=== PATIENT | female | born 1945 | race Caucasian/White ===

== ENCOUNTER 2017-01-16 20:19 | Inpatient (IN) | payer OTHER, BC ==
[~2017-01-16] VITALS: Ht 160 cm; Wt 59.8 kg
[~2017-01-16 20:19] MED LIST: ARM1 PO; ATOR10TA82 PO; HYDR25TA4 PO; LISI-461 PO; SYN88 PO; TRAM-10 PO
[2017-01-16] MEDS ORDERED: SODIUM CHLORIDE 0.9% 1000ML 1,000 ML IV STA ×2 (21:08→22:49)
[2017-01-16 21:25] LABS: HEMATOCRIT 33.1 % (37-47); MEAN CELL VOLUME 86.6 fL (80-100); MEAN CORPUSCULAR HEMOGLOBIN 29.3 pg (25-34); MEAN CORPUSCULAR HGB CONC 33.8 g/dl (32-36); MEAN PLATELET VOLUME 8.3 fL (7.4-10.4); PLATELET COUNT 588 K/uL (130-400); RED BLOOD COUNT 3.82 M/uL (4.2-5.4); WHITE BLOOD COUNT 14.45 K/uL (4.8-10.8)
[2017-01-16 21:39] LABS: INR 1.2 (0.9-1.1); PARTIAL THROMBOPLASTIN RATIO 1.3; PROTHROMBIN TIME (PATIENT) 12.4 SECONDS (9.0-12.0)
[2017-01-16 21:51] LABS: BASO ABS # 0.13 K/uL (0-0.2); BASOPHIL % 0.9 %; COMPLETE YES; EOSINOPHIL % 1.7 %; LYMPH ABS # 1.63 K/uL (1.2-3.4); LYMPHOCYTE % 11.3 %; MYELOCYTE % 1.7 %; NEUTROPHILS % 80.1 %
[2017-01-16 22:20] LABS: BUN/CREATININE RATIO 9.6 (10-20); CALCIUM 9.1 mg/dl (8.5-10.1); CREATININE 9.2 mg/dl (0.60-1.20); MAGNESIUM 1.4 mg/dl (1.8-2.4); POTASSIUM 3.8 mmol/L (3.5-5.1); THYROID STIMULATING HORMONE 1.83 uIu/ml (0.300-4.500)
--- NOTE | 2017-01-16 22:39 | DIAGNOSTIC IMAGING REPORT ---
CT OF THE ABDOMEN AND PELVIS WITHOUT CONTRAST CLINICAL HISTORY: Acute renal failure. COMPARISON STUDY: CT of the abdomen and pelvis March 15, 2015. TECHNIQUE: Axial images of the abdomen and pelvis were obtained without IV contrast. Images were reviewed in the axial, sagittal, and coronal planes. FINDINGS: Visualized portions of the lower chest demonstrate a moderate sized hiatal hernia. There is a possible mildly enlarged lymph node adjacent to the hiatal hernia that measures 2.1 x 1.5 cm. No pneumatosis, free air or portal venous gas is present. There is mild dilatation of both collecting systems. There is no em hydronephrosis. There are no ureteral calculus. Unenhanced images of the liver, spleen, adrenal glands and pancreas are unremarkable. There is no biliary ductal dilatation status post cholecystectomy. There is slight mucosal fat deposition within the colon. The appendix is normal. There are calcified uterine fibroids. No suspicious skeletal lesions are identified. IMPRESSION: 1. Slight dilatation of both collecting systems without em hydronephrosis. No urinary calculi. 2. Partially visualized nodule adjacent to a hiatal hernia within the lower chest. This could reflect an enlarged lymph node. A nonemergent chest CT is recommended. 3. No bowel obstruction. Electronically signed by: Gustabo Queen M.D. 01/16/2017 10:38 PM Dictated Date/Time: 01/16/2017 10:31 PM
[2017-01-17] VITALS (9 sets, daily range): BP systolic 96–134; BP diastolic 60–84; PULSE 71–85; TEMP 36.4–36.7; O2SAT 93–100; Ht 160 cm; Wt 59.8 kg
--- NOTE | 2017-01-17 00:09 | EMERGENCY ROOM VISIT NOTE ---
History Report prepared by Neeraj: Laura Morales Under the Supervision of: Dr. Lars Ya M.D. First contact with patient: 21:08 Chief Complaint: ABNORMAL LABS Stated Complaint: ABNORMAL LABS- PHYSICIAN REFERRED History of Present Illness The patient is a 71 year old female who presents to the Emergency Room with complaints of sudden abnormal labs that were noticed earlier today. The patient was reported to have a creatinine of 8.8. The patient was told to come into the ED for further evaluation of her hypotension and elevated kidney function tests. The patient states that she developed a loss of appetite about 10 days ago and has been experiencing generalized "malaise" for the past week. She is also experiencing diarrhea, which started 4 days ago. The patient state that she has lost 8 lbs over the past week. Pt denies LOC, headache, fevers, chills, diaphoresis, visual changes, neck pain, chest pain, breathing difficulties, nausea, vomiting, abdominal pain, back pain, melena, hematochezia, urinary symptoms, numbness, weakness, lymphadenopathy, rash, or other complaints. The patient also denies any recent antibiotic use or sick contacts. She states that she went to [place] 3 weeks ago, but has not been on any long trips since then. The patient adds that she has a history of pancreatitis secondary to a gall stone. Source of History: patient Onset: earlier today Position: other (global) Quality: other (abnormal labs) Timing: other (sudden) Associated Symptoms: + diarrhea Note: loss of appetite, generalized "malaise" Review of Systems See HPI for pertinent positives and negatives. A total of ten systems were reviewed and were otherwise negative. Past Medical & Surgical Medical Problems: (1) Breast cancer (2) HTN (hypertension) (3) Hyperlipidemia Family History Cancer Social History Smoking Status: Former Smoker Alcohol Use: other Drug Use: none Housing Status: lives alone Occupation Status: employed Current/Historical Medications Scheduled Anastrozole (Anastrozole), 1 MG PO DAILY Atorvastatin (Lipitor), 5 MG PO DAILY Hydrochlorothiazide (Hctz), 25 MG PO DAILY Levothyroxine Sodium (Synthroid), 88 MCG PO DAILY Lisinopril (Lisinopril), 10 MG PO DAILY Scheduled PRN Tramadol (Ultram), 1 TAB PO prn PRN for Pain Allergies Coded Allergies: Exemestane (Verified Allergy, Intermediate, HIVES, 01/16/17) Physical Exam Vital Signs Date Time Temp Pulse Resp B/P Pulse Ox O2 Delivery O2 Flow Rate FiO2 01/16/17 23:00 79 16 111/77 100 Room Air 01/16/17 21:31 79 01/16/17 21:30 76 20 99/65 100 Room Air 01/16/17 21:19 88 16 103/68 100 Room Air 01/16/17 21:19 98 Room Air 01/16/17 20:59 36.5 90 20 90/64 96 Room Air Physical Exam GENERAL: Awake, alert, well-appearing, in no distress HENT: Normocephalic, atraumatic. Oropharynx unremarkable. EYES: Normal conjunctiva. Sclera non-icteric. NECK: Supple. No nuchal rigidity. FROM. No JVD. RESPIRATORY: Clear to auscultation. CARDIAC: Regular rate, normal rhythm. Extremities warm and well perfused. Pulses equal. ABDOMEN: Soft, non-distended. No tenderness to palpation. No rebound or guarding. No masses. RECTAL: Deferred. MUSCULOSKELETAL: Chest examination reveals no tenderness. The back is symmetrical on inspection without obvious abnormality. There is no CVA tenderness to palpation. No joint edema. LOWER EXTREMITIES: Calves are equal size bilaterally and non-tender. No edema. No discoloration. NEURO: Normal sensorium. No sensory or motor deficits noted. SKIN: No rash or jaundice noted. Medical Decision & Procedures ER Provider Diagnostic Interpretation: CT results as stated below per my review and radiologist interpretation CT OF THE ABDOMEN AND PELVIS WITHOUT CONTRAST IMPRESSION: 1. Slight dilatation of both collecting systems without em hydronephrosis. No urinary calculi. 2. Partially visualized nodule adjacent to a hiatal hernia within the lower chest. This could reflect an enlarged lymph node. A nonemergent chest CT is recommended. 3. No bowel obstruction. Electronically signed by: Gustabo Queen M.D. 01/16/2017 10:38 PM Dictated Date/Time: 01/16/2017 10:31 PM Laboratory Results 01/16/17 21:13 Red Blood Count 3.82, Mean Corpuscular Volume 86.6, Mean Corpuscular Hemoglobin 29.3, Mean Corpuscular Hemoglobin Concent 33.8, Mean Platelet Volume 8.3 01/16/17 21:13 Test 01/16/17 21:13 01/16/17 23:00 White Blood Count 14.45 K/uL (4.8-10.8) Red Blood Count 3.82 M/uL (4.2-5.4) Hemoglobin 11.2 g/dL (12.0-16.0) Hematocrit 33.1 % (37-47) Mean Corpuscular Volume 86.6 fL (80-100) Mean Corpuscular Hemoglobin 29.3 pg (25-34) Mean Corpuscular Hemoglobin Concent 33.8 g/dl (32-36) Platelet Count 588 K/uL (130-400) Mean Platelet Volume 8.3 fL (7.4-10.4) RDW Standard Deviation 40.3 fL (36.4-46.3) RDW Coefficient of Variation 12.6 % (11.5-14.5) Neutrophils % (Manual) 80.1 % Lymphocytes % (Manual) 11.3 % Monocytes % (Manual) 4.3 % Eosinophils % (Manual) 1.7 % Basophils % (Manual) 0.9 % Myelocytes % 1.7 % Neutrophils # (Manual) 11.57 K/uL (1.4-6.5) Total Absolute Neutrophils 11.57 K/uL (1.4-6.5) Lymphocytes # (Manual) 1.63 K/uL (1.2-3.4) Total Absolute Lymphocytes 1.63 K/uL (1.2-3.4) Monocytes # (Manual) 0.62 K/uL (0.11-0.59) Eosinophils # (Manual) 0.25 K/uL (0-0.5) Basophils # (Manual) 0.13 K/uL (0-0.2) Myelocytes # 0.25 K/uL (0-0) Red Blood Cell Morphology Unremarkable Prothrombin Time 12.4 SECONDS (9.0-12.0) Prothromb Time International Ratio 1.2 (0.9-1.1) Activated Partial Thromboplast Time 33.2 SECONDS (21.0-31.0) Partial Thromboplastin Ratio 1.3 Anion Gap 16.0 mmol/L (3-11) Est Creatinine Clear Calc Drug Dose 4.6 ml/min Estimated GFR () 4.5 Estimated GFR (Non- 3.8 BUN/Creatinine Ratio 9.6 (10-20) Calcium Level 9.1 mg/dl (8.5-10.1) Magnesium Level 1.4 mg/dl (1.8-2.4) Total Bilirubin 0.3 mg/dl (0.2-1) Direct Bilirubin 0.1 mg/dl (0-0.2) Aspartate Amino Transf (AST/SGOT) 6 U/L (15-37) Alanine Aminotransferase (ALT/SGPT) 13 U/L (12-78) Alkaline Phosphatase 78 U/L (45-117) Total Protein 9.2 gm/dl (6.4-8.2) Albumin 3.4 gm/dl (3.4-5.0) Lipase 338 U/L (73-393) Thyroid Stimulating Hormone (TSH) 1.830 uIu/ml (0.300-4.500) Laboratory results reviewed by me Medications Administered Medications (Trade) Dose Ordered Sig/Vega Route Start Time Stop Time Status Last Admin Dose Admin Sodium Chloride 1,000 ml @ 999 mls/hr Q1H1M STAT IV 01/16/17 21:08 01/16/17 22:08 DC 01/16/17 21:21 999 MLS/HR Sodium Chloride (Nss 1000ml) 1,000 ml @ 200 mls/hr Q5H STAT IV 01/16/17 22:49 01/17/17 03:48 01/16/17 23:17 200 MLS/HR ECG Indication: weakness Rate (beats per minute): 81 Rhythm: normal sinus Findings: Q waves (Inferior), no acute ischemic change ED Course 2107: Ordered Sodium Chloride 1000 ml @ 999 mls/hr IV 2117: The patient was evaluated in room B11. A complete history and physical exam was performed. 2246: Upon reexamination, the patient was resting comfortably. I discussed the test results and treatment plan with her. The patient will be evaluated for further management. 2248: Ordered Sodium Chloride 1000 ml @ 200 mls/hr IV 0: Discussed the patient's case with Dr. Cuco BAGLEY. The patient will be evaluated for further treatment and disposition. Medical Decision Triage Nursing notes reviewed. The patient's presentation and history were concerning for possible renal failure. Etiologies such as metabolic, infection, hypo/hyperglycemia, electrolyte abnormalities, cardiac sources, intracerebral event, toxicologic, neurologic, as well as others were entertained. The patient was evaluated. She has a significant elevation of her creatinine. She notes feeling some general malaise but has no specific pain. She has had some loose stool. Stool studies as an outpatient or pending per the patient. She was hydrated. The patient underwent CT imaging which did not reveal any specific obstruction or major issues with the kidneys. The patient had a mild leukocytosis of 14,000. Her chemistry panel was unremarkable. LFTs, lipase, and TSH were unremarkable. Magnesium is mildly low. The patient has a urinalysis collected but it is still pending. Consultation was made with internal medicine. The patient was evaluated in the emergency department for further treatment. The chart was completed utilizing [employer] Speech voice recognition software. Grammatical errors, random word insertions, pronoun errors, and incomplete sentences are an occasional consequence of this system due to software limitations, ambient noise, and hardware issues. Any formal questions or concerns about the content, text, or information contained within the body of this dictation should be directly addressed to the physician for clarification. Consults Time Called: -- Consulting Physician: Dr. Cuco BAGLEY Returned Call: [phone] Discussed the patient's case with Dr. Cuco BAGLEY. The patient will be evaluated for further treatment and disposition. Impression Primary Impression: Acute renal failure Scribe Attestation The scribe's documentation has been prepared under my direction and personally reviewed by me in its entirety. I confirm that the note above accurately reflects all work, treatment, procedures, and medical decision making performed by me. Departure Information Dispostion Being Evaluated By Hospitalist Referrals Travis Valencia M.D. (PCP) Patient Instructions My [facility] Problem Qualifiers Primary Impression: Acute renal failure Acute renal failure type: unspecified Qualified Codes: N17.9 - Acute kidney failure, unspecified
[2017-01-17 00:10] LABS: URINE APPEARANCE CLEAR (CLEAR); URINE BILIRUBIN NEG (NEG); URINE COLOR YELLOW; URINE NITRITE NEG (NEG); URINE SPECIFIC GRAVITY 1.008 (1.000-1.030); UROBILINOGEN NEG (NEG)
[2017-01-17 00:28] LABS: MANUAL MICROSCOPIC REQUIRED? NO; REVIEW REQ? YES
[2017-01-17] MEDS ORDERED: ZOLPIDEM TARTRATE 5 MG TAB PO PRN (01:30)
[2017-01-17] MEDS ORDERED: TRAMADOL HCL 50 MG TAB PO PRN (01:30)
[2017-01-17] MEDS ORDERED: NITROGLYCERIN 0.4 MG SL PER TAB CHARGE SL PRN (01:30)
[2017-01-17] MEDS ORDERED: ACETAMINOPHEN 325 MG TAB PO PRN (01:30)
[2017-01-17] MEDS ORDERED: ONDANSETRON INJ 2 MG/ML 2 ML VIAL IV PRN (01:45)
[2017-01-17] MEDS ORDERED: SODIUM CHLORIDE 0.9% 1000ML 1,000 ML IV SCH (03:00)
[2017-01-17] MEDS ORDERED: MAGNESIUM SULFATE 1GM / D5W 1 GM in PREMIXED IN D5W 100 ML IV STA (03:07)
[2017-01-17] MEDS: CEFTRIAXONE SOD INJ 1 GM in DEXTROSE 5% ADD-VANTAGE 50ML 50 ML IV SCH (03:37)
--- NOTE | 2017-01-17 05:44 | History and Physical ---
History & Physical Date & Time of Service: Jan 17, 2017 at 05:29. Date of Physical examination 01/16/2017 Chief Complaint: Acute Renal Failure, Hypomagnesemia Primary Care Physician: Travis Valencia M.D. History of Present Illness Source: patient The patient is a 71-year-old female who presents to the emergency department after being referred from her doctor's office for hypotension and abnormal kidney function tests. Patient reports that she lost her appetite about 10 days previously and has been feeling fatigued and more lethargic over the past week. She did start to experience diarrhea about 4 days ago and has persisted. She reports an 8 pound weight loss over the past week. She denies any recent travel or sick contacts. She has not been on any recent antibiotics. Past Medical/Surgical History Medical Problems: (1) Breast cancer Status: Chronic (2) HTN (hypertension) Status: Chronic (3) Hyperlipidemia Status: Chronic Family History Cancer Social History Smoking Status: Former Smoker Smokeless Tobacco Use: No Alcohol Use: none Drug Use: none Occupational Status: employed Multi-Drug Resistant Organisms History of MDRO: No Allergies Coded Allergies: Exemestane (Verified Allergy, Intermediate, HIVES, 01/16/17) Home Medications Scheduled Anastrozole (Anastrozole), 1 MG PO DAILY Atorvastatin (Lipitor), 5 MG PO DAILY Hydrochlorothiazide (Hctz), 25 MG PO DAILY Levothyroxine Sodium (Synthroid), 88 MCG PO DAILY Lisinopril (Lisinopril), 10 MG PO DAILY Scheduled PRN Tramadol (Ultram), 1 TAB PO prn PRN for Pain Review of Systems The patient denies chest pain, palpitations, shortness of breath, cough, lower extremity swelling, vision change, hearing change, sore throat, fevers, chills, sweats, vomiting, abdominal pain, pelvic pain, blood in urine or stool, dysuria , urinary frequency or urgency, memory loss, rash, abnormal bruising or bleeding , imbalance, focal weakness, numbness or tingling in arms or legs, arthralgias or myalgias, back or neck pain, night sweats, or allergy symptoms. The review of systems is otherwise negative other than for that already noted above, and at least 10 systems have been reviewed. Physical Exam Vital Signs Date Time Temp Pulse Resp B/P Pulse Ox O2 Delivery O2 Flow Rate FiO2 01/17/17 03:50 36.4 85 18 134/84 100 Room Air 01/17/17 02:00 76 16 107/61 99 Room Air 01/17/17 01:04 75 01/17/17 01:00 76 16 113/77 99 Room Air 01/16/17 23:00 79 16 111/77 100 Room Air 01/16/17 21:31 79 01/16/17 21:30 76 20 99/65 100 Room Air 01/16/17 21:19 88 16 103/68 100 Room Air 01/16/17 21:19 98 Room Air 01/16/17 20:59 36.5 90 20 90/64 96 Room Air The patient is awake, well-developed and adequately nourished, alert and oriented 3, normocephalic and atraumatic, lying in bed and in no acute distress. HEENT--PERRL, EOMI, mucous membranes and oropharynx very dry. Neck--supple, no JVD or bruits, thyroid normal, trachea midline, no adenopathy. Heart--normal S1 and S2, no extra beats, no murmurs, rubs or gallops. Lungs--clear bilaterally with good air movement, no respiratory distress, no accessory muscle use. Abdomen--normal bowel sounds and soft, nontender and nondistended, no hernias or masses, no organomegaly. Extremities--no cyanosis, clubbing or edema. There are good distal pulses b/l. Dermatologic--normal skin turgor, normal color, warm and dry, no abnormal lymph nodes, no rash. Neurologic--cranial nerves II through XII grossly intact, motor and sensory examination normal. Rheumatologic--normal range of motion, nontender, muscles and joints. Psychiatric--normal affect. Diagnostics Laboratory Results Results Past 24 Hours Test 01/16/17 21:13 01/16/17 23:00 Range/Units White Blood Count 14.45 4.8-10.8 K/uL Red Blood Count 3.82 4.2-5.4 M/uL Hemoglobin 11.2 12.0-16.0 g/dL Hematocrit 33.1 37-47 % Mean Corpuscular Volume 86.6 80-100 fL Mean Corpuscular Hemoglobin 29.3 25-34 pg Mean Corpuscular Hemoglobin Concent 33.8 32-36 g/dl Platelet Count 588 130-400 K/uL Mean Platelet Volume 8.3 7.4-10.4 fL RDW Standard Deviation 40.3 36.4-46.3 fL RDW Coefficient of Variation 12.6 11.5-14.5 % Neutrophils % (Manual) 80.1 % Lymphocytes % (Manual) 11.3 % Monocytes % (Manual) 4.3 % Eosinophils % (Manual) 1.7 % Basophils % (Manual) 0.9 % Myelocytes % 1.7 % Neutrophils # (Manual) 11.57 1.4-6.5 K/uL Total Absolute Neutrophils 11.57 1.4-6.5 K/uL Lymphocytes # (Manual) 1.63 1.2-3.4 K/uL Total Absolute Lymphocytes 1.63 1.2-3.4 K/uL Monocytes # (Manual) 0.62 0.11-0.59 K/uL Eosinophils # (Manual) 0.25 0-0.5 K/uL Basophils # (Manual) 0.13 0-0.2 K/uL Myelocytes # 0.25 0-0 K/uL Red Blood Cell Morphology Unremarkable Prothrombin Time 12.4 9.0-12.0 SECONDS Prothromb Time International Ratio 1.2 0.9-1.1 Activated Partial Thromboplast Time 33.2 21.0-31.0 SECONDS Partial Thromboplastin Ratio 1.3 Sodium Level 135 136-145 mmol/L Potassium Level 3.8 3.5-5.1 mmol/L Chloride Level 101 98-107 mmol/L Carbon Dioxide Level 18 21-32 mmol/L Anion Gap 16.0 3-11 mmol/L Blood Urea Nitrogen 88 7-18 mg/dl Creatinine 9.20 0.60-1.20 mg/dl Est Creatinine Clear Calc Drug Dose 4.6 ml/min Estimated GFR () 4.5 Estimated GFR (Non- 3.8 BUN/Creatinine Ratio 9.6 10-20 Random Glucose 107 70-99 mg/dl Calcium Level 9.1 8.5-10.1 mg/dl Magnesium Level 1.4 1.8-2.4 mg/dl Total Bilirubin 0.3 0.2-1 mg/dl Direct Bilirubin 0.1 0-0.2 mg/dl Aspartate Amino Transf (AST/SGOT) 6 15-37 U/L Alanine Aminotransferase (ALT/SGPT) 13 12-78 U/L Alkaline Phosphatase 78 45-117 U/L Total Protein 9.2 6.4-8.2 gm/dl Albumin 3.4 3.4-5.0 gm/dl Lipase 338 73-393 U/L Thyroid Stimulating Hormone (TSH) 1.830 0.300-4.500 uIu/ml Urine Color YELLOW Urine Appearance CLEAR CLEAR Urine pH 6.0 4.5-7.5 Urine Specific [place] 1.008 1.000-1.030 Urine Protein 1+ NEG Urine Glucose (UA) NEG NEG Urine Ketones NEG NEG Urine Occult Blood TRACE NEG Urine Nitrite NEG NEG Urine Bilirubin NEG NEG Urine Urobilinogen NEG NEG Urine Leukocyte Esterase LARGE NEG Urine WBC (Auto) >30 0-5 /hpf Urine RBC (Auto) 0-4 0-4 /hpf Urine Hyaline Casts (Auto) 1-5 0-5 /lpf Urine Epithelial Cells (Auto) 10-20 0-5 /lpf Urine Bacteria (Auto) NEG NEG Microbiology Results 01/16/17 Urine Culture, Received Pending Diagnostic Radiology Patient Name: MASOUD COREAS Unit Number: [id number] Dictated: 01/16/172230 Transcribed: 01/16/172230 JEANNIE Printed Date/Time: [~ rep prt dt]/[~ rep prt tm] [~ rep ct labl] - [~ rep ct ivnm] [facility] [place] [address] Dictated: 01/16/172230 Transcribed: 01/16/172230 JEANNIE Printed Date/Time: [~ rep prt dt]/[~ rep prt tm] [~ rep ct labl] - [~ rep ct ivnm] CT OF THE ABDOMEN AND PELVIS WITHOUT CONTRAST CLINICAL HISTORY: Acute renal failure. COMPARISON STUDY: CT of the abdomen and pelvis March 15, 2015. TECHNIQUE: Axial images of the abdomen and pelvis were obtained without IV contrast. Images were reviewed in the axial, sagittal, and coronal planes. FINDINGS: Visualized portions of the lower chest demonstrate a moderate sized hiatal hernia. There is a possible mildly enlarged lymph node adjacent to the hiatal hernia that measures 2.1 x 1.5 cm. No pneumatosis, free air or portal venous gas is present. There is mild dilatation of both collecting systems. There is no em hydronephrosis. There are no ureteral calculus. Unenhanced images of the liver, spleen, adrenal glands and pancreas are unremarkable. There is no biliary ductal dilatation status post cholecystectomy. There is slight mucosal fat deposition within the colon. The appendix is normal. There are calcified uterine fibroids. No suspicious skeletal lesions are identified. IMPRESSION: 1. Slight dilatation of both collecting systems without em hydronephrosis. No urinary calculi. 2. Partially visualized nodule adjacent to a hiatal hernia within the lower chest. This could reflect an enlarged lymph node. A nonemergent chest CT is recommended. 3. No bowel obstruction. Electronically signed by: Gustabo Queen M.D. 01/16/2017 10:38 PM Dictated Date/Time: 01/16/2017 10:31 PM The status of this report is Signed. Draft = Not yet reviewed or approved by Radiologist. Signed = Reviewed and approved by Radiologist. <AttendingPhy></AttendingPhy> <FamilyPhy>Travis Valencia M.D.</FamilyPhy> < PrimaryPhy>Travis Valencia M.D.</PrimaryPhy> <UnitNumber>[id number]</UnitNumber > <VisitNumber>[id number]</VisitNumber> <PatientName>LYUDMILA,MASOUD Rosario</ PatientName> <DateOfBirth>1945</DateOfBirth> <Location>[facility]</Location> < ServiceDate>01/16/17</ServiceDate> <MNE>ESINDI</MNE> <OrderingPhy>Lars Ya MD</OrderingPhy> <OrderingPhyMNE>f rep ord dr light</OrderingPhyMNE> < DictatingPhyMNE>f rep dict dr light</DictatingPhyMNE> <CCListMNE>f rep ct kuldeep</ CCListMNE> <AdmittingPhyMNE>f pt admit dr light</AdmittingPhyMNE> <AttendingPhyMNE >f pt attend dr light</AttendingPhyMNE> <ConsultingPhyMNE>f pt consult dr light</ConsultingPhyMNE> <FamilyPhyMNE>f pt fam dr light</FamilyPhyMNE> <OtherPhyMNE>f pt other dr light</OtherPhyMNE> < PrimaryPhyMNE>f pt prim care dr light</PrimaryPhyMNE> <ReferringPhyMNE>f pt referring dr light</ReferringPhyMNE> EKG EKG shows normal sinus rhythm at 81 bpm, no acute ST-T changes, and no change compared to 03/18/2015. Impression Assessment and Plan Acute renal failure/dehydration--patient's creatinine in the outpatient setting was 8.8, and in the emergency department is 9.2. She'll be admitted to the telemetry unit and will continue hydration with normal saline at 200 ML's per hour. We'll follow serial CBC with differential, BMP and magnesium levels. We will hold lisinopril 10 mg by mouth daily, and HCTZ 25 mg by mouth daily. Her diarrhea has undoubtedly contributed to her deficient renal dysfunction. Her urine looks like it might be infected, and will start ceftriaxone [address] of the abdomen and pelvis did not show any acute pathology. We'll consult nephrology. Diarrhea--stool studies are pending at this time. She'll be placed on a full liquid diet for now. Place on probiotics. Hypomagnesemia--magnesium level on intravenous 1.4. We'll give 1 g magnesium IV and repeat labs in the a.m. Breast cancer--continue anastrozole 1 mg by mouth daily. Hypercholesterolemia--continue atorvastatin 5 mg by mouth daily. Hypothyroidism-continue levothyroxine sodium 88 g by mouth daily. Level of Care Telemetry Advanced Directives Existing Advance Directive: No Existing Living Will: No Existing Power of Justice Court Judge: No Resuscitation Status FULL RESUSCITATION VTE Prophylaxis VTE Risk Assessment Done? Y/N: Yes Risk Level: Moderate Given or contraindicated: SCD's Social Service Consult None Apply
[2017-01-17] MEDS: LEVOTHYROXINE 88 MCG TAB PO SCH (06:19)
[2017-01-17] MEDS ORDERED: ATORVASTATIN 10 MG TAB PO SCH (09:00)
[2017-01-17] MEDS: FAMOTIDINE 20 MG TAB PO SCH ×2 (09:03→20:49)
[2017-01-17] MEDS: SODIUM BICARBONATE 8.4% INJ 150 MEQ in DEXTROSE 5% 1000ML 1,000 ML IV SCH ×2 (09:10→20:48)
[2017-01-17] MEDS: LACTOBACILLUS ACIDOPHILUS (FLORANEX) TAB PO SCH ×3 (09:10→17:09)
[2017-01-17] MEDS: ANASTROZOLE 1 MG TAB PO SCH (09:10)
[2017-01-17 09:49] LABS: PHOSPHORUS 6.9 mg/dl (2.5-4.9)
--- NOTE | 2017-01-17 11:25 | Nephrology Consultation ---
Nephrology Consultation Date & Providers Date of Consultation: Jan 17, 2017. Primary Care Provider: Travis Valencia M.D. Referring Provider: Reason for Consultation Evaluation management for acute kidney injury and metabolic acidosis. History of Present Illness Carissa Is a 71-year-old female with past medical history significant for well- controlled hypertension, prior history of breast cancer, pancreatitis, cholecystectomy admitted to the hospital with acute kidney injury. nephrologic consult was requested for further evaluation management for acute kidney injury ppm. Electronic medical records including labs and imaging are reviewed in detail during patient's visit. Carissa has no history of chronic kidney disease, baseline creatinine has been around 0.9-1.0. She has been otherwise healthy until 2-3 weeks ago when she started overall not feeling well, nausea,anorexia and started losing weight, lost almost 8 pounds over 2 weeks. 5 days prior to admission she started having diarrhea with watery stool without any blood in the stool. Denied vomiting or abdominal pain. she has been trying to drink liquids to compensate. she continued taking lisinopril and hydrochlorothiazide. Took Tylenol occasionally but did not take any NSAIDs. did not have any arthralgia, skin rashes, headache, hemoptysis, hematemesis, sinus congestion, back or flank pain , lower extremity edema, hematuria or foamy urine. She has been voiding normally. She has been feeling lightheaded and went to see her primary care physician yesterday. Later in the evening she was called home and told to come to the emergency room as she was found to have acute kidney injury with creatinine above 8. On admission creatinine was 9.2 and BUN was 88. urinalysis on admission showed 1+ proteinuria, pyuria And microscopic hematuria. CT scan of abdomen and pelvis is at IV contrast was concerning for bilateral mild pelvi caliectasis, no nephrolithiasis. 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 She has been following with Oncology with yearly imaging study, no recurrence. Has history of hypertension, seems to be well controlled, was on lisinopril and hydrochlorothiazide, currently on hold. Nonsmoker drinks a glass of wine daily, no family history of chronic kidney disease or end-stage renal disease. 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 Currently she denies any shortness of breath or chest pain, nausea slightly better and was able to have breakfast this morning. Allergies Coded Allergies: Exemestane (Verified Allergy, Intermediate, HIVES, 01/16/17) Inpatient Medications Current Inpatient Medications Medications (Trade) Dose Ordered Sig/Vega Route Start Time Stop Time Status Last Admin Dose Admin Anastrozole (Arimidex Tab) 1 mg DAILY PO 01/17/17 09:00 02/16/17 08:59 Atorvastatin Calcium (Lipitor Tab) 5 mg DAILY PO 01/17/17 09:00 02/16/17 08:59 Levothyroxine Sodium (Synthroid Tab) 88 mcg DAILYBB PO 01/17/17 06:30 02/16/17 06:59 01/17/17 06:19 88 MCG Tramadol HCl 50 mg 50 mg Q4H PRN PO 01/17/17 01:30 02/16/17 01:29 Sodium Chloride (Nss 1000ml) 1,000 ml @ 200 mls/hr Q5H IV 01/17/17 03:00 02/16/17 02:59 01/17/17 03:26 200 MLS/HR Acetaminophen (Tylenol Tab) 650 mg Q4H PRN PO 01/17/17 01:30 02/16/17 01:29 Zolpidem Tartrate (Ambien Tab) 5 mg HSZ PRN PO 01/17/17 01:30 02/16/17 01:29 Nitroglycerin 0.4 mg 0.4 mg UD PRN SL 01/17/17 01:30 02/16/17 01:29 Ceftriaxone Sodium/Dextrose (Rocephin Inj/ Dextrose Add-Perkins 50ML) 50 ml @ 100 mls/hr Q24H IV 01/17/17 04:00 01/27/17 03:59 01/17/17 03:37 100 MLS/HR Famotidine (Pepcid Tab) 20 mg BID PO 01/17/17 09:00 02/16/17 08:59 Ondansetron HCl (Zofran Inj) 4 mg Q6H PRN IV 01/17/17 01:45 02/16/17 01:44 Lactobacillus Acidophilus (Floranex Tab) 4 tab TIDM PO 01/17/17 08:00 02/16/17 07:59 Family History Cancer Social History Smoking Status: Former Smoker Smokeless Tobacco Use: No Alcohol Use: none Drug Use: none Occupation: employed Review of Systems A complete review of systems was performed. Pertinent positives are noted above. All other systems are negative. Physical Exam Date Time Temp Pulse Resp B/P Pulse Ox O2 Delivery O2 Flow Rate FiO2 01/17/17 07:25 36.7 71 18 101/60 98 Room Air 01/17/17 03:50 36.4 85 18 134/84 100 Room Air 01/17/17 02:00 76 16 107/61 99 Room Air 01/17/17 01:04 75 01/17/17 01:00 76 16 113/77 99 Room Air 01/16/17 23:00 79 16 111/77 100 Room Air 01/16/17 21:31 79 01/16/17 21:30 76 20 99/65 100 Room Air 01/16/17 21:19 88 16 103/68 100 Room Air 01/16/17 21:19 98 Room Air 01/16/17 20:59 36.5 90 20 90/64 96 Room Air GENERAL: Elderly female, AAA x 3, anxious and tearful, not in any distress. HEENT: Atraumatic, normocephalic. NECK: Supple, no JVD, no carotid bruit appreciated. ENT: No sinus tenderness MOUTH and THROAT: Moist oral mucosa, no oral ulcer or pharyngeal erythema RESPIRATORY: Normal breathing efforts, no accessory muscle use, clear to auscultation bilaterally, no wheezes or rales. CARDIOVASCULAR: S1, S2 normal, rate rhythm regular. ABDOMEN: Soft, nontender, positive bowel sound. MUSCULOSKELETAL: No CVA tenderness. No joint swelling, erythema or tenderness. Normal range of motion. SKIN: No skin rash EXTREMITY: No lower extremity edema NEURO: No gross focal neurological deficit, speech fluent. PSYCHIATRY: Normal mood and judgment Laboratory Results Last 24 Hours Test 01/16/17 21:13 01/16/17 23:00 White Blood Count 14.45 K/uL Red Blood Count 3.82 M/uL Hemoglobin 11.2 g/dL Hematocrit 33.1 % Mean Corpuscular Volume 86.6 fL Mean Corpuscular Hemoglobin 29.3 pg Mean Corpuscular Hemoglobin Concent 33.8 g/dl Platelet Count 588 K/uL Mean Platelet Volume 8.3 fL RDW Standard Deviation 40.3 fL RDW Coefficient of Variation 12.6 % Neutrophils % (Manual) 80.1 % Lymphocytes % (Manual) 11.3 % Monocytes % (Manual) 4.3 % Eosinophils % (Manual) 1.7 % Basophils % (Manual) 0.9 % Myelocytes % 1.7 % Neutrophils # (Manual) 11.57 K/uL Total Absolute Neutrophils 11.57 K/uL Lymphocytes # (Manual) 1.63 K/uL Total Absolute Lymphocytes 1.63 K/uL Monocytes # (Manual) 0.62 K/uL Eosinophils # (Manual) 0.25 K/uL Basophils # (Manual) 0.13 K/uL Myelocytes # 0.25 K/uL Red Blood Cell Morphology Unremarkable Prothrombin Time 12.4 SECONDS Prothromb Time International Ratio 1.2 Activated Partial Thromboplast Time 33.2 SECONDS Partial Thromboplastin Ratio 1.3 Sodium Level 135 mmol/L Potassium Level 3.8 mmol/L Chloride Level 101 mmol/L Carbon Dioxide Level 18 mmol/L Anion Gap 16.0 mmol/L Blood Urea Nitrogen 88 mg/dl Creatinine 9.20 mg/dl Est Creatinine Clear Calc Drug Dose 4.6 ml/min Estimated GFR () 4.5 Estimated GFR (Non- 3.8 BUN/Creatinine Ratio 9.6 Random Glucose 107 mg/dl Calcium Level 9.1 mg/dl Magnesium Level 1.4 mg/dl Total Bilirubin 0.3 mg/dl Direct Bilirubin 0.1 mg/dl Aspartate Amino Transf (AST/SGOT) 6 U/L Alanine Aminotransferase (ALT/SGPT) 13 U/L Alkaline Phosphatase 78 U/L Total Protein 9.2 gm/dl Albumin 3.4 gm/dl Lipase 338 U/L Thyroid Stimulating Hormone (TSH) 1.830 uIu/ml Urine Color YELLOW Urine Appearance CLEAR Urine pH 6.0 Urine Specific [place] 1.008 Urine Protein 1+ Urine Glucose (UA) NEG Urine Ketones NEG Urine Occult Blood TRACE Urine Nitrite NEG Urine Bilirubin NEG Urine Urobilinogen NEG Urine Leukocyte Esterase LARGE Urine WBC (Auto) >30 /hpf Urine RBC (Auto) 0-4 /hpf Urine Hyaline Casts (Auto) 1-5 /lpf Urine Epithelial Cells (Auto) 10-20 /lpf Urine Bacteria (Auto) NEG Impression (1) Acute kidney injury (2) Metabolic acidosis, increased anion gap (3) Anemia (4) HTN (hypertension) (5) Hypomagnesemia Carissa is a 71-year-old female with no prior history of chronic kidney disease admitted with them 2 weeks history of anorexia, nausea, weight loss, feeling poorly and 5 days history of loose watery diarrhea. He she has been hypotensive and lightheaded prior to coming to the hospital and has been taking lisinopril and hydrochlorothiazide with ongoing diarrhea and poor p.o. intake. no NSAID use, no symptom suggestive of systemic vasculitis. Urinalysis was positive for low grade proteinuria, microscopic hematuria and pyuria. CT abdomen pelvis concerning for bilateral mild hydronephrosis without any nephrolithiasis or evidence of retroperitoneal fibrosis however, CT was done without contrast considering acute kidney injury. she received almost 4 liters of IV fluid since admission and blood pressure now slightly better and overall she is feeling a be eat better. Unclear etiology for acute kidney injury at this point however, differentials include prerenal versus ATN, cannot exclude possibility for intrinsic renal disease or some form of vasculitis. Unclear whether bilateral mild hydronephrosis is having any impact on her acute kidney injury. No retroperitoneal lymphadenopathy identified however with her history of breast cancer that would be always a concern. Recommendations --change IV fluid to D5 water with bicarb at 100 mL/hour -- check urine electrolytes and urine protein creatinine ratio --considering her age and abnormal urinary finding, will workup for paraproteinemia, vasculitis -- agree with holding lisinopril, hydrochlorothiazide and avoiding all nephrotoxins medications -- check CPK and hold statin as well as any nonessential medication -- dose medications for GFR less than 10 --if renal function does not improve, will consider repeating imaging study to follow up on bilateral hydro --currently no acute indication for emergency dialysis however in next 24 hours if renal function does not improve, patient starts to have volume overload or any significant electrolyte abnormality, may need to consider dialysis -- discussed in detail with the patient and patient verbalized understanding -- if in fact it is ATN, it may take weeks to recover Thank you for allowing me to participate in your patient's care. It was a pleasure to see Carissa This chart was completed utilizing [employer] Speech and voice recognition software. Grammatical errors, random word insertions, pronoun errors and incomplete sentences are occasional consequences of this system. Any questions or concerns about the content, text or information contained within the body of this dictation should be addressed directly to the physician for clarification.
[2017-01-17 12:15] LABS: URINE PROTIEN/CREAT RATIO 1.6 (0-0.2)
[2017-01-17 14:00] LABS: C-REACTIVE PROTEIN 4.54 mg/dl (0-0.29)
--- NOTE | 2017-01-17 18:08 | Family Medicine Progress Note ---
Progress Note Date of Service Jan 17, 2017. Subjective Pt evaluation today including: conversation w/ patient, physical exam, lab review, review of studies, conversation w/ rewards consultant Pain: Denies Voiding: no voiding problems Patient was seen at the bedside. Patient states that she is feeling better than yesterday. Her appetite has improved. Tolerated food well. She had one BM this morning and it was very loose, no blood was noted. Complains of nausea but denies vomiting. Denies any abdominal pain, hematochezia, melena, dysuria, dizziness, or any other additional symptoms. Constitutional: + fatigue, + weakness, + weight loss, No fever Respiratory: No cough, No shortness of breath, No sputum Cardiovascular: No chest pain, No edema Abdomen: + diarrhea, + nausea, No GI bleeding, No constipation, No pain, No vomiting Musculoskeletal: No muscle pain Female : No dysuria Skin: No rash Medications Current Inpatient Medications Medications (Trade) Dose Ordered Sig/Vega Route Start Time Stop Time Status Last Admin Dose Admin Anastrozole (Arimidex Tab) 1 mg DAILY PO 01/17/17 09:00 02/16/17 08:59 01/17/17 09:10 1 MG Atorvastatin Calcium (Lipitor Tab) 5 mg DAILY PO 01/17/17 09:00 02/16/17 08:59 Future Hold 01/17/17 09:04 5 MG Levothyroxine Sodium (Synthroid Tab) 88 mcg DAILYBB PO 01/17/17 06:30 02/16/17 06:59 01/17/17 06:19 88 MCG Tramadol HCl (Ultram Tab) 50 mg Q4H PRN PO 01/17/17 01:30 02/16/17 01:29 Acetaminophen (Tylenol Tab) 650 mg Q4H PRN PO 01/17/17 01:30 02/16/17 01:29 Zolpidem Tartrate (Ambien Tab) 5 mg HSZ PRN PO 01/17/17 01:30 02/16/17 01:29 Nitroglycerin 0.4 mg 0.4 mg UD PRN SL 01/17/17 01:30 02/16/17 01:29 Ceftriaxone Sodium/Dextrose (Rocephin Inj/ Dextrose Add-Serena 50ML) 50 ml @ 100 mls/hr Q24H IV 01/17/17 04:00 01/27/17 03:59 01/17/17 03:37 100 MLS/HR Famotidine (Pepcid Tab) 20 mg BID PO 01/17/17 09:00 02/16/17 08:59 01/17/17 09:03 20 MG Ondansetron HCl (Zofran Inj) 4 mg Q6H PRN IV 01/17/17 01:45 02/16/17 01:44 Lactobacillus Acidophilus 4 tab 4 tab TIDM PO 01/17/17 08:00 02/16/17 07:59 01/17/17 17:09 4 TAB Sodium Bicarbonate/ Dextrose (Sodium Bicarbonate 8.4% Inj/D5W 1000ml) 1,150 ml @ 100 mls/hr [id number] IV 01/17/17 09:00 02/16/17 08:59 01/17/17 09:10 100 MLS/HR Objective Vital Signs Date Time Temp Pulse Resp B/P Pulse Ox O2 Delivery O2 Flow Rate FiO2 01/17/17 14:50 36.6 74 16 102/67 98 Room Air 01/17/17 12:00 Room Air 01/17/17 11:00 36.6 77 18 111/75 98 Room Air 01/17/17 08:00 98 Room Air 01/17/17 07:25 36.7 71 18 101/60 98 Room Air 01/17/17 03:50 36.4 85 18 134/84 100 Room Air 01/17/17 02:00 76 16 107/61 99 Room Air 01/17/17 01:04 75 01/17/17 01:00 76 16 113/77 99 Room Air 01/16/17 23:00 79 16 111/77 100 Room Air 01/16/17 21:31 79 01/16/17 21:30 76 20 99/65 100 Room Air 01/16/17 21:19 88 16 103/68 100 Room Air 01/16/17 21:19 98 Room Air 01/16/17 20:59 36.5 90 20 90/64 96 Room Air Physical Exam General Appearance: WD/WN, no apparent distress Neck: supple, trachea midline Respiratory/Chest: chest non-tender, lungs clear, normal breath sounds, no respiratory distress, no accessory muscle use Cardiovascular: regular rate, rhythm, no edema Abdomen: normal bowel sounds, non tender, soft Extremities: non-tender, no pedal edema Neurologic/Psychiatric: alert, normal mood/affect, oriented x 3 Skin: normal color, warm/dry, no rash Laboratory Results Results Past 24 Hours Test 01/16/17 21:13 01/16/17 23:00 01/17/17 00:00 01/17/17 09:05 Range/Units White Blood Count 14.45 4.8-10.8 K/uL Red Blood Count 3.82 4.2-5.4 M/uL Hemoglobin 11.2 12.0-16.0 g/dL Hematocrit 33.1 37-47 % Mean Corpuscular Volume 86.6 80-100 fL Mean Corpuscular Hemoglobin 29.3 25-34 pg Mean Corpuscular Hemoglobin Concent 33.8 32-36 g/dl Platelet Count 588 130-400 K/uL Mean Platelet Volume 8.3 7.4-10.4 fL RDW Standard Deviation 40.3 36.4-46.3 fL RDW Coefficient of Variation 12.6 11.5-14.5 % Neutrophils % (Manual) 80.1 % Lymphocytes % (Manual) 11.3 % Monocytes % (Manual) 4.3 % Eosinophils % (Manual) 1.7 % Basophils % (Manual) 0.9 % Myelocytes % 1.7 % Neutrophils # (Manual) 11.57 1.4-6.5 K/uL Total Absolute Neutrophils 11.57 1.4-6.5 K/uL Lymphocytes # (Manual) 1.63 1.2-3.4 K/uL Total Absolute Lymphocytes 1.63 1.2-3.4 K/uL Monocytes # (Manual) 0.62 0.11-0.59 K/uL Eosinophils # (Manual) 0.25 0-0.5 K/uL Basophils # (Manual) 0.13 0-0.2 K/uL Myelocytes # 0.25 0-0 K/uL Red Blood Cell Morphology Unremarkable Prothrombin Time 12.4 9.0-12.0 SECONDS Prothromb Time International Ratio 1.2 0.9-1.1 Activated Partial Thromboplast Time 33.2 21.0-31.0 SECONDS Partial Thromboplastin Ratio 1.3 Sodium Level 135 136-145 mmol/L Potassium Level 3.8 3.5-5.1 mmol/L Chloride Level 101 98-107 mmol/L Carbon Dioxide Level 18 21-32 mmol/L Anion Gap 16.0 3-11 mmol/L Blood Urea Nitrogen 88 7-18 mg/dl Creatinine 9.20 0.60-1.20 mg/dl Est Creatinine Clear Calc Drug Dose 4.6 ml/min Estimated GFR () 4.5 Estimated GFR (Non- 3.8 BUN/Creatinine Ratio 9.6 10-20 Random Glucose 107 70-99 mg/dl Calcium Level 9.1 8.5-10.1 mg/dl Magnesium Level 1.4 1.8-2.4 mg/dl Total Bilirubin 0.3 0.2-1 mg/dl Direct Bilirubin 0.1 0-0.2 mg/dl Aspartate Amino Transf (AST/SGOT) 6 15-37 U/L Alanine Aminotransferase (ALT/SGPT) 13 12-78 U/L Alkaline Phosphatase 78 45-117 U/L Total Protein 9.2 6.4-8.2 gm/dl Albumin 3.4 3.4-5.0 gm/dl Lipase 338 73-393 U/L Thyroid Stimulating Hormone (TSH) 1.830 0.300-4.500 uIu/ml Urine Color YELLOW Urine Appearance CLEAR CLEAR Urine pH 6.0 4.5-7.5 Urine Specific [place] 1.008 1.000-1.030 Urine Protein 1+ NEG Urine Glucose (UA) NEG NEG Urine Ketones NEG NEG Urine Occult Blood TRACE NEG Urine Nitrite NEG NEG Urine Bilirubin NEG NEG Urine Urobilinogen NEG NEG Urine Leukocyte Esterase LARGE NEG Urine WBC (Auto) >30 0-5 /hpf Urine RBC (Auto) 0-4 0-4 /hpf Urine Hyaline Casts (Auto) 1-5 0-5 /lpf Urine Epithelial Cells (Auto) 10-20 0-5 /lpf Urine Bacteria (Auto) NEG NEG Urine Random Creatinine 19.0 mg/dl Urine Random Total Protein 31.0 0-11.9 mg/dl Urine Random Sodium 86 mEq/L Urine Protein/Creatinine Ratio 1.6 0-0.2 Phosphorus Level 6.9 2.5-4.9 mg/dl Total Creatine Kinase 36 26-192 U/L Test 01/17/17 13:08 Range/Units Erythrocyte Sedimentation Rate 74 0-21 mm/hr Iron Level 49 35-150 mcg/dl Total Iron Binding Capacity 193 250-450 mcg/dl Transferrin 163 200-360 mg/dl Transferrin % Saturation 21 15-50 % Ferritin 600.0 8.0-388.0 ng/ml C-Reactive Protein 4.54 0-0.29 mg/dl Parathyroid Hormone (Intact) 159.3 11.1-79.5 pg/mL Microbiology Results 01/16/17 Urine Culture, Received Pending Assessment and Plan This is a 71 y/o female with PMHx of HTN, hypothyroidism, breast cancer, pancreatitis (about 2 years), and HLD admitted to the hospital because of acute kidney injury. Patient has loss of appetite, nausea and feeling weak [id number]. Also complains of non-bloody diarrhea X5days. In ED her Cr 9.2 and BUN 88. UA showed 1+ proteinuria, pyuria, and microscopic hematuria. * Acute Kidney Injury - The etiology is unclear. Could be 2/2 prerenal azotemia vs ATN. Given the history - dehydration would be a contributing factor for the EB. - Patient denies any hx of kidney disease - CT w/out contrast showed slight dilatation of both collecting systems without em hydronephrosis. No urinary calculi. - Will continue with IV D5+bicarb @ 100mls/hr - Hold HCTZ, lisinopril and statin for now - Nephrology was consulted and Dr. Fragoso saw the patient. Will continue to appreciate her recommendations. - Urine protein/creatinine ratio is elevated (1.6), Urine protein is elevated (31), urine Na+ and Cr are normal. Other urine studies are pending. - Vasculitis workups given age and abnormal urinary findings - pending. - Nephrology recommendations: 1. If symptoms don't improve, repeat imaging to follow up on b/l hydronephrosis 2. No plan for dialysis at this moment. However if next 24hrs symptoms don't improve, have volume overload, or significant electrolytes abnormalities might consider dialysis 3. Dose medications for GFR <10 * Diarrhea - She had one episode this morning and it's small amount, no blood - Continue with hydration (D5+bicarb 100mls/hr) - C/w probiotic - F/u on BMP tomorrow am - C diff negative. * Possible UTI - UA finding indicated possible of UTI - C/w IV Ceftriaxone - UCx - pending * Hypomagnesium - Received IV 1g Mg - F/u tomorrow lab * Chronic Conditions HTN: Will hold HCTZ and lisinopril for now HLD: Will hold statin for now Hypothyroidism: c/w Synthroid 88 g daily Breast CA: C/w anastrozole 1mg daily *DVT prophylaxis - SCDs *Code Status - Full code Resident Tracking Resident Involvement: Resident Care Provided Care Provided: Adult [facility] Medicine Reviewed: Pt Seen/Exam by Me History no concerns today. Constitutional: denies: fever Respiratory: negative: short of breath Cardiovascular: denies chest pain Gastrointestinal/Abdominal: negative: abdominal pain General Appearance: no apparent distress Respiratory: lungs clear, no respiratory distress Cardiovascular: regular rate, rhythm Gastrointestinal: normal bowel sounds, non tender, soft, other (no CVA tenderness) Neurologic/Psychiatric: alert, oriented x 3 Skin Characteristics: warm/dry Assessment/Plan I have reviewed the medical record and performed a history and physical examination of this patient today. I have discussed the case with Chuck. The above note reflects my findings, conclusions, and recommendations.
[2017-01-18] VITALS (9 sets, daily range): BP systolic 99–124; BP diastolic 65–85; PULSE 69–75; TEMP 36–36.8; O2SAT 96–99
[2017-01-18] MEDS: CEFTRIAXONE SOD INJ 1 GM in DEXTROSE 5% ADD-VANTAGE 50ML 50 ML IV SCH (03:59)
[2017-01-18] MEDS: LEVOTHYROXINE 88 MCG TAB PO SCH (06:25)
[2017-01-18 07:11] LABS: BASO % 0.7 %; BASO ABS # 0.06 K/uL (0-0.2); COMPLETE YES; EOS % 2.6 %; HEMATOCRIT 29.5 % (37-47); IG% 0.7 %; LYMPH % 12.5 %; LYMPH ABS # 1.07 K/uL (1.2-3.4); MEAN CELL VOLUME 85.5 fL (80-100); MEAN CORPUSCULAR HGB CONC 33.9 g/dl (32-36); MEAN PLATELET VOLUME 8.4 fL (7.4-10.4); MONO % 9.8 %; NEUT % 73.7 %; PLATELET COUNT 467 K/uL (130-400); RED BLOOD COUNT 3.45 M/uL (4.2-5.4); WHITE BLOOD COUNT 8.54 K/uL (4.8-10.8)
[2017-01-18 07:20] LABS: INR 1.2 (0.9-1.1); PARTIAL THROMBOPLASTIN RATIO 1.2; PROTHROMBIN TIME (PATIENT) 12.6 SECONDS (9.0-12.0)
[2017-01-18] MEDS: SODIUM BICARBONATE 8.4% INJ 150 MEQ in DEXTROSE 5% 1000ML 1,000 ML IV SCH (07:48)
[2017-01-18] MEDS: FAMOTIDINE 20 MG TAB PO SCH ×2 (07:48→21:08)
[2017-01-18] MEDS: ANASTROZOLE 1 MG TAB PO SCH (07:49)
[2017-01-18] MEDS: LACTOBACILLUS ACIDOPHILUS (FLORANEX) TAB PO SCH ×3 (07:49→16:51)
[2017-01-18 07:54] LABS: BUN/CREATININE RATIO 9.4 (10-20); CALCIUM 7.9 mg/dl (8.5-10.1); CREATININE 6.7 mg/dl (0.60-1.20); MAGNESIUM 1.5 mg/dl (1.8-2.4); PHOSPHORUS 5.9 mg/dl (2.5-4.9); POTASSIUM 2.7 mmol/L (3.5-5.1)
[2017-01-18] MEDS ORDERED: POTASSIUM CHLORIDE 10 MEQ TABCR PO STA (08:18)
[2017-01-18] MEDS ORDERED: POTASSIUM CHLORIDE 10 MEQ TABCR PO ONE (09:00)
[2017-01-18] MEDS ORDERED: MAGNESIUM SULFATE 1GM / D5W 1 GM in PREMIXED IN D5W 100 ML IV STA (10:34)
--- NOTE | 2017-01-18 10:37 | Family Medicine Progress Note ---
Progress Note Date of Service Jan 18, 2017. Subjective Pt evaluation today including: conversation w/ patient, physical exam, lab review, review of studies, conversation w/ hr consultant Voiding: no voiding problems Patient was seen at the bedside. She states that her appetite is better and diarrhea has resolved. She was very anxious last night and couldn't sleep because she was worrying about her lab works. She complains of intermittent muscle pain on the left upper back, which is most likely musculoskeletal. Denies any other complaints. Per nurse her appetite has improved. Constitutional: + weight loss, No fever Respiratory: No cough, No shortness of breath Cardiovascular: No chest pain, No edema Abdomen: + nausea, No constipation, No diarrhea, No pain, No vomiting Musculoskeletal: No joint pain Female : No dysuria Skin: No rash Medications Current Inpatient Medications Medications (Trade) Dose Ordered Sig/Vega Route Start Time Stop Time Status Last Admin Dose Admin Anastrozole (Arimidex Tab) 1 mg DAILY PO 01/17/17 09:00 02/16/17 08:59 01/18/17 07:49 1 MG Atorvastatin Calcium (Lipitor Tab) 5 mg DAILY PO 01/17/17 09:00 02/16/17 08:59 Future Hold 01/17/17 09:04 5 MG Levothyroxine Sodium (Synthroid Tab) 88 mcg DAILYBB PO 01/17/17 06:30 02/16/17 06:59 01/18/17 06:25 88 MCG Tramadol HCl (Ultram Tab) 50 mg Q4H PRN PO 01/17/17 01:30 02/16/17 01:29 Acetaminophen (Tylenol Tab) 650 mg Q4H PRN PO 01/17/17 01:30 02/16/17 01:29 Zolpidem Tartrate (Ambien Tab) 5 mg HSZ PRN PO 01/17/17 01:30 02/16/17 01:29 01/18/17 01:49 5 MG Nitroglycerin 0.4 mg 0.4 mg UD PRN SL 01/17/17 01:30 02/16/17 01:29 Ceftriaxone Sodium/Dextrose (Rocephin Inj/ Dextrose Add-[employer] 50ML) 50 ml @ 100 mls/hr Q24H IV 01/17/17 04:00 01/27/17 03:59 01/18/17 03:59 100 MLS/HR Famotidine (Pepcid Tab) 20 mg BID PO 01/17/17 09:00 02/16/17 08:59 01/18/17 07:48 20 MG Ondansetron HCl (Zofran Inj) 4 mg Q6H PRN IV 01/17/17 01:45 02/16/17 01:44 Lactobacillus Acidophilus (Floranex Tab) 4 tab TIDM PO 01/17/17 08:00 02/16/17 07:59 01/18/17 07:49 4 TAB Potassium Chloride (Klor-Con M10) 40 meq TODAY@1200 PO 01/18/17 12:00 01/18/17 12:01 Objective Vital Signs Date Time Temp Pulse Resp B/P Pulse Ox O2 Delivery O2 Flow Rate FiO2 01/18/17 08:00 98 Room Air 01/18/17 07:14 36.3 69 18 112/72 98 Room Air 01/18/17 04:25 36.8 75 18 124/85 98 Room Air 01/18/17 04:00 Room Air 01/18/17 04:00 Room Air 01/18/17 00:01 Room Air 01/17/17 23:09 36.7 79 16 112/67 94 Room Air 01/17/17 20:00 98 Room Air 01/17/17 19:13 36.6 83 16 96/67 93 Room Air 01/17/17 16:00 98 Room Air 01/17/17 14:50 36.6 74 16 102/67 98 Room Air 01/17/17 12:00 Room Air 01/17/17 11:00 36.6 77 18 111/75 98 Room Air Physical Exam General Appearance: WD/WN, no apparent distress Neck: supple, trachea midline Respiratory/Chest: chest non-tender, normal breath sounds, no respiratory distress, no accessory muscle use Cardiovascular: regular rate, rhythm, no edema Abdomen: normal bowel sounds, non tender, soft Extremities: non-tender, no pedal edema Neurologic/Psychiatric: alert, normal mood/affect, oriented x 3 Skin: normal color, warm/dry, no rash Laboratory Results Results Past 24 Hours Test 01/17/17 13:08 01/18/17 06:45 01/18/17 06:48 Range/Units Erythrocyte Sedimentation Rate 74 0-21 mm/hr Iron Level 49 35-150 mcg/dl Total Iron Binding Capacity 193 250-450 mcg/dl Transferrin 163 200-360 mg/dl Transferrin % Saturation 21 15-50 % Ferritin 600.0 8.0-388.0 ng/ml C-Reactive Protein 4.54 0-0.29 mg/dl Parathyroid Hormone (Intact) 159.3 11.1-79.5 pg/mL White Blood Count 8.54 4.8-10.8 K/uL Red Blood Count 3.45 4.2-5.4 M/uL Hemoglobin 10.0 12.0-16.0 g/dL Hematocrit 29.5 37-47 % Mean Corpuscular Volume 85.5 80-100 fL Mean Corpuscular Hemoglobin 29.0 25-34 pg Mean Corpuscular Hemoglobin Concent 33.9 32-36 g/dl Platelet Count 467 130-400 K/uL Mean Platelet Volume 8.4 7.4-10.4 fL Neutrophils (%) (Auto) 73.7 % Lymphocytes (%) (Auto) 12.5 % Monocytes (%) (Auto) 9.8 % Eosinophils (%) (Auto) 2.6 % Basophils (%) (Auto) 0.7 % Neutrophils # (Auto) 6.29 1.4-6.5 K/uL Lymphocytes # (Auto) 1.07 1.2-3.4 K/uL Monocytes # (Auto) 0.84 0.11-0.59 K/uL Eosinophils # (Auto) 0.22 0-0.5 K/uL Basophils # (Auto) 0.06 0-0.2 K/uL RDW Standard Deviation 39.0 36.4-46.3 fL RDW Coefficient of Variation 12.6 11.5-14.5 % Immature Granulocyte % (Auto) 0.7 % Immature Granulocyte # (Auto) 0.06 0.00-0.02 K/uL Sodium Level 141 136-145 mmol/L Potassium Level 2.7 3.5-5.1 mmol/L Chloride Level 101 98-107 mmol/L Carbon Dioxide Level 27 21-32 mmol/L Anion Gap 13.0 3-11 mmol/L Blood Urea Nitrogen 63 7-18 mg/dl Creatinine 6.70 0.60-1.20 mg/dl Est Creatinine Clear Calc Drug Dose 6.3 ml/min Estimated GFR () 6.5 Estimated GFR (Non- 5.6 BUN/Creatinine Ratio 9.4 10-20 Random Glucose 108 70-99 mg/dl Calcium Level 7.9 8.5-10.1 mg/dl Phosphorus Level 5.9 2.5-4.9 mg/dl Magnesium Level 1.5 1.8-2.4 mg/dl Prothrombin Time 12.6 9.0-12.0 SECONDS Prothromb Time International Ratio 1.2 0.9-1.1 Activated Partial Thromboplast Time 31.1 21.0-31.0 SECONDS Partial Thromboplastin Ratio 1.2 Assessment and Plan This is a 71 y/o female with PMHx of HTN, hypothyroidism, breast cancer, pancreatitis (about 2 years), and HLD admitted to the hospital because of acute kidney injury. Patient has loss of appetite, nausea and feeling weak [id number]. Also complains of non-bloody diarrhea X5days prior to admission. In ED her Cr 9.2 and BUN 88. UA showed 1+ proteinuria, pyuria, and microscopic hematuria. * Acute Kidney Injury - The etiology is unclear. Could be 2/2 prerenal azotemia vs ATN. Given the history diarrhea and loss of appetite, dehydration would be a contributing factor for the EB. - Creatine improved (6.7), D/genet IVF per Nephrology - Patient denies any hx of kidney disease - CT w/out contrast showed slight dilatation of both collecting systems without em hydronephrosis. No urinary calculi. - Continue to hold HCTZ, lisinopril and statin for now - Nephrology was consulted and Dr. Fragoso saw the patient. Will continue to appreciate her recommendations. - Urine protein/creatinine ratio is elevated (1.6), Urine protein is elevated (31), urine Na+ and Cr are normal. Other urine studies are pending. - PTH is elevated (159), order Vit D - Vasculitis workups given age and abnormal urinary findings - pending. - Nephrology recommendations: 1. If symptoms don't improve, repeat imaging to follow up on b/l hydronephrosis 2. No plan for dialysis at this moment. However if next 24hrs symptoms don't improve, have volume overload, or significant electrolytes abnormalities might consider dialysis 3. Dose medications for GFR <10 * Diarrhea - d/genet IVF given patient PO intake improved - no recurrent loose stools since admission - C/w probiotic * Possible UTI - UA finding indicated possible of UTI - C/w IV Ceftriaxone (Day#2) - UCx - more than 3 types of organisms were present, most likely contaminated. * Electrolytes abnormalities - Hypomagnesium: Given IV 2g Mg, follow up on Mg level tomorrow - Low potassium: Given 2 doses of 40mg KCL, follow up with BMP * Chronic Conditions HTN: Will hold HCTZ and lisinopril for now HLD: Will hold statin for now Hypothyroidism: c/w Synthroid 88 g daily Breast CA: C/w anastrozole 1mg daily *DVT prophylaxis - SCDs *Code Status - Full code Resident Tracking Resident Involvement: Resident Care Provided Care Provided: Adult Hospital Medicine Reviewed: Pt Seen/Exam by Me History feeling better Constitutional: denies: fever Respiratory: negative: short of breath Cardiovascular: denies chest pain Gastrointestinal/Abdominal: negative: abdominal pain General Appearance: no apparent distress Respiratory: lungs clear, no respiratory distress Cardiovascular: regular rate, rhythm Gastrointestinal: normal bowel sounds, non tender, soft Neurologic/Psychiatric: alert, oriented x 3 Skin Characteristics: warm/dry Assessment/Plan I have reviewed the medical record and performed a history and physical examination of this patient today. I have discussed the case with Chuck. The above note reflects my findings, conclusions, and recommendations.
--- NOTE | 2017-01-18 11:06 | Nephrology Progress Note ---
Nephrology Progress Note Date of Service Jan 18, 2017. Chief Complaint F/U for acute kidney injury and metabolic acidosis. Aydin Randolph was seen and examined in her room this morning. She is overall feeling better, nausea improved and appetite seems to be coming back. Denies any shortness of breath or chest pain. [place] a brief period of stomach upset this morning which currently resolved. Blood pressure has been stable. She has been non-oliguric. renal function improved to creatinine 6.7 this morning, has them hypokalemia with potassium of 2.7. Review of Systems A complete review of systems was performed. Pertinent positives are noted above. All other systems are negative. Vital Signs Last 8 Hrs Date Time Temp Pulse Resp B/P Pulse Ox O2 Delivery O2 Flow Rate FiO2 01/18/17 08:00 98 Room Air 01/18/17 07:14 36.3 69 18 112/72 98 Room Air 01/18/17 04:25 36.8 75 18 124/85 98 Room Air 01/18/17 04:00 Room Air 01/18/17 04:00 Room Air I & O 24-Hour Column 01/18/17 07:59 Intake Total 3701 ml Output Total 5400 ml Balance -1699 ml Last Recorded Weight Weight (Kilograms): 61.000 Physical Exam GENERAL: Elderly female, AAA x 3, pleasant, healthy-appearing, not in any distress. NECK: Supple, no JVD. RESPIRATORY: Normal breathing efforts, no accessory muscle use, clear to auscultation bilaterally, no wheezes or rales. CARDIOVASCULAR: S1, S2 normal, rate rhythm regular. EXTREMITY: No lower extremity edema NEURO: speech fluent. PSYCHIATRY: Normal mood and judgment Family History Cancer Social History Smokeless Tobacco Use: No Alcohol Use: none Drug Use: none Occupation: employed Laboratory Results Past 24 Hours 01/18/17 06:45 Red Blood Count 3.45, Mean Corpuscular Volume 85.5, Mean Corpuscular Hemoglobin 29.0, Mean Corpuscular Hemoglobin Concent 33.9, Mean Platelet Volume 8.4, Neutrophils (%) (Auto) 73.7, Lymphocytes (%) (Auto) 12.5, Monocytes (%) (Auto) 9.8, Eosinophils (%) (Auto) 2.6, Basophils (%) (Auto) 0.7, Neutrophils # (Auto) 6.29, Lymphocytes # (Auto) 1.07, Monocytes # (Auto) 0.84, Eosinophils # (Auto) 0.22, Basophils # (Auto) 0.06 01/18/17 06:45 Test 01/17/17 09:05 01/17/17 13:08 01/18/17 06:45 01/18/17 06:48 Phosphorus Level 6.9 mg/dl (2.5-4.9) 5.9 mg/dl (2.5-4.9) Total Creatine Kinase 36 U/L (26-192) Erythrocyte Sedimentation Rate 74 mm/hr (0-21) Iron Level 49 mcg/dl (35-150) Total Iron Binding Capacity 193 mcg/dl (250-450) Transferrin 163 mg/dl (200-360) Transferrin % Saturation 21 % (15-50) Ferritin 600.0 ng/ml (8.0-388.0) C-Reactive Protein 4.54 mg/dl (0-0.29) Parathyroid Hormone (Intact) 159.3 pg/mL (11.1-79.5) White Blood Count 8.54 K/uL (4.8-10.8) Red Blood Count 3.45 M/uL (4.2-5.4) Hemoglobin 10.0 g/dL (12.0-16.0) Hematocrit 29.5 % (37-47) Mean Corpuscular Volume 85.5 fL (80-100) Mean Corpuscular Hemoglobin 29.0 pg (25-34) Mean Corpuscular Hemoglobin Concent 33.9 g/dl (32-36) Platelet Count 467 K/uL (130-400) Mean Platelet Volume 8.4 fL (7.4-10.4) Neutrophils (%) (Auto) 73.7 % Lymphocytes (%) (Auto) 12.5 % Monocytes (%) (Auto) 9.8 % Eosinophils (%) (Auto) 2.6 % Basophils (%) (Auto) 0.7 % Neutrophils # (Auto) 6.29 K/uL (1.4-6.5) Lymphocytes # (Auto) 1.07 K/uL (1.2-3.4) Monocytes # (Auto) 0.84 K/uL (0.11-0.59) Eosinophils # (Auto) 0.22 K/uL (0-0.5) Basophils # (Auto) 0.06 K/uL (0-0.2) RDW Standard Deviation 39.0 fL (36.4-46.3) RDW Coefficient of Variation 12.6 % (11.5-14.5) Immature Granulocyte % (Auto) 0.7 % Immature Granulocyte # (Auto) 0.06 K/uL (0.00-0.02) Anion Gap 13.0 mmol/L (3-11) Est Creatinine Clear Calc Drug Dose 6.3 ml/min Estimated GFR () 6.5 Estimated GFR (Non- 5.6 BUN/Creatinine Ratio 9.4 (10-20) Calcium Level 7.9 mg/dl (8.5-10.1) Magnesium Level 1.5 mg/dl (1.8-2.4) Prothrombin Time 12.6 SECONDS (9.0-12.0) Prothromb Time International Ratio 1.2 (0.9-1.1) Activated Partial Thromboplast Time 31.1 SECONDS (21.0-31.0) Partial Thromboplastin Ratio 1.2 Allergies Coded Allergies: Exemestane (Verified Allergy, Intermediate, HIVES, 01/16/17) Medications Current Inpatient Medications Medications (Trade) Dose Ordered Sig/Vega Route Start Time Stop Time Status Last Admin Dose Admin Anastrozole (Arimidex Tab) 1 mg DAILY PO 01/17/17 09:00 02/16/17 08:59 01/18/17 07:49 1 MG Atorvastatin Calcium (Lipitor Tab) 5 mg DAILY PO 01/17/17 09:00 02/16/17 08:59 Future Hold 01/17/17 09:04 5 MG Levothyroxine Sodium (Synthroid Tab) 88 mcg DAILYBB PO 01/17/17 06:30 02/16/17 06:59 01/18/17 06:25 88 MCG Tramadol HCl (Ultram Tab) 50 mg Q4H PRN PO 01/17/17 01:30 02/16/17 01:29 Acetaminophen (Tylenol Tab) 650 mg Q4H PRN PO 01/17/17 01:30 02/16/17 01:29 Zolpidem Tartrate (Ambien Tab) 5 mg HSZ PRN PO 01/17/17 01:30 02/16/17 01:29 01/18/17 01:49 5 MG Nitroglycerin 0.4 mg 0.4 mg UD PRN SL 01/17/17 01:30 02/16/17 01:29 Ceftriaxone Sodium/Dextrose (Rocephin Inj/ Dextrose Add-[place] 50ML) 50 ml @ 100 mls/hr Q24H IV 01/17/17 04:00 01/27/17 03:59 01/18/17 03:59 100 MLS/HR Famotidine (Pepcid Tab) 20 mg BID PO 01/17/17 09:00 02/16/17 08:59 01/18/17 07:48 20 MG Ondansetron HCl (Zofran Inj) 4 mg Q6H PRN IV 01/17/17 01:45 02/16/17 01:44 Lactobacillus Acidophilus (Floranex Tab) 4 tab TIDM PO 01/17/17 08:00 02/16/17 07:59 01/18/17 07:49 4 TAB Potassium Chloride (Klor-Con M10) 40 meq NOW ONCE PO 01/18/17 09:00 01/18/17 09:01 Potassium Chloride (Klor-Con M10) 40 meq TODAY@1200 PO 01/18/17 12:00 01/18/17 12:01 Impression (1) Acute kidney injury (2) Metabolic acidosis, increased anion gap (3) Anemia (4) HTN (hypertension) (5) Hypomagnesemia Carissa is a 71-year-old female with no prior history of chronic kidney disease admitted with them 2 weeks history of anorexia, nausea, weight loss, feeling poorly and 5 days history of loose watery diarrhea. He she has been hypotensive and lightheaded prior to coming to the hospital and has been taking lisinopril and hydrochlorothiazide with ongoing diarrhea and poor p.o. intake. no NSAID use, no symptom suggestive of systemic vasculitis. Urinalysis was positive for low grade proteinuria, microscopic hematuria and pyuria. CT abdomen pelvis concerning for bilateral mild hydronephrosis without any nephrolithiasis or evidence of retroperitoneal fibrosis however, CT was done without contrast considering acute kidney injury. she received almost 4 liters of IV fluid since admission and blood pressure now slightly better and overall she is feeling a be eat better. Unclear etiology for acute kidney injury at this point however, differentials include prerenal versus ATN, cannot exclude possibility for intrinsic renal disease or some form of vasculitis. Unclear whether bilateral mild hydronephrosis is having any impact on her acute kidney injury. No retroperitoneal lymphadenopathy identified however with her history of breast cancer that would be always a concern. Recommendations --discontinue IV fluid, continue to monitor intake and output closely, as patient may be getting into post ATN diuresis phase, advised her to drink plenty of liquids. If she is significantly net negative over night, may need to restart her on some IV fluid -- Continue to hold lisinopril, hydrochlorothiazide and avoiding all nephrotoxins medications -- dose medications for GFR less than 10 -- expect renal function to continue to improve, however, ATN may take weeks to recover Will follow. This chart was completed utilizing [employer] Speech and voice recognition software. Grammatical errors, random word insertions, pronoun errors and incomplete sentences are occasional consequences of this system. Any questions or concerns about the content, text or information contained within the body of this dictation should be addressed directly to the physician for clarification.
[2017-01-18] MEDS ORDERED: POTASSIUM CHLORIDE 10 MEQ TABCR PO SCH (12:00)
[2017-01-18 14:08] LABS: BUN/CREATININE RATIO 10.3 (10-20); CALCIUM 8.4 mg/dl (8.5-10.1); CREATININE 6.3 mg/dl (0.60-1.20); PHOSPHORUS 4.5 mg/dl (2.5-4.9); POTASSIUM 3.3 mmol/L (3.5-5.1)
[2017-01-19] MEDS: CEFTRIAXONE SOD INJ 1 GM in DEXTROSE 5% ADD-VANTAGE 50ML 50 ML IV SCH (03:58)
[2017-01-19 04:09] VITALS: BP 99/63; PULSE 74; TEMP 36.6; O2SAT 96
[2017-01-19] MEDS: LEVOTHYROXINE 88 MCG TAB PO SCH (05:37)
[2017-01-19 06:21] LABS: INR 1.1 (0.9-1.1); PARTIAL THROMBOPLASTIN RATIO 1.3; PROTHROMBIN TIME (PATIENT) 12.1 SECONDS (9.0-12.0)
[2017-01-19 07:01] LABS: BUN/CREATININE RATIO 10.4 (10-20); CALCIUM 8.8 mg/dl (8.5-10.1); CREATININE 5.4 mg/dl (0.60-1.20); MAGNESIUM 1.8 mg/dl (1.8-2.4); POTASSIUM 3.2 mmol/L (3.5-5.1)
[2017-01-19 07:29] LABS: BASO % 0.5 %; BASO ABS # 0.04 K/uL (0-0.2); COMPLETE YES; EOS % 3.3 %; HEMATOCRIT 32.1 % (37-47); IG% 0.5 %; LYMPH % 13.3 %; LYMPH ABS # 1.16 K/uL (1.2-3.4); MEAN CELL VOLUME 86.3 fL (80-100); MEAN CORPUSCULAR HEMOGLOBIN 29.3 pg (25-34); MEAN PLATELET VOLUME 8.7 fL (7.4-10.4); MONO % 10.2 %; NEUT % 72.2 %; PLATELET COUNT 500 K/uL (130-400); RED BLOOD COUNT 3.72 M/uL (4.2-5.4); WHITE BLOOD COUNT 8.71 K/uL (4.8-10.8)
[2017-01-19 07:32] VITALS: BP 98/66; PULSE 75; TEMP 36.4; O2SAT 97
[2017-01-19] MEDS ORDERED: POTASSIUM CHLORIDE 10 MEQ TABCR PO ONE (07:45)
[2017-01-19] MEDS ORDERED: POTASSIUM CHLORIDE 20 MEQ TABCR PO ONE (08:15)
[2017-01-19] MEDS: LACTOBACILLUS ACIDOPHILUS (FLORANEX) TAB PO SCH ×3 (09:22→17:00)
[2017-01-19] MEDS: FAMOTIDINE 20 MG TAB PO SCH ×2 (09:23→20:42)
[2017-01-19] MEDS: ANASTROZOLE 1 MG TAB PO SCH (09:27)
[2017-01-19 11:32] VITALS: BP 99/70; PULSE 68; TEMP 36.4; O2SAT 98
--- NOTE | 2017-01-19 11:43 | Nephrology Progress Note ---
Nephrology Progress Note Date of Service Jan 19, 2017. Chief Complaint F/U for acute kidney injury and metabolic acidosis. Aydin Randolph was seen examined in her room this morning. She was having some nausea, abdominal discomforted change in bowel movement this morning. denies any shortness of breath. No episode of fever or chills, vomiting. Continues to have decent urine output with high urine volume and she is trying to increase fluid intake to keep up with the urine output. blood pressure has been soft but stable. Renal function continues to improve, creatinine 5.4 this morning, other electrolyte improved, potassium still low at 3.2. Review of Systems A complete review of systems was performed. Pertinent positives are noted above. All other systems are negative. Vital Signs Last 8 Hrs Date Time Temp Pulse Resp B/P Pulse Ox O2 Delivery O2 Flow Rate FiO2 01/19/17 11:32 36.4 68 18 99/70 98 Room Air 01/19/17 08:00 Room Air 01/19/17 07:32 36.4 75 18 98/66 97 Room Air 01/19/17 04:09 36.6 74 16 99/63 96 Room Air 01/19/17 04:00 Room Air I & O 24-Hour Column 01/19/17 08:00 Intake Total 3245 ml Output Total 3325 ml Balance -80 ml Last Recorded Weight Weight (Kilograms): 59.600 Physical Exam GENERAL: Elderly female, AAA x 3, pleasant, healthy-appearing, not in any distress. NECK: Supple, no JVD. RESPIRATORY: Normal breathing efforts, no accessory muscle use, clear to auscultation bilaterally, no wheezes or rales. CARDIOVASCULAR: S1, S2 normal, rate rhythm regular. EXTREMITY: No lower extremity edema NEURO: speech fluent. PSYCHIATRY: Normal mood and judgment Family History Cancer Social History Smokeless Tobacco Use: No Alcohol Use: none Drug Use: none Occupation: employed Laboratory Results Past 24 Hours 01/19/17 05:55 Red Blood Count 3.72, Mean Corpuscular Volume 86.3, Mean Corpuscular Hemoglobin 29.3, Mean Corpuscular Hemoglobin Concent 34.0, Mean Platelet Volume 8.7, Neutrophils (%) (Auto) 72.2, Lymphocytes (%) (Auto) 13.3, Monocytes (%) (Auto) 10.2, Eosinophils (%) (Auto) 3.3, Basophils (%) (Auto) 0.5, Neutrophils # (Auto ) 6.29, Lymphocytes # (Auto) 1.16, Monocytes # (Auto) 0.89, Eosinophils # (Auto ) 0.29, Basophils # (Auto) 0.04 01/18/17 13:23 01/18/17 15:25 01/19/17 05:55 Test 01/18/17 13:23 01/19/17 05:55 Anion Gap 15.0 mmol/L (3-11) 13.0 mmol/L (3-11) Est Creatinine Clear Calc Drug Dose 6.7 ml/min 7.8 ml/min Estimated GFR () 7.0 8.5 Estimated GFR (Non- 6.1 7.3 BUN/Creatinine Ratio 10.3 (10-20) 10.4 (10-20) Calcium Level 8.4 mg/dl (8.5-10.1) 8.8 mg/dl (8.5-10.1) Phosphorus Level 4.5 mg/dl (2.5-4.9) Albumin 3.2 gm/dl (3.4-5.0) White Blood Count 8.71 K/uL (4.8-10.8) Red Blood Count 3.72 M/uL (4.2-5.4) Hemoglobin 10.9 g/dL (12.0-16.0) Hematocrit 32.1 % (37-47) Mean Corpuscular Volume 86.3 fL (80-100) Mean Corpuscular Hemoglobin 29.3 pg (25-34) Mean Corpuscular Hemoglobin Concent 34.0 g/dl (32-36) Platelet Count 500 K/uL (130-400) Mean Platelet Volume 8.7 fL (7.4-10.4) Neutrophils (%) (Auto) 72.2 % Lymphocytes (%) (Auto) 13.3 % Monocytes (%) (Auto) 10.2 % Eosinophils (%) (Auto) 3.3 % Basophils (%) (Auto) 0.5 % Neutrophils # (Auto) 6.29 K/uL (1.4-6.5) Lymphocytes # (Auto) 1.16 K/uL (1.2-3.4) Monocytes # (Auto) 0.89 K/uL (0.11-0.59) Eosinophils # (Auto) 0.29 K/uL (0-0.5) Basophils # (Auto) 0.04 K/uL (0-0.2) RDW Standard Deviation 39.8 fL (36.4-46.3) RDW Coefficient of Variation 12.6 % (11.5-14.5) Immature Granulocyte % (Auto) 0.5 % Immature Granulocyte # (Auto) 0.04 K/uL (0.00-0.02) Prothrombin Time 12.1 SECONDS (9.0-12.0) Prothromb Time International Ratio 1.1 (0.9-1.1) Activated Partial Thromboplast Time 33.4 SECONDS (21.0-31.0) Partial Thromboplastin Ratio 1.3 Magnesium Level 1.8 mg/dl (1.8-2.4) 25-Hydroxy Vitamin D Total 42.6 ng/ml (30-100) Date/Time Source Procedure Growth Status 01/18/17 16:53 Stool C.difficile Toxin B Gene (PCR) - Final No C. difficile toxin B gene detected Complete Allergies Coded Allergies: Exemestane (Verified Allergy, Intermediate, HIVES, 01/16/17) Medications Current Inpatient Medications Medications (Trade) Dose Ordered Sig/Vega Route Start Time Stop Time Status Last Admin Dose Admin Anastrozole (Arimidex Tab) 1 mg DAILY PO 01/17/17 09:00 02/16/17 08:59 01/19/17 09:27 1 MG Atorvastatin Calcium (Lipitor Tab) 5 mg DAILY PO 01/17/17 09:00 02/16/17 08:59 Future Hold 01/17/17 09:04 5 MG Levothyroxine Sodium (Synthroid Tab) 88 mcg DAILYBB PO 01/17/17 06:30 02/16/17 06:59 01/19/17 05:37 88 MCG Tramadol HCl (Ultram Tab) 50 mg Q4H PRN PO 01/17/17 01:30 02/16/17 01:29 Acetaminophen (Tylenol Tab) 650 mg Q4H PRN PO 01/17/17 01:30 02/16/17 01:29 Zolpidem Tartrate (Ambien Tab) 5 mg HSZ PRN PO 01/17/17 01:30 02/16/17 01:29 01/18/17 01:49 5 MG Nitroglycerin 0.4 mg 0.4 mg UD PRN SL 01/17/17 01:30 02/16/17 01:29 Ceftriaxone Sodium/Dextrose (Rocephin Inj/ Dextrose Add-[place] 50ML) 50 ml @ 100 mls/hr Q24H IV 01/17/17 04:00 01/19/17 23:59 01/19/17 03:58 100 MLS/HR Famotidine (Pepcid Tab) 20 mg BID PO 01/17/17 09:00 02/16/17 08:59 01/19/17 09:23 20 MG Ondansetron HCl (Zofran Inj) 4 mg Q6H PRN IV 01/17/17 01:45 02/16/17 01:44 Lactobacillus Acidophilus (Floranex Tab) 4 tab TIDM PO 01/17/17 08:00 02/16/17 07:59 01/19/17 09:22 4 TAB Impression (1) Acute kidney injury (2) Metabolic acidosis, increased anion gap (3) Anemia (4) HTN (hypertension) (5) Hypomagnesemia Carissa is a 71-year-old female with no prior history of chronic kidney disease admitted with them 2 weeks history of anorexia, nausea, weight loss, feeling poorly and 5 days history of loose watery diarrhea. He she has been hypotensive and lightheaded prior to coming to the hospital and has been taking lisinopril and hydrochlorothiazide with ongoing diarrhea and poor p.o. intake. no NSAID use, no symptom suggestive of systemic vasculitis. Urinalysis was positive for low grade proteinuria, microscopic hematuria and pyuria. CT abdomen pelvis concerning for bilateral mild hydronephrosis without any nephrolithiasis or evidence of retroperitoneal fibrosis however, CT was done without contrast considering acute kidney injury. she received almost 4 liters of IV fluid since admission and blood pressure now slightly better and overall she is feeling a be eat better. Unclear etiology for acute kidney injury at this point however, differentials include prerenal versus ATN, cannot exclude possibility for intrinsic renal disease or some form of vasculitis. Unclear whether bilateral mild hydronephrosis is having any impact on her acute kidney injury. No retroperitoneal lymphadenopathy identified however with her history of breast cancer that would be always a concern. Recommendations --continue to monitor intake and output closely, as patient may be getting into post ATN diuresis phase, advised her to continue to drink plenty of liquids. will monitor for now, hold off on IV fluid as patient is able to drink enough --had GI symptoms again could be due to antibiotic but will order stool test as per patient request with recent history of travel -- Continue to hold lisinopril, hydrochlorothiazide and avoiding all nephrotoxins medications -- dose medications for GFR less than 10 -- expect renal function to continue to improve, however, ATN may take weeks to recover Will follow. This chart was completed utilizing [employer] Speech and voice recognition software. Grammatical errors, random word insertions, pronoun errors and incomplete sentences are occasional consequences of this system. Any questions or concerns about the content, text or information contained within the body of this dictation should be addressed directly to the physician for clarification.
[2017-01-19 15:05] VITALS: BP 92/62; PULSE 77; TEMP 36.4; O2SAT 96
--- NOTE | 2017-01-19 15:43 | Family Medicine Progress Note ---
Progress Note Date of Service Jan 19, 2017. Subjective Pt evaluation today including: conversation w/ patient, physical exam, lab review, review of studies Voiding: no voiding problems Patient was seen at the bedside. Patient states that she is still having diarrhea but it's not as loose like before. Also complains of nausea but don't want to take medicine. Denies any abdominal pain or vomiting. Her appetite still not to her baseline. Patient is very anxious about her current symptoms and thinks she has some kind of internal problems, which is causing all her symptoms. Complains of insomnia and weakness. Constitutional: + weakness, + weight loss, No fever Respiratory: No cough, No shortness of breath Cardiovascular: No chest pain, No edema Abdomen: + diarrhea, + nausea, No GI bleeding, No constipation, No pain, No vomiting Musculoskeletal: No muscle pain Female : No dysuria Skin: No rash Medications Current Inpatient Medications Medications (Trade) Dose Ordered Sig/Vega Route Start Time Stop Time Status Last Admin Dose Admin Anastrozole (Arimidex Tab) 1 mg DAILY PO 01/17/17 09:00 02/16/17 08:59 01/19/17 09:27 1 MG Atorvastatin Calcium (Lipitor Tab) 5 mg DAILY PO 01/17/17 09:00 02/16/17 08:59 Future Hold 01/17/17 09:04 5 MG Levothyroxine Sodium (Synthroid Tab) 88 mcg DAILYBB PO 01/17/17 06:30 02/16/17 06:59 01/19/17 05:37 88 MCG Tramadol HCl (Ultram Tab) 50 mg Q4H PRN PO 01/17/17 01:30 02/16/17 01:29 Acetaminophen (Tylenol Tab) 650 mg Q4H PRN PO 01/17/17 01:30 02/16/17 01:29 Zolpidem Tartrate (Ambien Tab) 5 mg HSZ PRN PO 01/17/17 01:30 02/16/17 01:29 01/18/17 01:49 5 MG Nitroglycerin 0.4 mg 0.4 mg UD PRN SL 01/17/17 01:30 02/16/17 01:29 Ceftriaxone Sodium/Dextrose (Rocephin Inj/ Dextrose Add-[place] 50ML) 50 ml @ 100 mls/hr Q24H IV 01/17/17 04:00 01/19/17 23:59 01/19/17 03:58 100 MLS/HR Famotidine (Pepcid Tab) 20 mg BID PO 01/17/17 09:00 02/16/17 08:59 01/19/17 09:23 20 MG Ondansetron HCl (Zofran Inj) 4 mg Q6H PRN IV 01/17/17 01:45 02/16/17 01:44 Lactobacillus Acidophilus (Floranex Tab) 4 tab TIDM PO 01/17/17 08:00 02/16/17 07:59 01/19/17 09:22 4 TAB Objective Vital Signs Date Time Temp Pulse Resp B/P Pulse Ox O2 Delivery O2 Flow Rate FiO2 01/19/17 15:05 36.4 77 16 92/62 96 Room Air 01/19/17 12:30 Room Air 01/19/17 11:32 36.4 68 18 99/70 98 Room Air 01/19/17 08:00 Room Air 01/19/17 07:32 36.4 75 18 98/66 97 Room Air 01/19/17 04:09 36.6 74 16 99/63 96 Room Air 01/19/17 04:00 Room Air 01/19/17 00:00 Room Air 01/18/17 23:41 36.6 70 16 109/72 99 Room Air 01/18/17 20:00 Room Air 01/18/17 19:14 36.0 72 20 105/72 98 Room Air 01/18/17 16:00 Room Air Physical Exam General Appearance: WD/WN, no apparent distress Neck: supple, trachea midline Respiratory/Chest: chest non-tender, lungs clear, no respiratory distress, no accessory muscle use Cardiovascular: regular rate, rhythm, no edema Abdomen: normal bowel sounds, non tender, soft Extremities: non-tender, no pedal edema Neurologic/Psychiatric: alert, normal mood/affect, oriented x 3 Skin: normal color, warm/dry, no rash Laboratory Results Results Past 24 Hours Test 01/19/17 00:00 01/19/17 05:55 Range/Units White Blood Count 8.71 4.8-10.8 K/uL Red Blood Count 3.72 4.2-5.4 M/uL Hemoglobin 10.9 12.0-16.0 g/dL Hematocrit 32.1 37-47 % Mean Corpuscular Volume 86.3 80-100 fL Mean Corpuscular Hemoglobin 29.3 25-34 pg Mean Corpuscular Hemoglobin Concent 34.0 32-36 g/dl Platelet Count 500 130-400 K/uL Mean Platelet Volume 8.7 7.4-10.4 fL Neutrophils (%) (Auto) 72.2 % Lymphocytes (%) (Auto) 13.3 % Monocytes (%) (Auto) 10.2 % Eosinophils (%) (Auto) 3.3 % Basophils (%) (Auto) 0.5 % Neutrophils # (Auto) 6.29 1.4-6.5 K/uL Lymphocytes # (Auto) 1.16 1.2-3.4 K/uL Monocytes # (Auto) 0.89 0.11-0.59 K/uL Eosinophils # (Auto) 0.29 0-0.5 K/uL Basophils # (Auto) 0.04 0-0.2 K/uL RDW Standard Deviation 39.8 36.4-46.3 fL RDW Coefficient of Variation 12.6 11.5-14.5 % Immature Granulocyte % (Auto) 0.5 % Immature Granulocyte # (Auto) 0.04 0.00-0.02 K/uL Prothrombin Time 12.1 9.0-12.0 SECONDS Prothromb Time International Ratio 1.1 0.9-1.1 Activated Partial Thromboplast Time 33.4 21.0-31.0 SECONDS Partial Thromboplastin Ratio 1.3 Sodium Level 140 136-145 mmol/L Potassium Level 3.2 3.5-5.1 mmol/L Chloride Level 104 98-107 mmol/L Carbon Dioxide Level 23 21-32 mmol/L Anion Gap 13.0 3-11 mmol/L Blood Urea Nitrogen 55 7-18 mg/dl Creatinine 5.40 0.60-1.20 mg/dl Est Creatinine Clear Calc Drug Dose 7.8 ml/min Estimated GFR () 8.5 Estimated GFR (Non- 7.3 BUN/Creatinine Ratio 10.4 10-20 Random Glucose 106 70-99 mg/dl Calcium Level 8.8 8.5-10.1 mg/dl Magnesium Level 1.8 1.8-2.4 mg/dl 25-Hydroxy Vitamin D Total 42.6 30-100 ng/ml Microbiology Results 01/19/17 WBC Smear - Final, Resulted 01/19/17 Shiga Toxin Test, Resulted Pending 01/19/17 Stool Culture, Resulted Pending 01/18/17 C.difficile Toxin B Gene (PCR) - Final, Complete No C. difficile toxin B gene detected Assessment and Plan This is a 71 y/o female with PMHx of HTN, hypothyroidism, breast cancer, pancreatitis (about 2 years), and HLD admitted to the hospital because of acute kidney injury. Patient has loss of appetite, nausea and feeling weak Q04lxin. Also complains of non-bloody diarrhea X5days prior to admission. In ED her Cr 9.2 and BUN 88. UA showed 1+ proteinuria, pyuria, and microscopic hematuria. * Acute Kidney Injury - The etiology is unclear. Could be 2/2 prerenal azotemia vs ATN. Given the history diarrhea and loss of appetite, dehydration would be a contributing factor for the EB. No hx of kidney disease. - Creatine is improving and trending down (5.4). - D/genet IVF per Nephrology, will continue to monitor I/O - CT w/out contrast showed slight dilatation of both collecting systems without em hydronephrosis. No urinary calculi. - Continue to hold HCTZ, lisinopril and statin for now - Nephrology following - Urine protein/creatinine ratio is elevated (1.6), Urine protein is elevated (31), urine Na+ and Cr are normal. Other urine studies are pending. - PTH is elevated (159), Vit D level normal - Vasculitis workups given age and abnormal urinary findings - pending. - Nephrology recommendations: 1. If symptoms don't improve, repeat imaging to follow up on b/l hydronephrosis 2. No plan for dialysis at this moment. However if next 24hrs symptoms don't improve, have volume overload, or significant electrolytes abnormalities might consider dialysis 3. Dose medications for GFR <10 * Diarrhea - could be 2/2 viral or antibiotic induced - d/genet IVF given patient's PO intake has improved - C/w probiotic - Stool C. diff negative - Stool Cx and other stool tests are pending - Monitor I/O * Possible UTI - UA finding indicated possible of UTI - Day #3 of Ceftrixone, will stop tomorrow - UCx - more than 3 types of organisms were present, most likely contaminated. * Electrolytes abnormalities - Hypomagnesium: replete - Low potassium: given 40mcq KCL today - f/u tomorrow BMP * Chronic Conditions HTN: Will hold HCTZ and lisinopril for now HLD: Will hold statin for now Hypothyroidism: c/w Synthroid 88 g daily Breast CA: C/w anastrozole 1mg daily * Insomnia - Benadryl 25mg prn *DVT prophylaxis - SCDs *Code Status - Full code Resident Tracking Resident Involvement: Resident Care Provided Care Provided: Adult Hospital Medicine Reviewed: Pt Seen/Exam by Me Constitutional: denies: fever Respiratory: negative: short of breath Cardiovascular: denies chest pain Gastrointestinal/Abdominal: positive: other (one loose stool), negative: abdominal pain General Appearance: no apparent distress Respiratory: lungs clear, no respiratory distress Cardiovascular: regular rate, rhythm Gastrointestinal: normal bowel sounds, non tender, soft Neurologic/Psychiatric: alert, oriented x 3 Assessment/Plan I have reviewed the medical record and performed a history and physical examination of this patient today. I have discussed the case with Chuck. The above note reflects my findings, conclusions, and recommendations.
[2017-01-19 20:29] VITALS: BP 95/65; PULSE 74; TEMP 36.3; O2SAT 98
[2017-01-19 23:16] VITALS: BP 90/66; PULSE 72; TEMP 36.7; O2SAT 98
[2017-01-20 04:23] VITALS: BP 90/55; PULSE 63; TEMP 36.9; O2SAT 97
[2017-01-20 05:42] LABS: ALBUMIN % 17.37 %; ALPHA-2-GLOBULIN % 30.22 %; BETA GLOBULIN % 16.62 %; CREATININE UR 27 MG/DL (20-320); GAMMA GLOBULIN % 25.72 %
[2017-01-20] MEDS: LEVOTHYROXINE 88 MCG TAB PO SCH (05:54)
[2017-01-20 07:50] LABS: HEMATOCRIT 33.2 % (37-47); MEAN CELL VOLUME 86.9 fL (80-100); MEAN CORPUSCULAR HEMOGLOBIN 29.1 pg (25-34); MEAN PLATELET VOLUME 8.4 fL (7.4-10.4); PLATELET COUNT 434 K/uL (130-400); RED BLOOD COUNT 3.82 M/uL (4.2-5.4); WHITE BLOOD COUNT 9.84 K/uL (4.8-10.8)
[2017-01-20 07:53] LABS: MEAN CORPUSCULAR HGB CONC 33.4 g/dl (32-36)
[2017-01-20] MEDS: LACTOBACILLUS ACIDOPHILUS (FLORANEX) TAB PO SCH ×3 (08:00→16:52)
[2017-01-20] MEDS: FAMOTIDINE 20 MG TAB PO SCH ×2 (08:00→20:56)
[2017-01-20] MEDS: ANASTROZOLE 1 MG TAB PO SCH (08:03)
[2017-01-20 08:14] VITALS: BP 92/63; PULSE 71; TEMP 36.6; O2SAT 97
[2017-01-20 08:24] LABS: BUN/CREATININE RATIO 10.7 (10-20); CALCIUM 9.4 mg/dl (8.5-10.1); CREATININE 4.1 mg/dl (0.60-1.20); POTASSIUM 3.4 mmol/L (3.5-5.1)
[2017-01-20] MEDS ORDERED: POTASSIUM CHLORIDE 10 MEQ TABCR PO ONE (09:00)
[2017-01-20] MEDS ORDERED: NSS + 20MEQ KCL 1000ML 1,000 ML IV SCH (11:00)
[2017-01-20 11:33] VITALS: BP 96/71; PULSE 86; TEMP 36.4; O2SAT 95
--- NOTE | 2017-01-20 11:51 | Nephrology Progress Note ---
Nephrology Progress Note Date of Service Jan 20, 2017. Chief Complaint F/U for acute kidney injury, hypokalemia and metabolic acidosis. Aydin Randolph was seen examined in her room this morning. Her nausea and abdominal discomfort seems to have resolved. Denies any shortness of breath. No episode of fever or chills, vomiting. Continues to have decent urine output with high urine volume and she is trying to increase fluid intake to keep up with the urine output but remain net negative > 600 ml. blood pressure has been running low but asymptomatic. Renal function continues to improve, creatinine 4.1 this morning, potassium still low at 3.4. Review of Systems A complete review of systems was performed. Pertinent positives are noted above. All other systems are negative. Vital Signs Last 8 Hrs Date Time Temp Pulse Resp B/P Pulse Ox O2 Delivery O2 Flow Rate FiO2 01/20/17 11:33 36.4 86 16 96/71 95 Room Air 01/20/17 08:14 36.6 71 18 92/63 97 01/20/17 08:00 Room Air 01/20/17 04:23 36.9 63 16 90/55 97 Room Air 01/20/17 04:00 Room Air I & O 24-Hour Column 01/20/17 08:00 Intake Total 2770 ml Output Total 3300 ml Balance -530 ml Last Recorded Weight Weight (Kilograms): 64.000 Physical Exam GENERAL: Elderly female, AAA x 3, pleasant, healthy-appearing, not in any distress. NECK: Supple, no JVD. RESPIRATORY: Normal breathing efforts, no accessory muscle use, clear to auscultation bilaterally, no wheezes or rales. CARDIOVASCULAR: S1, S2 normal, rate rhythm regular. EXTREMITY: No lower extremity edema NEURO: speech fluent. PSYCHIATRY: Normal mood and judgment Family History Cancer Social History Smokeless Tobacco Use: No Alcohol Use: none Drug Use: none Occupation: employed Laboratory Results Past 24 Hours 01/20/17 07:35 01/20/17 07:35 Test 01/20/17 07:35 Red Blood Count 3.82 M/uL (4.2-5.4) Mean Corpuscular Volume 86.9 fL (80-100) Mean Corpuscular Hemoglobin 29.1 pg (25-34) Mean Corpuscular Hemoglobin Concent 33.4 g/dl (32-36) RDW Standard Deviation 41.1 fL (36.4-46.3) RDW Coefficient of Variation 12.7 % (11.5-14.5) Mean Platelet Volume 8.4 fL (7.4-10.4) Anion Gap 14.0 mmol/L (3-11) Est Creatinine Clear Calc Drug Dose 11.2 ml/min Estimated GFR () 11.8 Estimated GFR (Non- 10.2 BUN/Creatinine Ratio 10.7 (10-20) Calcium Level 9.4 mg/dl (8.5-10.1) Allergies Coded Allergies: Exemestane (Verified Allergy, Intermediate, HIVES, 01/16/17) Medications Current Inpatient Medications Medications (Trade) Dose Ordered Sig/Vega Route Start Time Stop Time Status Last Admin Dose Admin Anastrozole (Arimidex Tab) 1 mg DAILY PO 01/17/17 09:00 02/16/17 08:59 01/20/17 08:03 1 MG Atorvastatin Calcium (Lipitor Tab) 5 mg DAILY PO 01/17/17 09:00 02/16/17 08:59 Future Hold 01/17/17 09:04 5 MG Levothyroxine Sodium (Synthroid Tab) 88 mcg DAILYBB PO 01/17/17 06:30 02/16/17 06:59 01/20/17 05:54 88 MCG Tramadol HCl (Ultram Tab) 50 mg Q4H PRN PO 01/17/17 01:30 02/16/17 01:29 Acetaminophen (Tylenol Tab) 650 mg Q4H PRN PO 01/17/17 01:30 02/16/17 01:29 Zolpidem Tartrate (Ambien Tab) 5 mg HSZ PRN PO 01/17/17 01:30 02/16/17 01:29 01/18/17 01:49 5 MG Nitroglycerin (Nitrostat Tab) 0.4 mg UD PRN SL 01/17/17 01:30 02/16/17 01:29 Famotidine (Pepcid Tab) 20 mg BID PO 01/17/17 09:00 02/16/17 08:59 01/20/17 08:00 20 MG Ondansetron HCl (Zofran Inj) 4 mg Q6H PRN IV 01/17/17 01:45 02/16/17 01:44 Lactobacillus Acidophilus (Floranex Tab) 4 tab TIDM PO 01/17/17 08:00 02/16/17 07:59 01/19/17 09:22 4 TAB Diphenhydramine HCl 25 mg 25 mg PM PRN PO 01/19/17 15:45 02/18/17 15:44 Potassium Chloride/Sodium Chloride 1,000 ml @ 100 mls/hr Q10H IV 01/20/17 11:00 02/19/17 10:59 UNV Sodium Bicarbonate/ Dextrose (Sodium Bicarbonate 8.4% Inj/D5W 1000ml) 1,150 ml @ 100 mls/hr [id number] IV 01/20/17 11:00 02/19/17 10:59 UNV Impression (1) Acute kidney injury (2) Metabolic acidosis, increased anion gap (3) Anemia (4) HTN (hypertension) (5) Hypomagnesemia Carissa is a 71-year-old female with no prior history of chronic kidney disease admitted with them 2 weeks history of anorexia, nausea, weight loss, feeling poorly and 5 days history of loose watery diarrhea. He she has been hypotensive and lightheaded prior to coming to the hospital and has been taking lisinopril and hydrochlorothiazide with ongoing diarrhea and poor p.o. intake. no NSAID use, no symptom suggestive of systemic vasculitis. Urinalysis was positive for low grade proteinuria, microscopic hematuria and pyuria. CT abdomen pelvis concerning for bilateral mild hydronephrosis without any nephrolithiasis or evidence of retroperitoneal fibrosis however, CT was done without contrast considering acute kidney injury. she received almost 4 liters of IV fluid since admission and blood pressure now slightly better and overall she is feeling a be eat better. Unclear etiology for acute kidney injury at this point however, differentials include prerenal versus ATN, cannot exclude possibility for intrinsic renal disease or some form of vasculitis. Unclear whether bilateral mild hydronephrosis is having any impact on her acute kidney injury. No retroperitoneal lymphadenopathy identified however with her history of breast cancer that would be always a concern. Recommendations --continue to monitor intake and output closely, as patient seems to be in post ATN diuresis phase, advised her to continue to drink plenty of liquids. --start on Dextrose 5% with bicarb at 100 ml/h --Continue to hold lisinopril, hydrochlorothiazide and avoiding all nephrotoxins medications --dose medications for GFR less than 10 --repeat renal panel and mg and phos in am. --expect renal function to continue to improve, however, ATN may take weeks to recover --possible discharge tomorrow with repeat renal panel and F/U on Monday ( , will schedule ) Will follow. This chart was completed utilizing [employer] Speech and voice recognition software. Grammatical errors, random word insertions, pronoun errors and incomplete sentences are occasional consequences of this system. Any questions or concerns about the content, text or information contained within the body of this dictation should be addressed directly to the physician for clarification.
--- NOTE | 2017-01-20 11:55 | Family Medicine Progress Note ---
Progress Note Date of Service Jan 20, 2017. Subjective Pt evaluation today including: conversation w/ patient, physical exam, lab review, conversation w/ accounting policy consultant Pain: Denies Voiding: no voiding problems Patient was seen at the bedside. She had 2 BM yesterday and it is not loose anymore. Denies any nausea this morning. She is tolerating PO intake well. Constitutional: No chills, No fever Respiratory: No cough, No shortness of breath Abdomen: No constipation, No diarrhea, No nausea, No pain, No vomiting Musculoskeletal: No muscle pain Female : No dysuria Skin: No rash Medications Current Inpatient Medications Medications (Trade) Dose Ordered Sig/Vega Route Start Time Stop Time Status Last Admin Dose Admin Anastrozole (Arimidex Tab) 1 mg DAILY PO 01/17/17 09:00 02/16/17 08:59 01/20/17 08:03 1 MG Atorvastatin Calcium (Lipitor Tab) 5 mg DAILY PO 01/17/17 09:00 02/16/17 08:59 Future Hold 01/17/17 09:04 5 MG Levothyroxine Sodium (Synthroid Tab) 88 mcg DAILYBB PO 01/17/17 06:30 02/16/17 06:59 01/20/17 05:54 88 MCG Tramadol HCl (Ultram Tab) 50 mg Q4H PRN PO 01/17/17 01:30 02/16/17 01:29 Acetaminophen (Tylenol Tab) 650 mg Q4H PRN PO 01/17/17 01:30 02/16/17 01:29 Zolpidem Tartrate (Ambien Tab) 5 mg HSZ PRN PO 01/17/17 01:30 02/16/17 01:29 01/18/17 01:49 5 MG Nitroglycerin (Nitrostat Tab) 0.4 mg UD PRN SL 01/17/17 01:30 02/16/17 01:29 Famotidine (Pepcid Tab) 20 mg BID PO 01/17/17 09:00 02/16/17 08:59 01/20/17 08:00 20 MG Ondansetron HCl (Zofran Inj) 4 mg Q6H PRN IV 01/17/17 01:45 02/16/17 01:44 Lactobacillus Acidophilus (Floranex Tab) 4 tab TIDM PO 01/17/17 08:00 02/16/17 07:59 01/19/17 09:22 4 TAB Diphenhydramine HCl 25 mg 25 mg PM PRN PO 01/19/17 15:45 02/18/17 15:44 Potassium Chloride/Sodium Chloride 1,000 ml @ 100 mls/hr Q10H IV 01/20/17 11:00 02/19/17 10:59 UNV Sodium Bicarbonate/ Dextrose (Sodium Bicarbonate 8.4% Inj/D5W 1000ml) 1,150 ml @ 100 mls/hr [id number] IV 01/20/17 11:00 02/19/17 10:59 UNV Objective Vital Signs Date Time Temp Pulse Resp B/P Pulse Ox O2 Delivery O2 Flow Rate FiO2 01/20/17 11:33 36.4 86 16 96/71 95 Room Air 01/20/17 08:14 36.6 71 18 92/63 97 01/20/17 08:00 Room Air 01/20/17 04:23 36.9 63 16 90/55 97 Room Air 01/20/17 04:00 Room Air 01/20/17 00:00 Room Air 01/19/17 23:16 36.7 72 18 90/66 98 Room Air 01/19/17 20:29 36.3 74 16 95/65 98 Room Air 01/19/17 20:00 Room Air 01/19/17 16:00 Room Air 01/19/17 15:05 36.4 77 16 92/62 96 Room Air 01/19/17 12:30 Room Air Physical Exam General Appearance: WD/WN, no apparent distress Neck: supple, trachea midline Respiratory/Chest: chest non-tender, lungs clear, normal breath sounds, no respiratory distress, no accessory muscle use Cardiovascular: regular rate, rhythm, no edema Abdomen: normal bowel sounds, non tender, soft Extremities: non-tender, no pedal edema Neurologic/Psychiatric: alert, normal mood/affect, oriented x 3 Skin: normal color, warm/dry, no rash Laboratory Results Results Past 24 Hours Test 01/20/17 07:35 Range/Units White Blood Count 9.84 4.8-10.8 K/uL Red Blood Count 3.82 4.2-5.4 M/uL Hemoglobin 11.1 12.0-16.0 g/dL Hematocrit 33.2 37-47 % Mean Corpuscular Volume 86.9 80-100 fL Mean Corpuscular Hemoglobin 29.1 25-34 pg Mean Corpuscular Hemoglobin Concent 33.4 32-36 g/dl RDW Standard Deviation 41.1 36.4-46.3 fL RDW Coefficient of Variation 12.7 11.5-14.5 % Platelet Count 434 130-400 K/uL Mean Platelet Volume 8.4 7.4-10.4 fL Sodium Level 139 136-145 mmol/L Potassium Level 3.4 3.5-5.1 mmol/L Chloride Level 107 98-107 mmol/L Carbon Dioxide Level 18 21-32 mmol/L Anion Gap 14.0 3-11 mmol/L Blood Urea Nitrogen 44 7-18 mg/dl Creatinine 4.10 0.60-1.20 mg/dl Est Creatinine Clear Calc Drug Dose 11.2 ml/min Estimated GFR () 11.8 Estimated GFR (Non- 10.2 BUN/Creatinine Ratio 10.7 10-20 Random Glucose 106 70-99 mg/dl Calcium Level 9.4 8.5-10.1 mg/dl Assessment and Plan This is a 71 y/o female with PMHx of HTN, hypothyroidism, breast cancer, pancreatitis (about 2 years), and HLD admitted to the hospital because of acute kidney injury. Patient has loss of appetite, nausea and feeling weak [id number]. Also complains of non-bloody diarrhea X5days prior to admission. In ED her Cr 9.2 and BUN 88. UA showed 1+ proteinuria, pyuria, and microscopic hematuria. * Acute Kidney Injury - The etiology is unclear. Could be 2/2 prerenal azotemia vs ATN. Given the history diarrhea and loss of appetite, dehydration would be a contributing factor for the EB. No hx of kidney disease. - Creatinine is improving and trending down (4.1). - Restarted IVF NSS+20KCL @100mls/hr - CT w/out contrast showed slight dilatation of both collecting systems without em hydronephrosis. No urinary calculi. - Continue to hold HCTZ, lisinopril and statin for now - Nephrology following - Urine protein/creatinine ratio is elevated (1.6), Urine protein is elevated (31), urine Na+ and Cr are normal. Other urine studies are pending. - PTH is elevated (159), Vit D level normal - Vasculitis workups given age and abnormal urinary findings - pending. - Nephrology recommendations: 1. If symptoms don't improve, repeat imaging to follow up on b/l hydronephrosis 2. No plan for dialysis at this moment. However if next 24hrs symptoms don't improve, have volume overload, or significant electrolytes abnormalities might consider dialysis 3. Dose medications for GFR <10 * Diarrhea - mostly resolved - could be 2/2 viral or antibiotic induced - On IVF NSS+20KCL @100mls/hr - C/w probiotic - Stool C. diff negative - Stool Cx and other stool tests are pending - Monitor I/O * Possible UTI - UA finding indicated possible of UTI - Completed 3 days course of Ceftrixone - UCx - more than 3 types of organisms were present, most likely contaminated. * Electrolytes abnormalities - Hypomagnesium: replete - Low potassium: given 40mcq KCL today - f/u tomorrow BMP * Chronic Conditions HTN: Will hold HCTZ and lisinopril for now HLD: Will hold statin for now Hypothyroidism: c/w Synthroid 88 g daily Breast CA: C/w anastrozole 1mg daily * Insomnia - Benadryl 25mg prn *DVT prophylaxis - SCDs *Code Status - Full code Reviewed: Pt Seen/Exam by Me History no new concerns no abdominal pain. no bm today Constitutional: denies: fever Respiratory: negative: short of breath Cardiovascular: denies chest pain Gastrointestinal/Abdominal: negative: abdominal pain General Appearance: no apparent distress Respiratory: lungs clear, no respiratory distress Cardiovascular: regular rate, rhythm Gastrointestinal: normal bowel sounds, non tender, soft Neurologic/Psychiatric: alert, oriented x 3 Skin Characteristics: warm/dry Assessment/Plan I have reviewed the medical record and performed a history and physical examination of this patient today. I have discussed the case with Chuck. The above note reflects my findings, conclusions, and recommendations. Resident Tracking Resident Involvement: Resident Care Provided Care Provided: Adult Hospital Medicine
[2017-01-20] MEDS: SODIUM BICARBONATE 8.4% INJ 150 MEQ in DEXTROSE 5% 1000ML 1,000 ML IV SCH ×2 (13:14→23:56)
[2017-01-20 14:31] VITALS: BP 95/69; PULSE 86; TEMP 36.3; O2SAT 99
[2017-01-20 19:51] VITALS: BP 110/73; PULSE 81; TEMP 36.7; O2SAT 96
[2017-01-20 22:55] VITALS: BP 110/76; PULSE 87; TEMP 36.8; O2SAT 100
[2017-01-21 04:11] VITALS: BP 103/68; PULSE 72; TEMP 36.6; O2SAT 99
[2017-01-21] MEDS: LEVOTHYROXINE 88 MCG TAB PO SCH (06:17)
[2017-01-21 07:44] LABS: HEMATOCRIT 33.5 % (37-47); MEAN CORPUSCULAR HEMOGLOBIN 28.8 pg (25-34); MEAN CORPUSCULAR HGB CONC 33.1 g/dl (32-36); MEAN PLATELET VOLUME 8.6 fL (7.4-10.4); PLATELET COUNT 412 K/uL (130-400); RED BLOOD COUNT 3.85 M/uL (4.2-5.4)
[2017-01-21 07:55] VITALS: BP 95/66; PULSE 81; TEMP 36.8; O2SAT 98
[2017-01-21] MEDS: LACTOBACILLUS ACIDOPHILUS (FLORANEX) TAB PO SCH (08:00)
[2017-01-21 08:14] LABS: CALCIUM 9.1 mg/dl (8.5-10.1); CREATININE 3.3 mg/dl (0.60-1.20); MAGNESIUM 1.4 mg/dl (1.8-2.4); PHOSPHORUS 3.4 mg/dl (2.5-4.9); POTASSIUM 3.2 mmol/L (3.5-5.1)
[2017-01-21] MEDS: FAMOTIDINE 20 MG TAB PO SCH (08:21)
[2017-01-21] MEDS: ANASTROZOLE 1 MG TAB PO SCH (08:24)
[2017-01-21] MEDS: MAGNESIUM SULFATE 1GM / D5W 1 GM in PREMIXED IN D5W 100 ML IV SCH ×2 (09:00→10:05)
[2017-01-21] MEDS ORDERED: POTASSIUM CHLORIDE 20 MEQ TABCR PO SCH (09:00)
[2017-01-21] MEDS ORDERED: MCRK20 PO (10:33)
--- NOTE | 2017-01-21 10:38 | Discharge Instructions ---
Discharge Instructions Date of Service Jan 21, 2017. Admission Reason for Admission: Acute Renal Failure, Hypomagnesemia Discharge Discharge Diagnosis / Problem: Acute Kidney Injury Discharge Goals Goal(s): Decrease discomfort, Increase independence, Improve disease control, Diagnostic testing Activity Recommendations Activity Limitations: resume your previous activity . Instructions / Follow-Up Instructions / Follow-Up Will be holding HCTZ, Lisinopril and statin. Prescribed potassium supplement 40meq. Take it daily. Follow up with Dr. Fragoso on Monday. Current Hospital Diet Patient's current hospital diet: Regular Diet Discharge Diet Recommended Diet: Regular Diet Pending Studies Studies pending at discharge: yes List of pending studies: vasculitis workups and stool giardia antigen Laboratory Results Lipid Panel Test 01/16/17 16:54 Range/Units Triglycerides Level 150 0-150 mg/dl Cholesterol Level 141 0-200 mg/dl HDL Cholesterol 61 mg/dl Cholesterol/HDL Ratio 2.3 LDL Cholesterol, Calculated 50 mg/dl Medical Emergencies . Who to Call and When: Medical Emergencies: If at any time you feel your situation is an emergency, please call 911 immediately. . Non-Emergent Contact Non-Emergency issues call your: Primary Care Provider . . "Provider Documentation" section prepared by Balbir Woods. VTE Core Measure Inpt VTE Proph given/why not?: SCD's
[2017-01-21 11:12] VITALS: BP 95/66; PULSE 81; TEMP 36.8; O2SAT 98
--- NOTE | 2017-01-21 11:28 | Nephrology Progress Note ---
Nephrology Progress Note Date of Service Jan 21, 2017. Chief Complaint EB Subjective No acute events overnight. Appetite good. Ambulating in room without difficulty. No lightheadedness, dizziness, presyncope. Denies shortness of breath. No urinary complaints. Requesting to go home today. Review of Systems A complete review of systems was performed. Pertinent positives are noted above. All other systems are negative. Vital Signs Last 8 Hrs Date Time Temp Pulse Resp B/P Pulse Ox O2 Delivery O2 Flow Rate FiO2 01/21/17 07:55 36.8 81 17 95/66 98 Room Air 01/21/17 07:45 Room Air 01/21/17 04:11 36.6 72 18 103/68 99 Room Air 01/21/17 04:00 Room Air I & O 24-Hour Column 01/21/17 08:00 Intake Total 3315 ml Output Total 3150 ml Balance 165 ml Last Recorded Weight Weight (Kilograms): 59.800 Physical Exam General Appearance: WD/WN, no apparent distress Head: normocephalic, atraumatic Eyes: normal inspection, sclerae normal ENT: normal ENT inspection, pharynx normal Neck: supple, no JVD Respiratory/Chest: lungs clear, no respiratory distress, no accessory muscle use Cardiovascular: regular rate, rhythm, no gallop Abdomen/GI: non tender, soft Extremities/Musculoskelatal: normal inspection, no pedal edema Neurologic/Psych: alert, oriented x 3 Family History Cancer Social History Smokeless Tobacco Use: No Alcohol Use: none Drug Use: none Occupation: employed Laboratory Results Past 24 Hours 01/21/17 06:53 01/21/17 06:53 Test 01/21/17 06:53 Red Blood Count 3.85 M/uL (4.2-5.4) Mean Corpuscular Volume 87.0 fL (80-100) Mean Corpuscular Hemoglobin 28.8 pg (25-34) Mean Corpuscular Hemoglobin Concent 33.1 g/dl (32-36) RDW Standard Deviation 40.7 fL (36.4-46.3) RDW Coefficient of Variation 12.7 % (11.5-14.5) Mean Platelet Volume 8.6 fL (7.4-10.4) Anion Gap 12.0 mmol/L (3-11) Est Creatinine Clear Calc Drug Dose 12.7 ml/min Estimated GFR () 15.4 Estimated GFR (Non- 13.3 BUN/Creatinine Ratio 12.0 (10-20) Calcium Level 9.1 mg/dl (8.5-10.1) Phosphorus Level 3.4 mg/dl (2.5-4.9) Magnesium Level 1.4 mg/dl (1.8-2.4) Albumin 3.0 gm/dl (3.4-5.0) Allergies Coded Allergies: Exemestane (Verified Allergy, Intermediate, HIVES, 01/16/17) Medications Current Inpatient Medications Medications (Trade) Dose Ordered Sig/Vega Route Start Time Stop Time Status Last Admin Dose Admin Anastrozole (Arimidex Tab) 1 mg DAILY PO 01/17/17 09:00 02/16/17 08:59 01/21/17 08:24 1 MG Atorvastatin Calcium (Lipitor Tab) 5 mg DAILY PO 01/17/17 09:00 02/16/17 08:59 Future Hold 01/17/17 09:04 5 MG Levothyroxine Sodium (Synthroid Tab) 88 mcg DAILYBB PO 01/17/17 06:30 02/16/17 06:59 01/21/17 06:17 88 MCG Tramadol HCl (Ultram Tab) 50 mg Q4H PRN PO 01/17/17 01:30 02/16/17 01:29 Acetaminophen (Tylenol Tab) 650 mg Q4H PRN PO 01/17/17 01:30 02/16/17 01:29 Zolpidem Tartrate (Ambien Tab) 5 mg HSZ PRN PO 01/17/17 01:30 02/16/17 01:29 01/18/17 01:49 5 MG Nitroglycerin (Nitrostat Tab) 0.4 mg UD PRN SL 01/17/17 01:30 02/16/17 01:29 Famotidine (Pepcid Tab) 20 mg BID PO 01/17/17 09:00 02/16/17 08:59 01/21/17 08:21 20 MG Ondansetron HCl (Zofran Inj) 4 mg Q6H PRN IV 01/17/17 01:45 02/16/17 01:44 Lactobacillus Acidophilus (Floranex Tab) 4 tab TIDM PO 01/17/17 08:00 02/16/17 07:59 01/19/17 09:22 4 TAB Diphenhydramine HCl (Benadryl Cap) 25 mg PM PRN PO 01/19/17 15:45 02/18/17 15:44 Potassium Chloride (Klor-Con Tab) 40 meq QAM PO 01/21/17 09:00 02/20/17 08:59 01/21/17 09:00 40 MEQ Impression (1) Acute kidney injury (2) Metabolic acidosis, increased anion gap (3) Anemia (4) HTN (hypertension) (5) Hypomagnesemia Carissa is a 71-year-old female with no prior history of renal insufficiency who was admitted to [facility] with EB following two weeks of anorexia, nausea, weight loss. She reported at least five days of loose watery diarrhea. Carissa was hypotensive and lightheaded prior to coming to the hospital. She was taking lisinopril and hydrochlorothiazide with ongoing diarrhea and poor p.o. intake. She denied NSAID use. Urinalysis was positive for low grade proteinuria, microscopic hematuria and pyuria. Noncontrast CT abdomen/pelvis was concerning for bilateral mild hydronephrosis without any nephrolithiasis or evidence of retroperitoneal fibrosis. EB consistent with prerenal versus ATN, cannot exclude possibility for intrinsic renal disease or some form of vasculitis. UA with microscopy to follow up microscopic hematuria can be completed as an outpatient. Renal function is improving. Despite documentation, nursing and the patient report good oral intake. Volume status appears appropriate. IVF are still running. Orthostatic vital signs have been requested prior to discharge. Additional magnesium sulfate replacement 2 grams IV and oral potassium have been ordered for this morning. Outpatient follow up with Dr. Fragoso is arranged for the nephrology clinic on Monday (01/23/17 @ 1:15) Recommendations -- Stop IVF -- Continue KCl 40 mEq daily -- Mg Sulfate 2 grams IV -- Repeat orthostatic vitals prior to discharge -- Hold lisinopril and HCTZ -- Follow up with Dr. Fragoso on 01/23/17 @ 1:15. Pre appointment laboratory studies have been ordered. -- Encourage at least 2 liters or fluid daily.
[2017-01-21 14:36] LABS: GAMMA GLOBULIN 1.3 G/DL (0.8-1.7); MYELOPEROXIDASE AB <1.0 AI (<1.0); TOTAL PROTEIN 6.7 G/DL (6.2-8.3)
--- NOTE | 2017-01-21 17:12 | Discharge Summary ---
Discharge Summary Date of Service Jan 21, 2017. (Bablir Woods MD) Discharge Summary Admission Date: Jan 17, 2017 at 01:28 Discharge Date: Jan 21, 2017 Discharge Disposition: Home Principal Diagnosis: Acute Kidney Injury Procedures: Patient Name: MASOUD COREAS Unit Number: [id number] Dictated: 01/16/172230 Transcribed: 01/16/172230 JEANNIE Printed Date/Time: [~ rep prt dt]/[~ rep prt tm] [~ rep ct labl] - [~ rep ct ivnm] [facility] [place] [place] [address] Dictated: 01/16/172230 Transcribed: 01/16/172230 JA Printed Date/Time: [~ rep prt dt]/[~ rep prt tm] [~ rep ct labl] - [~ rep ct ivnm] CT OF THE ABDOMEN AND PELVIS WITHOUT CONTRAST CLINICAL HISTORY: Acute renal failure. COMPARISON STUDY: CT of the abdomen and pelvis March 15, 2015. TECHNIQUE: Axial images of the abdomen and pelvis were obtained without IV contrast. Images were reviewed in the axial, sagittal, and coronal planes. FINDINGS: Visualized portions of the lower chest demonstrate a moderate sized hiatal hernia. There is a possible mildly enlarged lymph node adjacent to the hiatal hernia that measures 2.1 x 1.5 cm. No pneumatosis, free air or portal venous gas is present. There is mild dilatation of both collecting systems. There is no em hydronephrosis. There are no ureteral calculus. Unenhanced images of the liver, spleen, adrenal glands and pancreas are unremarkable. There is no biliary ductal dilatation status post cholecystectomy. There is slight mucosal fat deposition within the colon. The appendix is normal. There are calcified uterine fibroids. No suspicious skeletal lesions are identified. IMPRESSION: 1. Slight dilatation of both collecting systems without em hydronephrosis. No urinary calculi. 2. Partially visualized nodule adjacent to a hiatal hernia within the lower chest. This could reflect an enlarged lymph node. A nonemergent chest CT is recommended. 3. No bowel obstruction. Electronically signed by: Gustabo Queen M.D. 01/16/2017 10:38 PM Dictated Date/Time: 01/16/2017 10:31 PM The status of this report is Signed. Draft = Not yet reviewed or approved by Radiologist. Signed = Reviewed and approved by Radiologist. <AttendingPhy></AttendingPhy> <FamilyPhy>Travis Valencia M.D.</FamilyPhy> < PrimaryPhy>Travis Valencia M.D.</PrimaryPhy> <UnitNumber>[id number]</UnitNumber > <VisitNumber>[id number]</VisitNumber> <PatientName>MASOUD COREAS</ PatientName> <DateOfBirth>1945</DateOfBirth> <Location>[email or web address]</Location> < ServiceDate>01/16/17</ServiceDate> <MNE>ESINDI</MNE> <OrderingPhy>Lars Ya MD</OrderingPhy> <OrderingPhyMNE>f rep ord dr light</OrderingPhyMNE> < DictatingPhyMNE>f rep dict dr light</DictatingPhyMNE> <CCListMNE>f rep ct mne</ CCListMNE> <AdmittingPhyMNE>f pt admit dr light</AdmittingPhyMNE> <AttendingPhyMNE >f pt attend dr light</AttendingPhyMNE> <ConsultingPhyMNE>f pt consult dr light</ConsultingPhyMNE> <FamilyPhyMNE>f pt fam dr light</FamilyPhyMNE> <OtherPhyMNE>f pt other dr light</OtherPhyMNE> < PrimaryPhyMNE>f pt prim care dr light</PrimaryPhyMNE> <ReferringPhyMNE>f pt referring dr light</ReferringPhyMNE> (Balbir Woods MD) Medication Reconciliation New Medications: Potassium Chloride (Klor-Con M20) 20 Meq Tabcr 40 MEQ PO QAM for 14 Days Continued Medications: Anastrozole (Anastrozole) 1 Mg Tab 1 MG PO DAILY Levothyroxine Sodium (Synthroid) 88 Mcg Tab 88 MCG PO DAILY Tramadol (Ultram) 50 Mg Tab 1 TAB PO prn PRN for Pain, TAB Discontinued Medications: Atorvastatin (Lipitor) 10 Mg Tab 5 MG PO DAILY, TAB Hydrochlorothiazide (Hctz) 25 Mg Tab 25 MG PO DAILY, TAB Lisinopril (Lisinopril) 10 Mg Tab 10 MG PO DAILY Discharge Exam Patient was seen at the bedside. She was comfortably lying down on her bed. She states that her appetite is almost to her baseline. Denies any diarrhea. Denies any other complaints. Review of Systems: Constitutional: No chills, No fever, No weakness Respiratory: No cough, No dyspnea at rest, No dyspnea on exertion, No shortness of breath Abdomen: No GI bleeding, No constipation, No diarrhea, No nausea, No pain, No vomiting Musculoskeletal: No muscle pain Genitourinary - Female: No dysuria, No hematuria, No urinary incontinence Neurologic: No weakness Integumentary: No rash Physical Exam: General Appearance: WD/WN, no apparent distress Eyes: PERRL, EOMI Neck: supple, trachea midline Respiratory/Chest: chest non-tender, lungs clear, no respiratory distress, no accessory muscle use Cardiovascular: regular rate, rhythm, no edema Abdomen / GI: normal bowel sounds, non tender, soft Extremities: no pedal edema, non-tender Neurologic/Psychiatric: alert, normal mood/affect, oriented x 3 Skin: normal color, warm/dry, no rash (Balbir Woods MD) Review of Systems: Constitutional: No fever Respiratory: No shortness of breath Cardiovascular: No chest pain Abdomen: No diarrhea, No nausea, No pain, No vomiting Physical Exam: General Appearance: no apparent distress Respiratory/Chest: lungs clear, no respiratory distress Cardiovascular: regular rate, rhythm Abdomen / GI: normal bowel sounds, non tender, soft Neurologic/Psychiatric: alert, oriented x 3 Skin: warm/dry (Homa Frias M.D.) Hospital Course The patient is a 71-year-old female with PMHx of HTN, hypothyroidism, breast cancer, pancreatitis (about 2 years), and HLD presents to the emergency department after being referred from her doctor's office for hypotension and abnormal kidney function tests. Patient reports that she lost her appetite about 10 days previously and has been feeling fatigued and more lethargic over the past week. She did start to experience diarrhea X 4 days ago. She reports an 8 pound weight loss over the past week. She denies any recent travel or sick contacts. She has not been on any recent antibiotics. In ED her Cr 9.2 and BUN 88. UA showed 1+ proteinuria, pyuria, and microscopic hematuria. * Acute Kidney Injury - Patient was admitted for further management. Nephrology was consulted and Dr. Fragoso followed her through her course of hospital stay. The etiology could be 2/2 prerenal azotemia vs ATN vs intrinsic renal disease vs some form of vasculitis. Given the history diarrhea and loss of appetite, dehydration would be a contributing factor for the EB. CT of the abdomen showed slight dilatation of both collecting systems without em hydronephrosis. Patient was started on bicarb drip. HCTZ, lisinopril and statin were on hold given to avoid nephrotoxins medications. Urine workups showed elevated urine protein/ creatinine ratio (1.6), and Urine protein (31); urine Na+ and Cr are normal. PTH is elevated (159), Vit D level normal. Vasculitis workups were performed given age and abnormal urinary findings and it is pending. PRP improved over the course of her hospital stay. Potassium and Mg was replete with supplement. On discharge Cr was 3.3 and BUN was 40. Patient was discharge on 40mg potassium given low potassium level (3.2). Patient will follow up with Dr. Fragoso on Monday. * Diarrhea - resolved on discharge - Most likely viral induced. C.diff was negative. Stool Cx was negative for salmonella, shigella and campylobacteria. Stool Giardia antigen is pending. * Possible UTI - Completed 3 days course of Ceftrixone. UCx was negative. Total Time Spent: Greater than 30 minutes This includes examination of the patient, discharge planning, medication reconciliation, and communication with other providers. (Balbir Woods MD) I have reviewed the medical record and performed a history and physical examination of this patient today. I have discussed the case with Dr. Woods. The above note reflects my findings, conclusions, and recommendations Total Time Spent: Greater than 30 minutes (Homa Frias M.D.) Discharge Instructions Please refer to the electronic Patient Visit Report (Discharge Instructions) for additional information. (Balbir Woods MD) Additional Copies To Travis Valencia M.D. Resident Tracking Resident Involvement: Resident Care Provided Care Provided: [facility] (Balbir Woods MD)
[2017-01-23 17:32] LABS: O&P GIARDIA AG NOT DETECTED (NOT DETECTED)
== END 2017-01-21 11:45 | disposition home or self-care (01) | DRG 683 ==
LOC: ENRESERVTM → ENRESERVDT → C.EDB 20:21 → C.MED 01-17 01:28
PROVIDERS: ADMIT Hospitalist; ATTEND Family Medicine
DX: N17.0 Acute kidney failure with tubular necrosis (principal); E87.2 Acidosis; N39.0 Urinary tract infection, site not specified; E03.9 Hypothyroidism, unspecified; E86.0 Dehydration; D64.9 Anemia, unspecified; E83.42 Hypomagnesemia; R19.7 Diarrhea, unspecified; B34.9 Viral infection, unspecified; E87.6 Hypokalemia; E78.00 Pure hypercholesterolemia, unspecified; G47.00 Insomnia, unspecified; N13.30 Unspecified hydronephrosis; I10 Essential (primary) hypertension; R80.9 Proteinuria, unspecified; R63.4 Abnormal weight loss; R31.9 Hematuria, unspecified; C50.919 Malignant neoplasm of unspecified site of unspecified female breast; E78.5 Hyperlipidemia, unspecified; R63.0 Anorexia; Z87.891 Personal history of nicotine dependence; Z87.19 Personal history of other diseases of the digestive system; Z79.899 Other long term (current) drug therapy; Z79.891 Long term (current) use of opiate analgesic; E53.8 Deficiency of other specified B group vitamins; Z85.3 Personal history of malignant neoplasm of breast

== ENCOUNTER → 2017-01-23 | Outpatient (CLI) | payer OTHER, BC ==
[~2017-01-23] MED LIST changes: -ATOR10TA82 PO; -HYDR25TA4 PO; -LISI-461 PO; +MCRK20 PO
[2017-01-23 12:56] LABS: BASO % 0.7 %; BASO ABS # 0.06 K/uL (0-0.2); COMPLETE YES; EOS % 2.5 %; HEMATOCRIT 38.5 % (37-47); IG% 0.6 %; LYMPH % 16.2 %; LYMPH ABS # 1.42 K/uL (1.2-3.4); MEAN CELL VOLUME 88.7 fL (80-100); MEAN CORPUSCULAR HGB CONC 32.7 g/dl (32-36); MEAN PLATELET VOLUME 9.5 fL (7.4-10.4); MONO % 13.3 %; NEUT % 66.7 %; PLATELET COUNT 428 K/uL (130-400); RED BLOOD COUNT 4.34 M/uL (4.2-5.4); WHITE BLOOD COUNT 8.74 K/uL (4.8-10.8)
[2017-01-23 13:37] LABS: BLOOD UREA NITROGEN 36 mg/dl (7-18); CARBON DIOXIDE 18 mmol/L (21-32); CHLORIDE 101 mmol/L (98-107); GLUCOSE 74 mg/dl (70-99); MAGNESIUM 2.2 mg/dl (1.8-2.4); PHOSPHORUS 2.9 mg/dl (2.5-4.9); POTASSIUM 3.8 mmol/L (3.5-5.1); SODIUM 134 mmol/L (136-145)
[2017-01-23 13:47] LABS: URINE APPEARANCE CLEAR (CLEAR); URINE BILIRUBIN NEG (NEG); URINE COLOR YELLOW; URINE EPITHELIAL CELL AUTO >30 /lpf (0-5); URINE NITRITE NEG (NEG); URINE PH 7.5 (4.5-7.5); UROBILINOGEN NEG (NEG)
[2017-01-23 13:52] LABS: MANUAL MICROSCOPIC REQUIRED? NO; REVIEW REQ? NO; SULFASALICYLIC ACID POS (NEG)
[2017-01-23 14:26] LABS: URINE PROTIEN/CREAT RATIO 1.2 (0-0.2); URINE TOTAL PROTEIN 77.8 mg/dl (0-11.9)
== END | disposition home or self-care (01) ==
LOC: C.LAB1850 10:36
PROVIDERS: ATTEND Internal Medicine Nephrology
DX: N17.9 Acute kidney failure, unspecified (principal)

== ENCOUNTER → 2017-01-30 | Outpatient (CLI) | payer OTHER, BC ==
[2017-01-30 14:29] LABS: BLOOD UREA NITROGEN 22 mg/dl (7-18); BUN/CREATININE RATIO 15.5 (10-20); CALCIUM 9.4 mg/dl (8.5-10.1); CARBON DIOXIDE 20 mmol/L (21-32); CHLORIDE 111 mmol/L (98-107); GLUCOSE 82 mg/dl (70-99); PHOSPHORUS 2.5 mg/dl (2.5-4.9); POTASSIUM 4.1 mmol/L (3.5-5.1); SODIUM 143 mmol/L (136-145)
== END | disposition home or self-care (01) ==
LOC: C.LAB1850 12:30
PROVIDERS: ATTEND Internal Medicine Nephrology
DX: N17.9 Acute kidney failure, unspecified (principal)

== ENCOUNTER → 2017-02-07 | Outpatient (CLI) | payer OTHER, BC ==
[2017-02-07 13:25] LABS: CALCIUM 9.6 mg/dl (8.5-10.1)
[2017-02-07 13:31] LABS: BLOOD UREA NITROGEN 24 mg/dl (7-18); BUN/CREATININE RATIO 18.2 (10-20); C-REACTIVE PROTEIN < 0.29 mg/dl (0-0.29); CARBON DIOXIDE 23 mmol/L (21-32); CHLORIDE 110 mmol/L (98-107); GLUCOSE 83 mg/dl (70-99); POTASSIUM 3.4 mmol/L (3.5-5.1); SODIUM 143 mmol/L (136-145)
== END | disposition home or self-care (01) ==
LOC: C.LAB1850 11:46
PROVIDERS: ATTEND Internal Medicine
DX: N17.9 Acute kidney failure, unspecified (principal)

== ENCOUNTER → 2017-02-27 | Outpatient (CLI) | payer OTHER, BC ==
[2017-02-27 13:34] LABS: URINE APPEARANCE CLEAR (CLEAR); URINE BILIRUBIN NEG (NEG); URINE COLOR YELLOW; URINE EPITHELIAL CELL AUTO 20-30 /lpf (0-5); URINE NITRITE NEG (NEG); URINE PH 5.5 (4.5-7.5); URINE SPECIFIC GRAVITY 1.015 (1.000-1.030); UROBILINOGEN NEG (NEG)
[2017-02-27 13:40] LABS: MANUAL MICROSCOPIC REQUIRED? NO; REVIEW REQ? NO
[2017-02-27 14:05] LABS: BLOOD UREA NITROGEN 20 mg/dl (7-18); BUN/CREATININE RATIO 18.2 (10-20); CALCIUM 9.7 mg/dl (8.5-10.1); CARBON DIOXIDE 22 mmol/L (21-32); CHLORIDE 106 mmol/L (98-107); GLUCOSE 90 mg/dl (70-99); PHOSPHORUS 3.2 mg/dl (2.5-4.9); POTASSIUM 3.8 mmol/L (3.5-5.1); SODIUM 139 mmol/L (136-145)
[2017-02-27 14:08] LABS: URINE PROTIEN/CREAT RATIO 0.1 (0-0.2); URINE TOTAL PROTEIN 12.5 mg/dl (0-11.9)
== END | disposition home or self-care (01) ==
LOC: C.LAB1850 12:05
PROVIDERS: ATTEND Internal Medicine Nephrology
DX: N17.9 Acute kidney failure, unspecified (principal)

== ENCOUNTER → 2017-03-02 | Outpatient (CLI) | payer OTHER, BC ==
--- NOTE | 2017-03-02 12:06 | DIAGNOSTIC IMAGING REPORT ---
CT SCAN OF THE ABDOMEN AND PELVIS WITHOUT CONTRAST CLINICAL HISTORY: Breast carcinoma. Adenopathy. COMPARISON STUDY: 01/16/2017 TECHNIQUE: CT scan of the abdomen and pelvis was performed from the lung bases to the proximal femurs. Images are reviewed in the axial, sagittal, and coronal planes. IV contrast was not administered for this examination. CT DOSE: FINDINGS: Lower chest: There is a hiatal hernia. Liver: The unenhanced liver is normal in size, contour, and attenuation. There is no intrahepatic biliary ductal dilatation. Gallbladder: Surgically absent Spleen: Normal in size and attenuation. Pancreas: Unremarkable. Adrenal glands: Unremarkable. Kidneys: The unenhanced kidneys are normal in size without hydronephrosis. There is no contour deforming renal mass lesion. No renal calculi are identified. Bowel: There are no transition zones indicate bowel obstruction. There is hypertrophy of the subcutaneous serosal fat within the colon. This is a nonspecific finding which has been reported in inflammatory bowel disease. There is no acute diverticulitis. There are no findings to indicate acute appendicitis. Peritoneum: There is no intraperitoneal free air or abdominal ascites. Vasculature: The abdominal aorta is normal in course and caliber. Adenopathy: There is no pelvic or abdominal lymphadenopathy. Pelvic viscera: There are calcified uterine fibroids. Skeletal structures: No destructive lesions are visualized. There are multilevel degenerative changes within the spine. There is a prominent disc osteophyte complex at the L2-3 level. IMPRESSION: 1. No evidence of bowel obstruction. No evidence of free air 2. No renal, ureteral, or bladder calculi identified 3. Hypertrophy of the subserosal colonic fat. This finding has been reported in inflammatory bowel disease 4. The previously queried right para esophageal nodule, likely represents the distal esophagus in a patient with a hiatal hernia Electronically signed by: Yobani Garg M.D. 03/02/2017 12:05 PM Dictated Date/Time: 03/02/2017 11:58 AM
--- NOTE | 2017-03-02 13:46 | DIAGNOSTIC IMAGING REPORT ---
CHEST CT WITHOUT CONTRAST CT DOSE: 833.25 mGycm HISTORY: Z85.3 History of malignant neoplasm of [id number] Lymph node en TECHNIQUE: Multiaxial CT images of the chest were performed without contrast. COMPARISON: Abdomen and pelvis CT 01/16/2017. FINDINGS: The previously described nodule adjacent to the hiatus hernia is demonstrated to be normal distal esophagus. There are few subcentimeter distal esophageal lymph nodes which do not meet CT criteria for pathologic involvement. Moderate hiatus hernia is again noted. No mediastinal or hilar lymphadenopathy. The ascending thoracic aorta measures up to 3.8 cm in diameter. No pleural or pericardial effusions. Postoperative changes seen within the left axilla. No suspicious lytic or blastic osseous lesions. No pneumothorax. The central airways are patent. Punctate calcified granuloma within the right lung apex. Small scarlike densities within the right lower lobe medially. No focal lung consolidations. IMPRESSION: No evidence for metastatic disease within the chest. Specifically, no mediastinal or hilar lymphadenopathy. Moderate hiatus hernia. Electronically signed by: Jasbir Talbot M.D. 03/02/2017 1:44 PM Dictated Date/Time: 03/02/2017 1:02 PM
== END | disposition home or self-care (01) ==
LOC: C.CTS 11:35
PROVIDERS: ATTEND Internal Medicine
DX: R59.9 Enlarged lymph nodes, unspecified (principal); Z85.3 Personal history of malignant neoplasm of breast

== ENCOUNTER → 2017-03-07 | Outpatient (CLI) | payer OTHER, BC ==
--- NOTE | 2017-03-07 16:59 | DIAGNOSTIC IMAGING REPORT ---
LEFT SCAPULA CLINICAL HISTORY: PAIN IN SCAPULA pain COMPARISON: None. DISCUSSION: The bones and joint spaces appear intact. There is no evidence of fracture, dislocation or bony disease. There is no evidence for soft tissue swelling. IMPRESSION: Negative study. Electronically signed by: Karthik Matos M.D. 03/07/2017 4:57 PM Dictated Date/Time: 03/07/2017 4:57 PM
== END | disposition home or self-care (01) ==
LOC: C.RAD1850 16:04
PROVIDERS: ATTEND Internal Medicine
DX: M89.8X1 Other specified disorders of bone, shoulder (principal)

== ENCOUNTER → 2017-05-02 | Outpatient (CLI) | payer OTHER, BC ==
[2017-05-02 15:57] LABS: URINE APPEARANCE CLEAR (CLEAR); URINE BILIRUBIN NEG (NEG); URINE COLOR YELLOW; URINE EPITHELIAL CELL AUTO 20-30 /lpf (0-5); URINE NITRITE NEG (NEG); URINE PH 5.5 (4.5-7.5); URINE SPECIFIC GRAVITY 1.023 (1.000-1.030); UROBILINOGEN NEG (NEG)
[2017-05-02 16:01] LABS: MANUAL MICROSCOPIC REQUIRED? NO; REVIEW REQ? NO
[2017-05-02 16:14] LABS: URINE PROTIEN/CREAT RATIO 0.2 (0-0.2); URINE TOTAL PROTEIN 35.8 mg/dl (0-11.9)
[2017-05-02 16:15] LABS: BLOOD UREA NITROGEN 15 mg/dl (7-18); BUN/CREATININE RATIO 12.7 (10-20); CALCIUM 9.3 mg/dl (8.5-10.1); CARBON DIOXIDE 23 mmol/L (21-32); CHLORIDE 105 mmol/L (98-107); GLUCOSE 136 mg/dl (70-99); PHOSPHORUS 3.1 mg/dl (2.5-4.9); POTASSIUM 3.5 mmol/L (3.5-5.1); SODIUM 138 mmol/L (136-145)
== END | disposition home or self-care (01) ==
LOC: C.LAB1850 14:19
PROVIDERS: ATTEND Internal Medicine Nephrology
DX: N17.9 Acute kidney failure, unspecified (principal)

== ENCOUNTER 2017-05-11 12:42 | Emergency (ER) | payer OTHER, BC ==
[~2017-05-11] VITALS: Ht 162.6 cm; Wt 67.0 kg
[2017-05-11 12:45] VITALS: TEMP 36.6; Ht 162.6 cm; Wt 67.0 kg
[2017-05-11] MEDS ORDERED: SODIUM CHLORIDE 0.9% 1000ML 500 ML IV STA (12:55)
[2017-05-11] MEDS ORDERED: PROMETHAZINE HCL INJ 25 MG/ML 1 ML VIAL IV STA (12:55)
[2017-05-11] MEDS ORDERED: KETOROLAC TROMETHAMINE 30 MG/ML VIAL IV STA (12:55)
[2017-05-11] MEDS ORDERED: SODIUM CHLORIDE 0.9% 1000ML 1,000 ML IV STA (12:55)
--- NOTE | 2017-05-11 13:13 | EMERGENCY ROOM VISIT NOTE ---
History Report prepared by Neeraj: Aime Mitchell Under the Supervision of: Dr. Taye Wood M.D. First contact with patient: 12:52 Chief Complaint: ABDOMINAL PAIN Stated Complaint: ABD PAIN History of Present Illness The patient is a 72 year old female who presents to the Emergency Room with complaints of waxing and waning, severe, lower abdominal pain beginning 12 hours ago. She currently rates her discomfort a 10/10 in severity. The nursing staff states that the patient went to bed last night with her pain and woke with it again this am. They report she did not know what to do, so she called EMS. The nurse notes that she was given 6 mg of morphine in route and is still having pain. The patient states that she feels slightly nauseous and has subjective fevers. She notes that her last meal was about 7 hours ago, and she ate red potatoes, ham, and green beans. The patient reports that this did not change her symptoms. She denies diarrhea, bloating, hernia, and feeling like this before. The patient also denies new back pain, but she states that it is hard to say because of her chronic low back pain. She notes that she occasionally takes Tramadol for her back pain. She denies being on blood thinners and denies a history of diverticulitis and surgeries to her abdomen. The patient reports that she believes she was diagnosed with A-Fib a while ago, but she was never treated. She notes that she has a history of breast cancer. The patient states she was hospitalized three months ago for acute renal failure. Source of History: patient Onset: 12 hours ago Position: abdomen (lower) Symptom Intensity: severe Timing: waxes/wanes Associated Symptoms: + fevers, + nausea, No back pain, No diarrhea Note: She denies lumps, bumps, bloating, and hernia. Review of Systems See HPI for pertinent positives & negatives. A total of 10 systems reviewed and were otherwise negative. Past Medical & Surgical Medical Problems: (1) Acute kidney injury (2) Anemia (3) Breast cancer (4) HTN (hypertension) (5) Hyperlipidemia (6) Hypomagnesemia (7) Metabolic acidosis, increased anion gap Family History Cancer Social History Smoking Status: Former Smoker Alcohol Use: other Drug Use: none Housing Status: lives alone Occupation Status: employed Current/Historical Medications Scheduled Anastrozole (Anastrozole), 1 MG PO DAILY Levothyroxine Sodium (Synthroid), 88 MCG PO DAILY Scheduled PRN Tramadol (Ultram), 1 TAB PO prn PRN for Pain Allergies Coded Allergies: Exemestane (Verified Allergy, Intermediate, HIVES, 01/16/17) Physical Exam Vital Signs Date Time Temp Pulse Resp B/P (MAP) Pulse Ox O2 Delivery O2 Flow Rate FiO2 05/11/17 18:48 92 16 149/101 93 Room Air 05/11/17 17:55 93 05/11/17 16:52 78 170/89 98 Room Air 05/11/17 14:40 93 20 173/96 94 Room Air 05/11/17 13:27 86 20 164/102 99 Room Air 05/11/17 12:58 76 05/11/17 12:45 36.6 73 16 178/99 98 Room Air Physical Exam GENERAL: Patient is in moderate distress secondary to pain. HEENT: No acute trauma, normocephalic atraumatic, mucous membranes dry, no nasal congestion, no scleral icterus. NECK: No stridor, no adenopathy, no meningismus, trachea is midline. LUNGS: Scattered crackle at both bases, no wheeze, breath sounds equal. HEART: Without murmurs gallops or rubs, regular rate and rhythm. ABDOMEN: Soft, nontender, bowel sounds positive, no hernias, no peritonitis. EXTREMITIES: No cyanosis or edema, full range of motion of all the joints without pain or difficulty, no signs for acute trauma. NEUROLOGIC: Oriented x 3, no acute motor or sensory deficits, no focal weakness. SKIN: No rash, no jaundice, no diaphoresis. Medical Decision & Procedures ER Provider Diagnostic Interpretation: Radiology results as stated below per my review and radiologist interpretation: CHEST ONE VIEW PORTABLE CLINICAL HISTORY: ABDOMINAL PAIN/GI pain COMPARISON STUDY: 03/18/2015 FINDINGS: The bones soft tissues and hemidiaphragms are normal. The cardiomediastinal silhouette is normal. The lungs are clear. The pulmonary vasculature is normal. IMPRESSION: Negative chest. The above report was generated using voice recognition software. It may contain grammatical, syntax or spelling errors. Electronically signed by: Karthik Matos M.D. 05/11/2017 1:14 PM Dictated Date/Time: 05/11/2017 1:13 PM ADDENDUM Addendum: Upon further review, note is made of possible minimal infiltration adjacent to several small bowel loops. This could reflect a nonspecific enteritis. Electronically signed by: Gustabo Queen M.D. 05/11/2017 3:45 PM Dictated Date/Time: 05/11/2017 3:[address] OF THE ABDOMEN AND PELVIS WITHOUT CONTRAST CLINICAL HISTORY: Abdominal pain. Possible obstruction. COMPARISON STUDY: CT of the abdomen and pelvis March 02, 2017. TECHNIQUE: Axial images of the abdomen and pelvis were obtained without IV contrast. Images were reviewed in the axial, sagittal, and coronal planes. A dose lowering technique was utilized adhering to the principles of ALARA. FINDINGS: Visualized portions of the breasts demonstrate right retroareolar distortion and asymmetric density when compared to the left breast. There is a moderate sized hiatal hernia. The stomach is moderately distended and fluid-filled. Evaluation of the abdomen and pelvis is suboptimal on this unenhanced exam. The liver, spleen, adrenal glands, pancreas and kidneys are unremarkable. There is no biliary ductal dilatation status post cholecystectomy. There is no hydronephrosis. Submucosal fat deposition within the colon is present. There is no evidence for a bowel obstruction. The appendix is normal. No pneumatosis, free air or portal venous gas is present. There is no lymphadenopathy. A few calcified uterine fibroids are present. No suspicious osseous lesion is identified. IMPRESSION: 1. Moderately distended, fluid-filled stomach. Moderate sized hiatal hernia. 2. No evidence for a small or large bowel obstruction. Normal appendix. 3. Right retroareolar distortion and asymmetric density. This may be postsurgical given history of breast cancer. Correlation with recent breast imaging is recommended. 4. Severe osteoarthritis of the right hip with a right hip joint effusion. Electronically signed by: Gustabo Queen M.D. 05/11/2017 2:37 PM Dictated Date/Time: 05/11/2017 1:[address] ANGIOGRAM OF THE ABDOMEN AND PELVIS CLINICAL HISTORY: Generalized abdominal pain. COMPARISON STUDY: Abdominal CT scans dated 05/11/2017 and 03/02/2017. TECHNIQUE: Following the IV administration of 111 cc of Optiray 320, CT angiogram of the abdomen and pelvis was performed from the lung bases the proximal femora. Images are reviewed in the axial, sagittal, and coronal planes. 3-D MIPS images are created and assessed. IV contrast was administered without complication. A dose lowering technique was utilized adhering to the principles of ALARA. CT DOSE: 543.53 mGycm FINDINGS: Lower chest: The heart is normal in size and without pericardial effusion. The lung bases are clear. Liver: The contrast-enhanced liver is normal in size, contour, and attenuation. There is no intrahepatic or ductal dilatation. The main portal veins appear patent. Gallbladder: Surgically absent noting clips in the gallbladder fossa. Spleen: Normal in size and attenuation noting heterogeneous arterial phase enhancement. Pancreas: Atrophic and grossly unremarkable. Adrenal glands: Unremarkable. Kidneys: The contrast enhanced kidneys demonstrate cortical atrophy and are without hydronephrosis. The kidneys enhance symmetrically. Abdominal aorta and iliac arteries: The abdominal aorta is normal in course and caliber noting mild atherosclerotic calcification. The abdominal aorta and iliac arteries are widely patent bilaterally. No dissection is seen. Major branches of the abdominal aorta: The celiac trunk and inferior mesenteric arteries are widely patent. The proximal superior mesenteric artery is widely patent. There is thrombus identified within 8 branch of the superior mesenteric artery extending into the right lower quadrant, best seen on axial image #165. This is located approximately 5.5 cm from the abdominal aorta. Hepatic arterial anatomy is conventional. The splenic artery is patent. There is a single right renal artery and 2 left renal arteries. The renal arteries are widely patent bilaterally. Stomach and bowel: There is a moderate hiatal hernia. The stomach and duodenum otherwise normal in configuration. There is no bowel obstruction. Mild wall thickening is suggested within a loop of small bowel in the left lower quadrant, best seen on axial image #266. There is no significant surrounding inflammation. No pneumatosis intestinalis or portal venous gas is identified. A duodenal diverticulum is incidentally noted. The appendix is normal as visualized. Peritoneum: There is no intraperitoneal free air or abdominal ascites. Lymphadenopathy: None. Pelvic viscera: The bladder is normal as visualized. There are calcified uterine fibroids. No adnexal lesion is seen. Skeletal structures: The skeletal structures are osteopenic. There is moderate lumbosacral spondylosis and scoliosis. No lytic or blastic bony lesions are seen. IMPRESSION: 1. 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 2. Otherwise unremarkable CT angiogram of the abdominal aorta and its major branches. 3. Mild wall thickening is suggested involving a loop of small bowel in the pelvis. The appearance is suggests a nonspecific enteritis, and given the presence of thrombus within branches of the superior mesenteric artery this is likely related to ischemia 4. There is no pneumatosis intestinalis, portal venous gas, or intraperitoneal free air. 5. Moderate hiatal hernia. 6. Fibroid uterus. 7. Additional findings as above. Electronically signed by: Taye Newell M.D. 05/11/2017 5:59 PM Dictated Date/Time: 05/11/2017 5:48 PM Laboratory Results 05/11/17 13:15 Red Blood Count 4.99, Mean Corpuscular Volume 89.0, Mean Corpuscular Hemoglobin 30.1, Mean Corpuscular Hemoglobin Concent 33.8, Mean Platelet Volume 9.0, Neutrophils (%) (Auto) 89.4, Lymphocytes (%) (Auto) 4.4, Monocytes (%) (Auto) 5.8, Eosinophils (%) (Auto) 0.0, Basophils (%) (Auto) 0.1, Neutrophils # (Auto) 16.79, Lymphocytes # (Auto) 0.83, Monocytes # (Auto) 1.08, Eosinophils # (Auto) 0.00, Basophils # (Auto) 0.02 05/11/17 13:15 Test 05/11/17 13:15 05/11/17 14:35 White Blood Count 18.77 K/uL (4.8-10.8) Red Blood Count 4.99 M/uL (4.2-5.4) Hemoglobin 15.0 g/dL (12.0-16.0) Hematocrit 44.4 % (37-47) Mean Corpuscular Volume 89.0 fL (80-100) Mean Corpuscular Hemoglobin 30.1 pg (25-34) Mean Corpuscular Hemoglobin Concent 33.8 g/dl (32-36) Platelet Count 391 K/uL (130-400) Mean Platelet Volume 9.0 fL (7.4-10.4) Neutrophils (%) (Auto) 89.4 % Lymphocytes (%) (Auto) 4.4 % Monocytes (%) (Auto) 5.8 % Eosinophils (%) (Auto) 0.0 % Basophils (%) (Auto) 0.1 % Neutrophils # (Auto) 16.79 K/uL (1.4-6.5) Lymphocytes # (Auto) 0.83 K/uL (1.2-3.4) Monocytes # (Auto) 1.08 K/uL (0.11-0.59) Eosinophils # (Auto) 0.00 K/uL (0-0.5) Basophils # (Auto) 0.02 K/uL (0-0.2) RDW Standard Deviation 43.6 fL (36.4-46.3) RDW Coefficient of Variation 13.3 % (11.5-14.5) Immature Granulocyte % (Auto) 0.3 % Immature Granulocyte # (Auto) 0.05 K/uL (0.00-0.02) Prothrombin Time 11.0 SECONDS (9.0-12.0) Prothromb Time International Ratio 1.0 (0.9-1.1) Activated Partial Thromboplast Time 26.7 SECONDS (21.0-31.0) Partial Thromboplastin Ratio 1.0 Anion Gap 11.0 mmol/L (3-11) Est Creatinine Clear Calc Drug Dose 48.1 ml/min Estimated GFR () 66.3 Estimated GFR (Non- 57.2 BUN/Creatinine Ratio 18.1 (10-20) Lactic Acid Level 2.2 mmol/L (0.4-2.0) Calcium Level 9.5 mg/dl (8.5-10.1) Magnesium Level 1.9 mg/dl (1.8-2.4) Total Bilirubin 0.4 mg/dl (0.2-1) Aspartate Amino Transf (AST/SGOT) 23 U/L (15-37) Alanine Aminotransferase (ALT/SGPT) 25 U/L (12-78) Alkaline Phosphatase 81 U/L (45-117) Troponin I < 0.015 ng/ml (0-0.045) Total Protein 8.2 gm/dl (6.4-8.2) Albumin 3.8 gm/dl (3.4-5.0) Globulin 4.4 gm/dl (2.5-4.0) Albumin/Globulin Ratio 0.9 (0.9-2) Lipase 115 U/L (73-393) Thyroid Stimulating Hormone (TSH) 7.430 uIu/ml (0.300-4.500) Free Thyroxine 0.86 ng/dl (0.80-1.60) Urine Color YELLOW Urine Appearance CLEAR (CLEAR) Urine pH 6.5 (4.5-7.5) Urine Specific [place] 1.021 (1.000-1.030) Urine Protein TRACE (NEG) Urine Glucose (UA) NEG (NEG) Urine Ketones TRACE (NEG) Urine Occult Blood TRACE (NEG) Urine Nitrite NEG (NEG) Urine Bilirubin NEG (NEG) Urine Urobilinogen NEG (NEG) Urine Leukocyte Esterase SMALL (NEG) Urine WBC (Auto) 5-10 /hpf (0-5) Urine RBC (Auto) 5-10 /hpf (0-4) Urine Hyaline Casts (Auto) 1-5 /lpf (0-5) Urine Epithelial Cells (Auto) 20-30 /lpf (0-5) Urine Bacteria (Auto) NEG (NEG) Laboratory results reviewed by me. Medications Administered Medications (Trade) Dose Ordered Sig/Vega Route Start Time Stop Time Status Last Admin Dose Admin Sodium Chloride 500 ml @ 999 mls/hr Q31M STAT IV 05/11/17 12:55 05/11/17 13:25 DC 05/11/17 13:29 999 MLS/HR Promethazine HCl (Phenergan Inj) 12.5 mg NOW STAT IV 05/11/17 12:55 05/11/17 13:01 DC 05/11/17 13:28 12.5 MG Sodium Chloride 1,000 ml @ 200 mls/hr Q5H STAT IV 05/11/17 12:55 05/11/17 17:54 DC 05/11/17 13:29 200 MLS/HR Ketorolac Tromethamine (Toradol Inj) 30 mg NOW STAT IV 05/11/17 12:55 05/11/17 13:02 DC 05/11/17 13:29 30 MG Hydromorphone HCl (Dilaudid Inj) 0.5 mg Q15M PRN IV 05/11/17 13:00 05/25/17 12:59 05/11/17 19:23 0.5 MG Heparin Sodium/ Dextrose 500 ml @ 20 mls/hr Q24H PRN IV 05/11/17 18:30 06/10/17 18:29 05/11/17 18:45 20 MLS/HR Heparin Sodium (Porcine) (Heparin Sq 5000 Unit/0.5ml) 5,000 unit NOW ONCE IV 05/11/17 18:30 05/11/17 18:31 DC 05/11/17 18:44 5,000 UNIT Lorazepam (Ativan Inj) 0.5 mg NOW STAT IV 05/11/17 18:29 05/11/17 18:30 DC 05/11/17 18:42 0.5 MG ECG Indication: abdominal pain Rate (beats per minute): 68 Rhythm: atrial fibrillation Findings: nonspecific-ST abn, no acute ischemic change ED Course 1250: The patient was evaluated in room A02. A complete history and physical exam was performed. 1255: Ordered Toradol Inj 30 mg IV, .nss 1000 200, Phenergan Inj 12.5 mg IV 1300: Dilaudid Inj 0.5 mg IV 1502: I reevaluated the patient and updated her on her current exam findings. 180: I discussed the patient's case with Dr. Draper, [facility] General Surgery. He said without vascular surgery begin here, the patient will need to be transferred. 182: I discussed the patient's case with Dr. Carrasco, [facility]. He said fly the patient to [place] via [facility] and receive further treatment. 1825: Upon reexamination the patient is resting. I discussed results and treatment plan with the patient. I discussed the two consults that I made. She verbalizes agreement and understanding. The patient will be evaluated for further management. 1829: Ordered Ativan Inj 0.5 mg IV 1830: Ordered Heparin Sodium 5000 unit IV, Heparin Sodium/Dextrose 500 ml @ 20 mls/hr Medical Decision Differential diagnosis includes: mesenteric ischemia, diverticulitis, appendicitis, bowel obstruction, biliary colic, pneumonia, UTI There is a moderate leukocytosis at 18,000, this could be consistent with infection or the stress of her current situation. No worrisome anemia. No significant electrolyte abnormality or kidney failure. There was no hepatitis or pancreatitis. Urinalysis shows contamination, no obvious infection. Lactic acid level is mildly elevated consistent with possible mesenteric ischemia versus dehydration. Chest film does not show pneumonia or free air. EKG shows A. fib which is rate controlled, no acute ischemia. Cardiac enzyme testing times one is not consistent with acute cardiac injury. There was no coagulopathy. CT of the abdomen and pelvis without contrast did not show any evidence for bowel obstruction or for an acute surgical process-a possible enteritis was seen. Some changes to one breast were noted-the patient does have a history of breast cancer. 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 There was some bowel ischemia suggested distally. The patient received IV saline, IV Toradol, IV Dilaudid and IV Phenergan. She is feeling improved. With the findings of mesenteric ischemia, she was placed on IV heparin. She required IV Ativan for some sedation/anxiety. I did speak with our general surgeon, the patient is in need of transfer. I spoke with the vascular surgeon at [facility]. The patient is being transferred to them by medical helicopter. The transfer paperwork has been signed. The patient is aware of the need for transfer. Blood Pressure Screening Patient's blood pressure: Elevated blood pressure Patient will be evaluated during further care. Consults Time Called: 1800 Consulting Physician: Dr. Draper, [facility] General Surgery Returned Call: 1806 I discussed the patient's case with Dr. Draper, [facility] General Surgery. He said without vascular surgery begin here, the patient will need to be transferred. Additional Consults: Time Called: 1808 Consulted Physician: Dr. Carrasco, [facility] Returned Call: 1821 Additional Comments: I discussed the patient's case with Dr. Carrasco, [facility]. He said fly the patient to [place] via [facility] and receive further treatment. Impression Primary Impression: Mesenteric ischemia Additional Impressions: Atrial fibrillation Diffuse abdominal pain Critical Care I have personally spent greater than 35 minutes of critical care time in the direct management of this patient. This includes bedside care, interpretation of diagnostic studies, and testing, discussion with consultants, patient, and family members, and other required patient management activities. This 35 minutes is in excess of all separately billable procedures. Scribe Attestation The scribe's documentation has been prepared under my direction and personally reviewed by me in its entirety. I confirm that the note above accurately reflects all work, treatment, procedures, and medical decision making performed by me. Departure Information Dispostion Transfer Acute Care Facility Referrals Travis Valencia M.D. (PCP) Patient Instructions [facility] Problem Qualifiers
[2017-05-11] MEDS: HYDROmorphone INJ 2 MG/ML SYR/VIAL IV PRN ×2 (13:29→19:23)
[2017-05-11 13:31] LABS: BASO % 0.1 %; BASO ABS # 0.02 K/uL (0-0.2); COMPLETE YES; HEMATOCRIT 44.4 % (37-47); IG% 0.3 %; LYMPH % 4.4 %; LYMPH ABS # 0.83 K/uL (1.2-3.4); MEAN CORPUSCULAR HEMOGLOBIN 30.1 pg (25-34); MEAN CORPUSCULAR HGB CONC 33.8 g/dl (32-36); MONO % 5.8 %; NEUT % 89.4 %; PLATELET COUNT 391 K/uL (130-400); RED BLOOD COUNT 4.99 M/uL (4.2-5.4); WHITE BLOOD COUNT 18.77 K/uL (4.8-10.8)
[2017-05-11 13:47] LABS: ALT/SGPT 25 U/L (12-78); BLOOD UREA NITROGEN 18 mg/dl (7-18); BUN/CREATININE RATIO 18.1 (10-20); CALCIUM 9.5 mg/dl (8.5-10.1); CARBON DIOXIDE 24 mmol/L (21-32); CHLORIDE 106 mmol/L (98-107); CREATININE 0.98 mg/dl (0.60-1.20); GLUCOSE 136 mg/dl (70-99); MAGNESIUM 1.9 mg/dl (1.8-2.4); POTASSIUM 3.5 mmol/L (3.5-5.1); SODIUM 141 mmol/L (136-145)
[2017-05-11 13:56] LABS: ALB/GLOB RATIO 0.9 (0.9-2); ALKALINE PHOSPHATASE 81 U/L (45-117); AST/SGOT 23 U/L (15-37)
--- NOTE | 2017-05-11 14:38 | DIAGNOSTIC IMAGING REPORT ---
ADDENDUM Addendum: Upon further review, note is made of possible minimal infiltration adjacent to several small bowel loops. This could reflect a nonspecific enteritis. Electronically signed by: Gustabo Queen M.D. 05/11/2017 3:45 PM Dictated Date/Time: 05/11/2017 3:[address] OF THE ABDOMEN AND PELVIS WITHOUT CONTRAST CLINICAL HISTORY: Abdominal pain. Possible obstruction. COMPARISON STUDY: CT of the abdomen and pelvis March 02, 2017. TECHNIQUE: Axial images of the abdomen and pelvis were obtained without IV contrast. Images were reviewed in the axial, sagittal, and coronal planes. A dose lowering technique was utilized adhering to the principles of ALARA. FINDINGS: Visualized portions of the breasts demonstrate right retroareolar distortion and asymmetric density when compared to the left breast. There is a moderate sized hiatal hernia. The stomach is moderately distended and fluid-filled. Evaluation of the abdomen and pelvis is suboptimal on this unenhanced exam. The liver, spleen, adrenal glands, pancreas and kidneys are unremarkable. There is no biliary ductal dilatation status post cholecystectomy. There is no hydronephrosis. Submucosal fat deposition within the colon is present. There is no evidence for a bowel obstruction. The appendix is normal. No pneumatosis, free air or portal venous gas is present. There is no lymphadenopathy. A few calcified uterine fibroids are present. No suspicious osseous lesion is identified. IMPRESSION: 1. Moderately distended, fluid-filled stomach. Moderate sized hiatal hernia. 2. No evidence for a small or large bowel obstruction. Normal appendix. 3. Right retroareolar distortion and asymmetric density. This may be postsurgical given history of breast cancer. Correlation with recent breast imaging is recommended. 4. Severe osteoarthritis of the right hip with a right hip joint effusion. Electronically signed by: Gustabo Queen M.D. 05/11/2017 2:37 PM Dictated Date/Time: 05/11/2017 1:58 PM
[2017-05-11 15:09] LABS: URINE APPEARANCE CLEAR (CLEAR); URINE BILIRUBIN NEG (NEG); URINE COLOR YELLOW; URINE EPITHELIAL CELL AUTO 20-30 /lpf (0-5); URINE NITRITE NEG (NEG); URINE PH 6.5 (4.5-7.5); URINE SPECIFIC GRAVITY 1.021 (1.000-1.030); UROBILINOGEN NEG (NEG); ZZUR CULT IF INDIC CLEAN CATCH NO
[2017-05-11 15:11] LABS: MANUAL MICROSCOPIC REQUIRED? NO; REVIEW REQ? NO
[2017-05-11] MEDS ORDERED: OPTIRAY 320 IV PRN (15:15)
--- NOTE | 2017-05-11 18:00 | DIAGNOSTIC IMAGING REPORT ---
CT ANGIOGRAM OF THE ABDOMEN AND PELVIS CLINICAL HISTORY: Generalized abdominal pain. COMPARISON STUDY: Abdominal CT scans dated 05/11/2017 and 03/02/2017. TECHNIQUE: Following the IV administration of 111 cc of Optiray 320, CT angiogram of the abdomen and pelvis was performed from the lung bases the proximal femora. Images are reviewed in the axial, sagittal, and coronal planes. 3-D MIPS images are created and assessed. IV contrast was administered without complication. A dose lowering technique was utilized adhering to the principles of ALARA. CT DOSE: 543.53 mGycm FINDINGS: Lower chest: The heart is normal in size and without pericardial effusion. The lung bases are clear. Liver: The contrast-enhanced liver is normal in size, contour, and attenuation. There is no intrahepatic or ductal dilatation. The main portal veins appear patent. Gallbladder: Surgically absent noting clips in the gallbladder fossa. Spleen: Normal in size and attenuation noting heterogeneous arterial phase enhancement. Pancreas: Atrophic and grossly unremarkable. Adrenal glands: Unremarkable. Kidneys: The contrast enhanced kidneys demonstrate cortical atrophy and are without hydronephrosis. The kidneys enhance symmetrically. Abdominal aorta and iliac arteries: The abdominal aorta is normal in course and caliber noting mild atherosclerotic calcification. The abdominal aorta and iliac arteries are widely patent bilaterally. No dissection is seen. Major branches of the abdominal aorta: The celiac trunk and inferior mesenteric arteries are widely patent. The proximal superior mesenteric artery is widely patent. There is thrombus identified within 8 branch of the superior mesenteric artery extending into the right lower quadrant, best seen on axial image #165. This is located approximately 5.5 cm from the abdominal aorta. Hepatic arterial anatomy is conventional. The splenic artery is patent. There is a single right renal artery and 2 left renal arteries. The renal arteries are widely patent bilaterally. Stomach and bowel: There is a moderate hiatal hernia. The stomach and duodenum otherwise normal in configuration. There is no bowel obstruction. Mild wall thickening is suggested within a loop of small bowel in the left lower quadrant, best seen on axial image #266. There is no significant surrounding inflammation. No pneumatosis intestinalis or portal venous gas is identified. A duodenal diverticulum is incidentally noted. The appendix is normal as visualized. Peritoneum: There is no intraperitoneal free air or abdominal ascites. Lymphadenopathy: None. Pelvic viscera: The bladder is normal as visualized. There are calcified uterine fibroids. No adnexal lesion is seen. Skeletal structures: The skeletal structures are osteopenic. There is moderate lumbosacral spondylosis and scoliosis. No lytic or blastic bony lesions are seen. IMPRESSION: 1. 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 2. Otherwise unremarkable CT angiogram of the abdominal aorta and its major branches. 3. Mild wall thickening is suggested involving a loop of small bowel in the pelvis. The appearance is suggests a nonspecific enteritis, and given the presence of thrombus within branches of the superior mesenteric artery this is likely related to ischemia 4. There is no pneumatosis intestinalis, portal venous gas, or intraperitoneal free air. 5. Moderate hiatal hernia. 6. Fibroid uterus. 7. Additional findings as above. Electronically signed by: Taye Newell M.D. 05/11/2017 5:59 PM Dictated Date/Time: 05/11/2017 5:48 PM
[2017-05-11] MEDS ORDERED: LORAZEPAM 2 MG/ML 1 ML VIAL IV STA (18:29)
[2017-05-11] MEDS ORDERED: HEPARIN SOD 5000 UNIT/0.5 ML CARP IV ONE (18:30)
[2017-05-11] MEDS ORDERED: HEPARIN 25,000 UNIT/500ML D5W 500 ML IV PRN (18:30)
[2017-05-11 18:48] VITALS: BP 149/101; PULSE 92; O2SAT 93
[2017-05-11] MEDS ORDERED: HYDROmorphone INJ 0.5 MG/0.5 ML SYR ONE (19:22)
== END 2017-05-11 19:15 | disposition short-term general hospital (02) ==
LOC: EDBD 12:42 → C.EDA 12:44
DX: K55.059 Acute (reversible) ischemia of intestine, part and extent unspecified (principal); I48.91 Unspecified atrial fibrillation; R10.9 Unspecified abdominal pain; D64.9 Anemia, unspecified; I10 Essential (primary) hypertension; E78.5 Hyperlipidemia, unspecified; E83.42 Hypomagnesemia; Z87.891 Personal history of nicotine dependence

== ENCOUNTER → 2017-05-18 | Outpatient (CLI) | payer OTHER, BC ==
[~2017-05-18] MED LIST changes: -MCRK20 PO
[2017-05-18 14:54] LABS: INR 1.3 (0.9-1.1)
== END | disposition home or self-care (01) ==
LOC: C.LAB1850 13:15
PROVIDERS: ATTEND Physician Assistant
DX: I48.91 Unspecified atrial fibrillation (principal)

== ENCOUNTER → 2017-07-11 | Outpatient (CLI) | payer OTHER, BC ==
[2017-07-11 12:19] LABS: BASO % 0.6 %; BASO ABS # 0.04 K/uL (0-0.2); COMPLETE YES; EOS % 3.4 %; HEMATOCRIT 40.2 % (37-47); IG% 0.3 %; LYMPH % 27.2 %; LYMPH ABS # 1.86 K/uL (1.2-3.4); MEAN CELL VOLUME 87.8 fL (80-100); MEAN CORPUSCULAR HEMOGLOBIN 29.5 pg (25-34); MEAN CORPUSCULAR HGB CONC 33.6 g/dl (32-36); MEAN PLATELET VOLUME 9.3 fL (7.4-10.4); MONO % 9.6 %; NEUT % 58.9 %; PLATELET COUNT 356 K/uL (130-400); RED BLOOD COUNT 4.58 M/uL (4.2-5.4); WHITE BLOOD COUNT 6.84 K/uL (4.8-10.8)
[2017-07-11 12:32] LABS: URINE APPEARANCE CLEAR (CLEAR); URINE BILIRUBIN NEG (NEG); URINE COLOR YELLOW; URINE NITRITE NEG (NEG); URINE SPECIFIC GRAVITY 1.019 (1.000-1.030); UROBILINOGEN NEG (NEG)
[2017-07-11 12:38] LABS: AST/SGOT 9 U/L (15-37); BLOOD UREA NITROGEN 18 mg/dl (7-18); BUN/CREATININE RATIO 18.5 (10-20); CALCIUM 9.1 mg/dl (8.5-10.1); CARBON DIOXIDE 18 mmol/L (21-32); CHLORIDE 111 mmol/L (98-107); GLUCOSE 88 mg/dl (70-99); POTASSIUM 3.6 mmol/L (3.5-5.1); SODIUM 139 mmol/L (136-145)
[2017-07-11 12:43] LABS: MANUAL MICROSCOPIC REQUIRED? NO; REVIEW REQ? NO
[2017-07-11 12:56] LABS: ALB/GLOB RATIO 0.9 (0.9-2); ALKALINE PHOSPHATASE 84 U/L (45-117); ALT/SGPT 20 U/L (12-78)
== END | disposition home or self-care (01) ==
LOC: C.LAB1850 10:47
PROVIDERS: ATTEND Internal Medicine
DX: K55.069 Acute infarction of intestine, part and extent unspecified (principal); E03.9 Hypothyroidism, unspecified

== ENCOUNTER → 2017-10-18 | Outpatient (CLI) | payer OTHER, BC ==
[~2017-10-18] MED LIST changes: +ACET-1256 PO; +APIX1TAB3 PO; +BIOT1CAP8 PO; +CEPH500C PO; +CHOL1000 PO; +CLB100 PO; +CYAN100020 PO; +METO50TA8 PO; +PRLSR20 PO
[2017-10-18 16:27] LABS: BLOOD UREA NITROGEN 21 mg/dl (7-18); CALCIUM 9.7 mg/dl (8.5-10.1); CARBON DIOXIDE 24 mmol/L (21-32); CREATININE 1.16 mg/dl (0.60-1.20); GLUCOSE 95 mg/dl (70-99); POTASSIUM 3.7 mmol/L (3.5-5.1); SODIUM 135 mmol/L (136-145)
== END | disposition home or self-care (01) ==
LOC: C.LAB1850 13:23
PROVIDERS: ATTEND Internal Medicine
DX: N18.3 Chronic kidney disease, stage 3 (moderate) (principal); E03.9 Hypothyroidism, unspecified; E53.8 Deficiency of other specified B group vitamins

== ENCOUNTER → 2017-10-20 | Outpatient (CLI) | payer OTHER, BC ==
[~2017-10-20] MED LIST changes: -ACET-1256 PO; -APIX1TAB3 PO; -BIOT1CAP8 PO; -CEPH500C PO; -CHOL1000 PO; -CLB100 PO; -CYAN100020 PO; -METO50TA8 PO; -PRLSR20 PO
== END | disposition home or self-care (01) ==
LOC: C.LABSPEC 17:48
PROVIDERS: ATTEND Internal Medicine
DX: N17.9 Acute kidney failure, unspecified (principal)

== ENCOUNTER → 2018-02-27 | Outpatient (CLI) | payer OTHER, BC ==
[2018-02-27 16:32] LABS: HEMATOCRIT 39.7 % (37-47); HEMOGLOBIN 13.4 g/dL (12.0-16.0); MEAN CORPUSCULAR HGB CONC 33.8 g/dl (32-36); MEAN PLATELET VOLUME 9.8 fL (7.4-10.4); PLATELET COUNT 279 K/uL (130-400); RED CELL DISTRIBUTION WIDTH CV 13.3 % (11.5-14.5); RED CELL DISTRIBUTION WIDTH SD 43.4 fL (36.4-46.3); WHITE BLOOD COUNT 7.67 K/uL (4.8-10.8)
[2018-02-27 17:38] LABS: ALT/SGPT 24 U/L (12-78); AST/SGOT 13 U/L (15-37); BLOOD UREA NITROGEN 19 mg/dl (7-18); CALCIUM 9.5 mg/dl (8.5-10.1); CARBON DIOXIDE 20 mmol/L (21-32); GLUCOSE 80 mg/dl (70-99); POTASSIUM 3.8 mmol/L (3.5-5.1); SODIUM 140 mmol/L (136-145)
[2018-02-27 17:49] LABS: CHOLESTEROL 278 mg/dl (0-200); LDL CHOLESTEROL CALCULATED 163 mg/dl
== END | disposition home or self-care (01) ==
LOC: C.LAB1850 14:56
PROVIDERS: ATTEND Internal Medicine
DX: I48.0 Paroxysmal atrial fibrillation (principal); E03.9 Hypothyroidism, unspecified; I10 Essential (primary) hypertension

== ENCOUNTER 2022-01-26 05:19 | Observation (INO) ==
--- NOTE | 2022-01-21 15:35 | Anesthesiology Consultation ---
Date of Service January 21, 2022 Assessment & Plan (1) Encounter for pre-operative examination: - will need cardiology pre-op clearance. - cardiology office visit : "...Near syncope: She has had several somewhat worrisome episodes that sound like hypotension and she has not been able to take her blood pressure during them, in part because she was not near her blood pressure cuff. The heart rate does not appear to be terribly abnormal based on her pulse reading, but they are quite distinct and she does not recall having them before...notes that the pulse is irregular at those times. Perhaps there is a pulse deficit and the heart rate is actually much faster, neck case would want to increase her rate control medications but other had the measurements she is getting are somewhat low and if it is hypotension from relative bradycardia I do not want to increase rate control medications. I think we need to record the episodes and I am going to set up a 30-day MCOT monitor to try to obtain those readings. This will also give allow us an idea of her atrial fibrillation burden which we really do not know...was in atrial fibrillation at her last visit but had no symptoms, so it seems a little unlikely that she would have significant episodes just from atrial fibrillation but it is possible. We will be able to get an idea of her burden and whether she is now having symptoms during atrial fibrillation from the MCOT monitor. Anticoagulation: She takes 5 mg twice a day of Eliquis which is the correct dose and I recommended she continue it..." - left upper extremity limb restriction. - COVID screening: Per box cutter on 01/21/2022: Travel screen negative, no known COVID-19 positive contacts or current COVID-19 related symptoms in past 2 weeks. Patient vaccinated. Surgeon arranging preop COVID testing, scheduled 01/24/2022. Awaiting results. Chart Review Chart Review: Pending: Refer to Additional Notes / Consult section and Patient NOT seen in Pre Admission Testing History Surgery Operation Date: 01/26/22 07:00 Proposed Procedures p Right Total Hip Replacement - Lito Duncan MD Surgery re-scheduled since 07/2021 anesthesia review. Height/Weight Height: 5 ft 3 in Weight: 66.224 kg Allergies Allergy/AdvReac Type Severity Reaction Status Date / Time exemestane Allergy Intermediate HIVES Verified 01/21/22 13:56 Aromasin TABS Allergy Severe Hives Uncoded 01/21/22 13:56 Medications Home Medications Medication Instructions Recorded Confirmed Last Taken cholecalciferol (vitamin D3) 25 1,000 units PO QAM 05/30/19 01/21/22 08/25/20 mcg (1,000 unit) capsule cyanocobalamin (vitamin B-12) 1,000 mcg PO QAM tab 05/30/19 01/21/22 08/25/20 1,000 mcg tablet,extended release celecoxib 100 mg capsule 100 mg PO BID #180 cap 06/22/21 01/21/22 Unknown metoprolol succinate 50 mg 50 mg PO QAM #90 tab 07/06/21 01/21/22 Unknown tablet,extended release 24 hr apixaban 5 mg tablet (Eliquis) 5 mg PO BID #60 tab 09/07/21 01/21/22 Unknown levothyroxine 100 mcg tablet 100 mcg PO QAM #90 tab 09/07/21 01/21/22 Unknown omeprazole 20 mg capsule,delayed 40 mg PO QAM #180 cap 09/07/21 01/21/22 Unknown release biotin 1 mg tablet 1 mg PO Q2D 01/21/22 01/21/22 Unknown Past Medical History Medical History Anemia Patient denies Arthritis Atrial fibrillation Follows with [place] [facility], on Eliquis/Metoprolol Breast cancer 10 yrs ago > LEFT > Radiation, no chemo per patient Chronic back pain CKD (chronic kidney disease), stage III Difficult intravenous access Dyslipidemia Esophageal stenosis GERD (gastroesophageal reflux disease) Hiatal hernia with GERD Well controlled, stable, denies issues laying flat. HTN (hypertension) Well controlled, stable. 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, follows with [facility] [place] On anticoagulant therapy Osteopenia Other specified arthritis, right hip Vitamin B12 deficiency Past Family History Family History Family/Other Breast cancer Father Pancreatic cancer Colorectal cancer Hypertension Mother Myocardial infarction questionable Hypertension Stroke Grandmother Myocardial infarction Uncle Myocardial infarction Other No family history of adverse response to anesthesia Denies family history of Ovarian cancer Prostate cancer Diabetes Lung cancer Past Surgical History Surgical History H/O oophorectomy unilateral History of cataract surgery BL History of colonoscopy History of esophagogastroduodenoscopy (EGD) History of lumpectomy of both breasts Hx laparoscopic cholecystectomy Hx of lymph node excision LEFT> AVOID LEFT ARM USE Social History Smoking Status: Former smoker tobacco type: cigarettes Do You Dip or Chew Tobacco: No Smoking End Date: QUIT 25 YRS AGO Hx Alcohol Use: Yes Alcohol type: wine and hard liquor alcohol intake frequency: a few times a week Hx Substance Use: No substance use type: does not use Review of Systems multiple caps upper and lower front and sides. Denies implants or bridges. Denies missing, loose or chipped teeth. Lab Results Anesthesia Preop Results Results Anesthesia Widget: WBC 7.07 K/uL (4.8-10.8) 12/02/21 Hgb 14.2 g/dL (12.0-16.0) 12/02/21 Hct 44.4 % (37-47) 12/02/21 Plt 294 K/uL (130-400) 12/02/21 Na 140 mmol/L (136-145) 12/02/21 K 4.2 mmol/L (3.5-5.1) 12/02/21 Cl 109 mmol/L (98-107) H 12/02/21 CO2 21 mmol/L (21-32) 12/02/21 BUN 20 mg/dl (6-23) 12/02/21 Creat 0.94 mg/dl (0.6-1.2) 12/02/21 Glucose Level 85 mg/dl (70-99(Fasting)) 12/02/21 PT 11.8 Seconds (9.0-12.0) 12/02/21 INR 1.2 (0.9-1.1) H 12/02/21 Blood Type B Negative 12/02/21 Antibody Screen NEGATIVE 12/02/21 Testing Electrocardiogram Date: 11/25/21 NSR, rate [address] abnormality Chest X-Ray Date: 07/28/21 FINDINGS: The lungs are clear. The heart is normal in size. No pleural effusions. No pneumothorax. There are surgical clips within the left axilla. Moderate hiatus hernia. This has increased in size. IMPRESSION: 1. No acute process within the chest. 2. Moderate hiatus hernia. Other Testing Event monitor 12/24/2021 Frequent PAF, total burden 28%
[2022-01-26] MEDS ORDERED: ceFAZolin 1000MG 1,000 MG/7.5 ML SYR IV SCH (06:00)
[2022-01-26] MEDS ORDERED: LR 500ML BOLUS, THEN 15ML/HR IV SCH (06:00)
[2022-01-26] MEDS ORDERED: LR 60ML/HR IV SCH (06:00)
[2022-01-26] MEDS ORDERED: BUPIVACAINE 0.5 % 5 MG/1 ML PF 10ML VIAL ONE (06:31)
[2022-01-26] MEDS ORDERED: MIDAZOLAM HCL 1 MG/ML 2ML VIAL ONE ×2 (06:42→06:43)
[2022-01-26] MEDS ORDERED: fentaNYL citrate 100 MCG/2 ML VIAL ONE (06:43)
[2022-01-26] MEDS ORDERED: BUPIVACAINE 0.5 % 5 MG/1 ML MPF 30ML VIAL ONE ×2 (06:44→07:25)
[2022-01-26] MEDS ORDERED: EPINEPHrine INJ 1 MG/ML AMP ONE ×2 (06:44→07:26)
[2022-01-26] MEDS ORDERED: MoRPHine SULFATE PF 1 MG/ML 10 ML AMP/VIAL ONE (06:50)
[2022-01-26] MEDS ORDERED: ACETAMINOPHEN 500 MG TAB ONE (06:51)
[2022-01-26] MEDS ORDERED: FAMOTIDINE 20 MG TAB ONE (06:51)
[2022-01-26] MEDS ORDERED: TRANEXAMIC ACID / 0.7% NACL 1000MG/100ML BAG IV ONE (06:52)
--- NOTE | 2022-01-26 06:56 | History & Physical Bridge Note ---
Date of Service January 26, 2022 History & Physical Bridge Note I have examined the patient, reviewed the History & Physical and in the interval since the performance of the History & Physical I have noted the following changes of clinical significance: no changes noted
[2022-01-26] MEDS ORDERED: HYDROmorphone INJ 2 MG/ML SYR/VIAL IV PRN (07:31)
[2022-01-26] MEDS ORDERED: ATROPINE SULFATE 0.1 MG/ML 10ML SYR IV PRN (07:31)
[2022-01-26] MEDS ORDERED: fentaNYL citrate 100 MCG/2 ML VIAL IV PRN (07:31)
[2022-01-26] MEDS ORDERED: PROMETHAZINE HCL 12.5 MG in SODIUM CHLORIDE 0.9% 50 ML IV PRN (07:31)
[2022-01-26] MEDS ORDERED: ePHEDrine sulfate 50 MG/ML AMP IV PRN (07:31)
[2022-01-26] MEDS ORDERED: ONDANSETRON INJ 2 MG/ML 2 ML VIAL IV PRN ×2 (07:31→10:09)
[2022-01-26] MEDS ORDERED: LIDOCAINE 2% 2 ML VIAL/AMP(20MG/ML) INFIL ONE (07:45)
[2022-01-26] MEDS ORDERED: PROPOFOL IV EMULSION 10 MG/ML 20 ML VIAL IV ONE (07:45)
[2022-01-26] MEDS ORDERED: GLYCOPYRROLATE 0.2 MG/ML VIAL ONE (07:45)
[2022-01-26] MEDS ORDERED: ePHEDrine sulfate 50 MG/ML SYR ONE (08:06)
[2022-01-26] MEDS ORDERED: PHENYLEPHRINE 100MCG/ML 5ML SYR ONE (08:06)
--- NOTE | 2022-01-26 08:37 | Operative Report ---
PG Post Operative Report Pre & Post Diagnosis Operation Date: 01/26/22 07:00 Pre-Op Diagnosis: Right Hip Osteoarthritis Post-Op Diagnosis: Right Hip Osteoarthritis I identified the patient and participated in the time-out.: Yes Procedure Operation Date: 01/26/22 07:00 Actual Procedures p Right Total Hip Replacement(Right) - Lito Duncan MD Surgeon Lito Duncan MD Unemployment Insurance Director Gerald Mane PA-C Estimated Blood Loss 200 Findings Consistent with Post-Op Diagnosis Operative findings were advanced right hip DJD. She had extensive grade 4 ergx-in-lzyo disease the femoral head and acetabulum. Moderate-sized joint effusion. Fluids 1000 cc Specimens Right femoral head sent for pathology Drains None Anesthesia Type Spinal MAC Complications none Disposition Accompanied Patient To Recovery: Yes Indications Patient is a 76-year-old female has had a long history of right hip pain discomfort describes gotten worse over time. Also has no history of back problems. She been through extensive conservative treatment which became less successful over time. She came up more debilitated by both her back and her hip pain. She elected proceed with total hip arthroplasty. She has been scheduled for this previous then fell and broke her wrist and had postponed. That the Covid epidemic then further postponed this and she now presents for surgical management. Description of Procedure Operative implants consist of: 1. Biomet G7 size 54 mm acetabular shell. 2. Marston hole peoplesoft hcm developer. 3. 6.5 cancellous acetabular screws were at 35 mm in length 1 to 20 mm length. 4. Highly cross-linked polyethylene liner with a 54 mm outer diameter and 36 mm inner diameter. 5. Daljit Corail size 1125 degree angle short neck femoral stem. 6. +5/36 mm ceramic articular ball. The patient was taken to the operating, identified, placed on the operating table supine position protectors were properly padded. IV antibiotics tried by anesthesia team. A spinal anesthetic had been implemented in the holding area. A Salmon catheter was placed in sterile fashion. The patient then placed in the left lateral cubitus position. An axillary roll was placed. A Stulberg hip positioner was used for positioning. The right hip and leg were then prepped and draped in usual sterile fashion. A posterior lateral approach to the right hip was then performed to a curvilinear incision centered over the greater trochanter. Sharp dissection was carried through subcutaneous this down to level the IT band gluteal fascia the IT band gluteal fascia were incised longitudinally in line with skin incision. The underlying greater bursa was excised. The piriformis and external rotators along with the posterior hip joint capsule were then released from the posterior aspect of the hip as a single layer. Hip was internally rotated and dislocated. Femoral neck osteotomy cut was made with Final Cut about a centimeter above the lesser trochanter. Femoral head was removed and sent for pathology. The femur was retracted anteriorly. Attention drawn the acetabulum. The acetabular labrum was excised to the pulmonary fat was excised. Sequential reaming the acetabular was then performed begin with size 43 and progressing up to 53. I did reamed a little bit with a 54 reamer and then placed a 54 mm cup in about 40 degrees lateral opening and 20 degrees of anteversion. It was fixed with two 6.5 cancellous acetabular screws. A small anterior osteophyte was removed. A trial liner was placed. Attention drawn the femur. The proximal femur was entered with a cookie-cutter followed by canal finder. Then broached begin the size 8 and progressing up to 11. We got excellent fit at 11. We then trialed the hip. The standard offset implant just create created too much soft tissue tension. Therefore elected to use a short neck implant. We trialed this in the +5 articular ball provide full stability in full extension and external rotation and flexion to 90 degrees internal rotation over 50 degrees. Leg length seemed equal. Soft tissue tension seemed appropriate. We elect to place these implants. All trial implants were removed. An apex hole peoplesoft hcm developer was placed but highly cross-linked polyethylene liner was placed. A size 11 KLA short neck 125 degree angle stem was impacted in position. +5/36 mm ceramic articular ball was placed. Hip was located once again found to be stable. Attention drawn toward closing. The wounds irrigated with copious amounts of pulsatile lavage solution. I did inject locally with 50 cc of half percent Marcaine with epinephrine. The posterior capsule and external rotators were then repaired through drill holes in the posterior trochanter as a single layer with #2 Tycron suture. The IT band gluteal fascia then closed in 1 PDS suture in a running fashion the subcutaneous tissues then closed in 2 layers the deep layer #1 Vicryl suture and subcutaneous tissues with 2-0 Dexon suture in a buried interrupted fashion. Skin was closed skin treasure. Leg was then cleaned and dried a sterile dressing with Xeroform, 4 x 4's, sterile ABD pad and foam tape were applied. The patient then transferred to the recovery room in stable condition. Patient tolerated procedure well and there were no complications. Gerald Mane, my physician field research assistant, was present for the entire procedure. His assistance was essential and required for appropriate patient positioning, prepping and draping, surgical exposure, performing the technical details of the operation, placement the implants, closure of the wound, and placement of the sterile bandage. I attest to the content of the Intraoperative Record and any orders documented therein. Any exceptions are noted below.
--- NOTE | 2022-01-26 09:10 | XRay Report ---
XR hip 1V RT w pelvis CLINICAL HISTORY: IN PACU - A/P PELVIS and LATERAL HIP . Status post total hip replacement COMPARISON STUDY: No previous studies for comparison. TECHNIQUE: 2 right hip views FINDINGS: The patient is status post total hip replacement. The prosthetic components are in anatomic alignment with no acute abnormality seen. Skin treasure are seen from the recent procedure. IMPRESSION: 1. Status post right total hip replacement. ACT 112: Negative or not required by law. Electronically signed by: Abhi Montenegro M.D. 01/26/2022 9:08 AM
--- NOTE | 2022-01-26 10:07 | Anesthesiology Progress Note ---
Date of Service January 26, 2022 Anesthesia Post Procedure Vital Signs Vital Signs: Temp Pulse Pulse Resp BP Pulse Ox 01/26/22 09:55 63 20 104/69 95 01/26/22 09:45 36.2 C L 83 23 107/68 96 01/26/22 09:35 64 17 106/70 94 01/26/22 09:25 69 18 104/66 97 01/26/22 09:15 70 16 106/70 94 01/26/22 09:05 67 14 102/61 94 01/26/22 08:55 73 16 95/61 L 95 01/26/22 08:45 74 19 91/62 L 96 01/26/22 08:35 76 18 105/68 98 01/26/22 08:29 36.3 C L 81 16 110/81 97 01/26/22 05:52 36.8 C 65 18 158/96 H 98 Transfer of Care Handoff Completed per policy Notes Mental Status: alert / awake / arousable and participated in evaluation Patient Amnestic to Procedure: Yes Nausea / Vomiting: adequately controlled Pain: adequately controlled Airway Patency, RR, SpO2: stable & adequate BP & HR: stable & adequate Hydration State: stable & adequate Neuraxial Anesthesia: was administered and sensory block is resolving Anesthetic Complications: no major complications apparent
[2022-01-26] MEDS ORDERED: MAGNESIUM HYDROXIDE SUSP 30 ML UDC PO PRN (10:09)
[2022-01-26] MEDS ORDERED: NALOXONE HCL 0.4 MG/1 ML VIAL/CARP IV PRN (10:09)
[2022-01-26] MEDS ORDERED: bisacodyL 10 MG SUPP PR PRN (10:09)
[2022-01-26] MEDS ORDERED: NON-FORMULARY MEDICATION (Biotin 1 mg Tablet) PO SCH (10:09)
[2022-01-26] MEDS ORDERED: ALUMINUM/MAGNESIUM SUSP 30 ML UDC PO PRN (10:09)
[2022-01-26] MEDS ORDERED: METOCLOPRAMIDE HCL INJ 5 MG/ML 2 ML VIAL IV PRN (10:09)
[2022-01-26] MEDS ORDERED: HYDROmorphone INJ 0.5 MG/0.5 ML SYR IV PRN (10:09)
[2022-01-26] MEDS: SODIUM CHLORIDE 0.9% 1000ML 1,000 ML IV SCH ×2 (10:18→19:50)
[2022-01-26] MEDS: DOCUSATE SODIUM 100 MG CAP PO SCH ×2 (11:29→21:17)
[2022-01-26] MEDS: CHOLECALCIFEROL 1,000 UNITS 25 MCG TAB PO SCH (11:30)
[2022-01-26] MEDS: CYANOCOBALAMIN (B-12) 500 MCG TABLET PO SCH (11:30)
[2022-01-26] MEDS: MULTIVITAMIN TAB PO SCH (11:30)
[2022-01-26] MEDS: KETOROLAC TROMETHAMINE 15 MG/ML VIAL IV SCH ×2 (11:30→17:47)
[2022-01-26] MEDS: DOCUSATE SODIUM/SENNA 50/8.6MG TAB PO SCH (11:31)
[2022-01-26] MEDS: ACETAMINOPHEN 500 MG TAB PO SCH ×2 (13:32→21:19)
[2022-01-26] MEDS: ceFAZolin 1000MG 1,000 MG/7.5 ML SYR IV SCH ×2 (13:33→21:30)
[2022-01-26] MEDS ORDERED: TRANEXAMIC ACID / 0.7% NACL 1,000 MG/100 ML BAG IV SCH (14:30)
[2022-01-26] MEDS: ASCORBIC ACID 500 MG TAB PO SCH (16:36)
[2022-01-26] MEDS: traMADol HCL 50 MG TABLET PO PRN (16:36)
[2022-01-26] MEDS ORDERED: SENNA 8.6 MG TAB PO SCH (21:00)
[2022-01-27] MEDS: KETOROLAC TROMETHAMINE 15 MG/ML VIAL IV SCH ×2 (00:37→05:56)
[2022-01-27] MEDS: ACETAMINOPHEN 500 MG TAB PO SCH (05:55)
[2022-01-27] MEDS ORDERED: LEVOTHYROXINE SODIUM 100 MCG TABLET PO SCH (06:30)
[2022-01-27] MEDS: traMADol HCL 50 MG TABLET PO PRN (07:56)
[2022-01-27 08:05] LABS: Basophils # (auto) 0.03 K/uL (0-0.2); Basophils % (auto) 0.3 %; Eosinophils # (auto) 0.07 K/uL (0-0.5); Eosinophils % (auto) 0.7 %; Hematocrit (blood only) 35.7 % (37-47); Hemoglobin 12.2 g/dL (12.0-16.0); Immature Granulocytes # (auto) 0.03 K/uL (0.00-0.02); Immature Granulocytes % (auto) 0.3 %; Lymphocytes # (auto) 0.75 K/uL (1.2-3.4); Lymphocytes % (auto) 7.7 %; Mean Corpuscular Hemoglobin 31.6 pg (25-34); Mean Corpuscular Hgb Conc 34.2 g/dL (32-36); Mean Corpuscular Volume 92.5 fL (80-100); Mean Platelet Volume 9.8 fL (7.4-10.4); Monocytes # (auto) 1.04 K/uL (0.11-0.59); Monocytes % (auto) 10.6 %; Neutrophils # (auto) 7.87 K/uL (1.4-6.5); Neutrophils % (auto) 80.4 %; Platelet Count 212 K/uL (130-400); RDW Standard Deviation 47.3 fL (36.4-46.3); Red Blood Count 3.86 M/uL (4.2-5.4); White Blood Count 9.79 K/uL (4.8-10.8)
[2022-01-27 08:26] LABS: BUN Creatinine Ratio 17.4 (10-20); Calcium 8.2 mg/dl (8.5-10.1); Creatinine Clr Calc Pharmacy 50.7 ml/min; Est GFR (African American) 75.5 ml/min; Est GFR (Non-African American) 65.2 ml/min; Potassium 3.6 mmol/L (3.5-5.1)
[2022-01-27] MEDS: dexAMETHasone 10 MG in SYRINGE 0 ML IV SCH ×2 (08:59→09:45)
[2022-01-27] MEDS ORDERED: PANTOprazole 40 MG TAB PO SCH (09:00)
[2022-01-27] MEDS ORDERED: METOPROLOL SUCC 50MG EXT REL TAB PO SCH (09:00)
[2022-01-27] MEDS ORDERED: APIXABAN 2.5 MG TAB PO SCH (09:00)
[2022-01-27] MEDS: MULTIVITAMIN TAB PO SCH (09:01)
[2022-01-27] MEDS: CHOLECALCIFEROL 1,000 UNITS 25 MCG TAB PO SCH (09:01)
[2022-01-27] MEDS: DOCUSATE SODIUM/SENNA 50/8.6MG TAB PO SCH (09:01)
[2022-01-27] MEDS: CYANOCOBALAMIN (B-12) 500 MCG TABLET PO SCH (09:01)
[2022-01-27] MEDS: DOCUSATE SODIUM 100 MG CAP PO SCH (09:01)
[2022-01-27] MEDS: ASCORBIC ACID 500 MG TAB PO SCH (09:01)
--- NOTE | 2022-01-27 09:35 | Progress Notes ---
DATE OF SERVICE: 01/27/2022. SUBJECTIVE: A 76-year-old white female postoperative day 1 from a right total hip replacement. She is doing pretty well. She has had some pain when she mobilizes but not much pain in bed. She did no t have a very good night as she just did not get much sleep. Woken up intermittently all the time. No chest pain or shortness of breath. Not feeling dizzy or lightheaded. She really wants to go home . OBJECTIVE: VITAL SIGNS: Temperature 36.9. Vital signs are stable. GENERAL: Shows a pleasant, elderly female. Lying in bed, looks pretty comfortable. LUNGS: Clear to auscultation. HEART: Has a regular rate and rhythm. ABDOMEN: Soft, nontender, nondistended. EXTREMITIES: Grossly neurovascularly intact. Examination of the right lower extremity reveals the leg to be well aligned. Dressing is clean, dry and intact. Thigh is soft and supple. She is neurologically intact. LABORATORY DATA: Labs are pending. ASSESSMENT: A 76-year-old white female postoperative day 1 from a right hip replacement. She is doi ng pretty well orthopedically. She did not get much sleep. She is really hoping to go home. PLAN: 1. DVT prophylaxis includes thigh-high TEDs, SCDs, and she is back on her Eliquis at a prophylactic dose today and a therapeutic dose tomorrow. 2. PT, OT, weightbear as tolerated. Right total hip protocol. 3. Pain control, doing okay with current pain regimen. 4. Disposition: Plan to discharge to home with some home health, as well as her sister's assistance . We will see how therapy goes today. Job ID: [id number]
--- NOTE | 2022-02-01 16:19 | Discharge Summary ---
Date of Service February 01, 2022 Discharge Data Procedures Performed Operation Date: 01/26/22 07:00 Actual Procedures p Right Total Hip Replacement(Right) - Lito Duncan MD Hospital Course (1) S/P total right hip arthroplasty: This patient is a 76 year old patient admitted on 01/26/22 and underwent total hip arthroplasty. She tolerated the procedure well and there were no c omplications. Transferred to the PACU post op and later to the orthopedic floor for further care. She was given ancef for antibiotic prophylaxis. She was also given KALE stockings, SCDs, and eliquis for DVT prophylaxis. Hemoglobin, hematocrit, and vital signs were monitored during her hospital stay and remained stable. Did not require any blood transfusions. There were no complications during her hospital stay. By post op day #1 the patient was tolerating a regular diet, pain was reasonably controlled with oral pain medicine, and she was participating in physical therapy. On post op day #1 the patient was discharged home and set up with home health care. She was given printed discharge instructions including prescriptions for extra strength tylenol, zofran, and tramadol. Continue hip precautions. Continue physical therapy, weight bearing as tolerated. Continue KALE stockings. Follow up approximately 2 weeks post op or sooner if there are problems or concerns. Coding Level of Care Code None Diagnoses S/P total right hip arthroplasty Z96.641
== END 2022-01-27 12:33 | disposition home health service (06) ==
LOC: 3E 05:19 → ASU 05:19
DX: E78.5 Hyperlipidemia, unspecified; E03.9 Hypothyroidism, unspecified; M16.11 Unilateral primary osteoarthritis, right hip; Z87.891 Personal history of nicotine dependence; N18.30 Chronic kidney disease, stage 3 unspecified; Z79.890 Hormone replacement therapy; K21.9 Gastro-esophageal reflux disease without esophagitis; Z88.8 Allergy status to other drugs, medicaments and biological substances; Z79.1 Long term (current) use of non-steroidal anti-inflammatories (NSAID); Z79.01 Long term (current) use of anticoagulants; Z98.890 Other specified postprocedural states; Z79.899 Other long term (current) drug therapy; M65.9 Synovitis and tenosynovitis, unspecified; I12.9 Hypertensive chronic kidney disease with stage 1 through stage 4 chronic kidney disease, or unspecified chronic kidney disease; I48.91 Unspecified atrial fibrillation

== ENCOUNTER 2024-11-20 09:44 | Inpatient (IN) ==
--- NOTE | 2024-11-19 08:35 | Anesthesiology Consultation ---
Date of Service November 19, 2024 Assessment & Plan (1) Encounter for pre-operative examination: Chart Review Chart Review: Acceptable Risk for Surgery and Patient NOT seen in Pre Admission Testing Left limb restriction -Infectious Disease screening: Per PAT nursing assessment on 11/19/24. No known infectious disease contacts in past 10 days or current infectious disease symptoms. No recent travel outside the country. Last seen by cardio 01/30/24= seen for follow up. Hx of near syncope - no issues since 2021. Perhaps due to mild drop in BP when she had a fib. Atrial fibrillation- excellent symptomatic control of a fib with medications. HTN- BP acceptable. SN dysfunction- appears to have SN dysfunction in addition to a fib. Had pauses of 3.5 seconds after conversion from atrial fibrillation - somewhat worrisome - patient denies any symptoms related to it. Does not explain previous episode of near syncope in the past. No issues with meds will continue to mo nitor. Bilateral edema- improved. Follow up in one year History Surgery Operation Date: 11/20/24 12:15 Proposed Procedures p Left Humerus Open Reduction Internal Fixation - Lito Duncan MD Height/Weight Height: 5 ft 3 in Weight: 63.503 kg Allergies Allergy/AdvReac Type Severity Reaction Status Date / Time exemestane Allergy Intermediate HIVES Verified 11/19/24 07:32 Medications Home Medications Medication Instructions Recorded Confirmed Last Taken cholecalciferol (vitamin D3) 25 1,000 units PO QAM 05/30/19 11/19/24 01/25/22 20:00 mcg (1,000 unit) capsule cyanocobalamin (vitamin B-12) 1,000 mcg PO QAM 05/30/19 11/19/24 01/25/22 08:00 1,000 mcg tablet,extended release biotin 1 mg tablet 1 mg PO Q2D 01/21/22 11/19/24 01/25/22 09:00 triamterene 37.5 1 cap PO QAM PRN Leg swelling #90 08/18/23 11/19/24 Unknown mg-hydrochlorothiazide 25 mg caps capsule amoxicillin 500 mg tablet 2,000 mg (4 x 500 mg) PO ONCE #4 10/22/23 11/19/24 Unknown tabs flecainide 50 mg tablet 50 mg PO Q12H #180 tabs 07/26/24 11/19/24 Unknown levothyroxine 100 mcg tablet 100 mcg PO QAM #90 tabs 10/21/24 11/19/24 Unknown metoprolol succinate 50 mg 50 mg PO QAM #90 tabs 10/21/24 11/19/24 Unknown tablet,extended release 24 hr omeprazole 20 mg capsule,delayed 40 mg (2 x 20 mg) PO QAM #180 caps 10/21/24 11/19/24 Unknown release apixaban 5 mg tablet (Eliquis) 5 mg PO BID #60 tabs 11/12/24 11/19/24 Unknown tramadol 50 mg tablet 50 - 100 mg (1 - 2 x 50 mg) PO Q8H 11/18/24 11/19/24 Unknown PRN pain #18 tabs famotidine 40 mg tablet 40 mg PO HS 11/19/24 11/19/24 Unknown Past Medical History Medical History (Updated 11/19/24 @ 09:23 by Noelle Bright PA-C) Anemia Patient denies Mild anemia on 11/18/24 preop labs Arthritis Atrial fibrillation Follows with [place] [facility], on Eliquis/Metoprolol Breast cancer 2009 > LEFT > Radiation, no chemo per patient Carpal tunnel syndrome of right wrist CKD (chronic kidney disease), stage III hx, no longer relevant per pt; "labs are fine now" Difficult intravenous access Dyslipidemia GERD (gastroesophageal reflux disease) Hiatal hernia with GERD Well controlled, stable, denies issues laying flat. History of pancreatitis due to gallbladder HTN (hypertension) Well controlled, stable. Hypothyroidism Limb alert care status Left upper extremity Mesenteric embolus ~2017 > on Eliquis, [place] [facility] [place] Osteopenia Sinus node dysfunction follows with cardio- asymptomatic- currently monitoring Trigger finger (acquired) Past Family History Family History Family/Other Breast cancer Father Pancreatic cancer Colorectal cancer Hypertension Mother Myocardial infarction questionable Hypertension Stroke Grandmother Myocardial infarction Uncle Myocardial infarction Other No family history of adverse response to anesthesia Denies family history of Ovarian cancer Prostate cancer Diabetes Lung cancer Past Surgical History Surgical History H/O oophorectomy unilateral History of cataract surgery BL History of colonoscopy History of esophagogastroduodenoscopy (EGD) History of lumpectomy of both breasts History of total right hip replacement 2021 Hx laparoscopic cholecystectomy Hx of lymph node excision left, limb restriction LUE Social History Smoking Status: Former smoker tobacco type: cigarettes Do You Dip or Chew Tobacco: No Smoking End Date: light smoker, until 30 years ago Hx Alcohol Use: Yes Alcohol type: wine and hard liquor alcohol intake frequency: 0-2 drinks per day Hx Substance Use: No substance use type: does not use Lab Results Anesthesia Preop Results Results Anesthesia Widget: WBC 9.22 K/ul (4.8-10.8) 11/18/24 Hgb 11.6 g/dl (12.0-16.0) L 11/18/24 Hct 35.2 % (37.0-47.0) L 11/18/24 Plt 305 K/uL (130-400) 11/18/24 Na 133 mmol/L (136-145) L 11/18/24 K 4.3 mmol/L (3.5-5.1) 11/18/24 Cl 101 mmol/L (98-107) 11/18/24 CO2 22 mmol/L (21-32) 11/18/24 BUN 22 mg/dl (6-23) 11/18/24 Creat 1.00 mg/dl (0.6-1.2) 11/18/24 Glucose Level 111 mg/dl (70-99(Fasting)) H 11/18/24 TSH 2.788 uIu/ml (0.300-4.500) 11/18/24 Testing Laboratory Results Mild hyperglycemia- Hgb A1C pending from 11/18/24 (lab machine out of order) Electrocardiogram Date: 05/22/24 Poor data quality SB at 56bpm Low voltage QRS Other Testing Event monitor 12/24/2021 Frequent PAF, total burden 28%. Postconversion pauses up to 3.5 seconds
[2024-11-20] MEDS ORDERED: MIDAZOLAM HCL 1 MG/ML 2ML VIAL ONE (10:24)
[2024-11-20] MEDS ORDERED: fentaNYL citrate PF 100 MCG/2 ML VIAL ONE (10:24)
[2024-11-20] MEDS ORDERED: PROPOFOL IV EMULSION 10 MG/ML 20 ML VIAL IV ONE (10:26)
[2024-11-20] MEDS ORDERED: ONDANSETRON INJ 2 MG/ML 2 ML VIAL ONE (10:28)
[2024-11-20] MEDS: METOCLOPRAMIDE HCL 10 MG TABLET PO SCH (10:42)
[2024-11-20] MEDS: ACETAMINOPHEN 500 MG TAB PO SCH ×2 (10:42→22:35)
[2024-11-20] MEDS: CeleBREX 200 MG CAP PO SCH (10:42)
[2024-11-20] MEDS: FAMOTIDINE 20 MG TAB PO SCH (10:42)
[2024-11-20] MEDS: LR 60ML/HR IV SCH (10:42)
[2024-11-20] MEDS: LR 15ML/HR IV SCH (10:43)
[2024-11-20] MEDS: dexAMETHasone**PF** 10 MG/ML VIAL IV SCH (10:47)
[2024-11-20] MEDS ORDERED: ePHEDrine sulfate 50 MG/ML AMP IV PRN (11:35)
[2024-11-20] MEDS ORDERED: fentaNYL citrate PF 100 MCG/2 ML VIAL IV PRN (11:35)
[2024-11-20] MEDS ORDERED: ATROPINE SULFATE 0.1 MG/ML 10ML SYR IV PRN (11:35)
[2024-11-20] MEDS ORDERED: ONDANSETRON INJ 2 MG/ML 2 ML VIAL IV PRN ×2 (11:35→16:29)
[2024-11-20] MEDS ORDERED: BUPIVACAINE 0.5 % 5 MG/1 ML PF 10ML VIAL ONE (11:52)
--- NOTE | 2024-11-20 12:28 | History & Physical Bridge Note ---
Date of Service November 20, 2024 History & Physical Bridge Note I have examined the patient, reviewed the History & Physical and in the interval since the performance of the History & Physical I have noted the following changes of clinical significance: no changes noted
[2024-11-20] MEDS: ceFAZolin 2000MG 2,000 MG/15 ML SYR IV SCH (12:39)
[2024-11-20] MEDS ORDERED: GLYCOPYRROLATE 0.2 MG/ML VIAL ONE ×3 (12:56→14:52)
[2024-11-20] MEDS: TRANEXAMIC ACID 1,000 MG **IV Intra-op IV SCH (13:00)
[2024-11-20] MEDS ORDERED: ePHEDrine sulfate 50 MG/5 ML SYR ONE ×2 (13:02→13:11)
[2024-11-20] MEDS ORDERED: PHENYLEPHRINE HCL 10 MG/ML VIAL ONE (13:11)
[2024-11-20] MEDS ORDERED: DEXAMETHASONE SOD INJ 4 MG/ML VIAL ONE (13:20)
[2024-11-20] MEDS: BUPIVACAINE/EPINEPHRINE 0.5% MPF 1:200,000 30 ML VIAL ONE (14:50)
[2024-11-20] MEDS ORDERED: NEOSTIGMINE METHYLSULFATE 1 MG/ML 10ML VIAL ONE (14:52)
[2024-11-20] MEDS: BUPIVACAINE LIPOSOME 1.3% 133 MG/10 ML VIAL ONE (15:01)
[2024-11-20] MEDS: ROPIV 0.5% 246mg, Ketorolac 30mg, EPINEPHrine 0.5mg in NSS INFIL SCH (15:01)
--- NOTE | 2024-11-20 15:10 | Fluoroscopy Report ---
FL humerus LT 2V CLINICAL HISTORY: LEFT HUMERUS ORIF COMPARISON STUDY: None FLUOROSCOPY TIME: 24 seconds FLUOROSCOPY IMAGES: 2 EXPOSURE DOSE: 1.4 mGy FINDINGS: Intraoperative fluoroscopy was provided for plate-screw fixation of the proximal left humer us. IMPRESSION: Intraoperative fluoroscopy. ACT 112: Negative or not required by law. Electronically signed by: Domingo Gordon M.D. 11/20/2024 3:08 PM
--- NOTE | 2024-11-20 15:30 | Operative Report ---
PG Post Operative Report Pre & Post Diagnosis Operation Date: 11/20/24 12:15 Pre-Op Diagnosis: Left Displaced Proximal Humerus Fracture Post-Op Diagnosis: Left Displaced Proximal Humerus Fracture I identified the patient and participated in the time-out.: Yes Procedure Operation Date: 11/20/24 12:15 Actual Procedures p Left Humerus Open Reduction Internal Fixation(Left) - Lito Duncan MD Surgeon Lito Duncan MD Product Builder Gerald Mane PA-C Estimated Blood Loss 100 Findings Consistent with Post-Op Diagnosis Operative findings were fairly comminuted proximal humeral metaphyseal fracture. There were multiple fracture fragments. Marked displacement. Specimens None Anesthesia Type General Complications none Disposition Accompanied Patient To Recovery: No Indications The patient is an 79-year-old fairly independent female who sustained a fall ankle injury to her left arm several days ago. Exact mechanism is unclear. She had acute onset of pain and discomfort and x-rays related displaced proximal humerus fracture. The fracture is completely displaced. Patient is indicated for surgical management/stabilization. Description of Procedure Operative implants consisted of: 1 Synthes 3.5 proximal humeral locking plate. 2. 3.5 fully threaded cortical lag screws x 2. 3. 3.5 fully threaded cortical cortical screws placed through the plate x 3. 4. 3.5 fully threaded cortical locking screws x 10. The patient was taken to the op room, identified, placed on the operating table in the supine position. All conductors were appropriately padded. IV antibiotics fibra anesthesia team. A general anesthetic was implemented by the anesthesia team. The patient was then placed in the beachchair position using the [employer] shoulder positioner. X-rays brought in to make sure he had adequate radiographs. There was clearly more comminution of the fracture than what was apparent on initial x-rays as there were several fragments. The right shoulder and arm were then scrubbed with Hibiclens, prepped with ChloraPrep and draped in usual sterile fashion. A deltopectoral approach to the approximate was then performed to a slightly curvilinear incision beginning just inferior to the clavicle, over the coracoid and to the deltoid tuberosity and then over the lateral aspect of the humerus. This is an extended approach due to the distal nature of the fracture. Sharp dissection was carried through subcutaneous tissue down to the deltopectoral interval. This interval was developed and taken the cephalic vein medially. The clavipectoral fascia was incised. The deltoid was retracted laterally. I did have to release a large portion of the deltoid off its tuberosity to get adequate reduction and fixation of the fracture. We spent some time piecing this back together. It was held with several K wires and then 2 lag screws were placed across the major fracture fragments. I then placed a Synthes lateral humeral locking plate to the humerus. Was fixed distally with two 3.5 cortical screws and then fixed with 8 cortical locking screws the proximal holes and then 2 additional locking screws distally. X-ray was brought in. The fracture of anatomically aligned. Excellent fixation. Very rigid fixation. All hardware is appropriate length. Attention then drawn toward closing. The wound was irrigated coconuts of irrigation solution. I injected locally with 30 cc of half percent Marcaine with epinephrine. The deltoid and pectoralis fascia were then reapproximated with 0 Vicryl suture in a [id number] fashion. Subcutaneous tissue was then closed with 2 Dexon suture in buried interrupted fashion and the skin was closed with a combination of the treasure and 3-0 nylon suture. A sterile dressing was Xeroform, 4 x 4's, and Tegaderm/OpSite dressings were applied. A postoperative sling was applied. The patient then brought out of general esthesia and transferred to the recovery room in stable condition. Patient tolerated procedure well and there were no complications. Gerald Mane, my physician topographical field assistant, was present for the entire procedure. Assistance was required for proper patient positioning, prepping and draping, surgical exposure, retraction, placement of the hardware, perform the technical details of the operation, closure of the incision site, and placement of postoperative bandage and splint. I attest to the content of the Intraoperative Record and any orders documented therein. Any exceptions are noted below.
--- NOTE | 2024-11-20 15:49 | Anesthesiology Progress Note ---
Date of Service November 20, 2024 Anesthesia Post Procedure Vital Signs Vital Signs: Temp Pulse Pulse Resp BP Pulse Ox O2 Del Method 11/20/24 15:45 58 L 16 118/72 100 Oxymask 11/20/24 15:35 58 L 13 117/73 100 Oxymask 11/20/24 15:25 97.0 F L 66 14 133/89 99 Oxymask 11/20/24 10:32 97.5 F L 59 L 16 178/79 H 98 Room Air O2 Flow Rate 11/20/24 15:45 4 11/20/24 15:35 12 11/20/24 15:25 12 11/20/24 10:32 Pain Intensity Left Arm: Pain Intensity: 0 Transfer of Care Handoff Completed per policy Notes Mental Status: alert / awake / arousable and participated in evaluation Patient Amnestic to Procedure: Yes Nausea / Vomiting: adequately controlled Pain: adequately controlled Airway Patency, RR, SpO2: stable & adequate BP & HR: stable & adequate Hydration State: stable & adequate Anesthetic Complications: no major complications apparent and Pt Satisfied with anesthetic care
[2024-11-20] MEDS ORDERED: METOCLOPRAMIDE HCL INJ 5 MG/ML 2 ML VIAL IV PRN (16:29)
[2024-11-20] MEDS ORDERED: NALOXONE HCL 0.4 MG/1 ML VIAL/CARP IV PRN (16:29)
[2024-11-20] MEDS ORDERED: traMADol HCL 50 MG TABLET PO PRN (16:29)
[2024-11-20] MEDS ORDERED: ALUMINUM/MAGNESIUM SUSP 30 ML UDC PO PRN (16:29)
[2024-11-20] MEDS ORDERED: NON-FORMULARY MEDICATION (Biotin 1 mg Tablet) PO SCH (16:29)
[2024-11-20] MEDS ORDERED: HYDROmorphone INJ 0.5 MG/0.5 ML SYR IV PRN (16:29)
[2024-11-20] MEDS ORDERED: bisacodyL 10 MG SUPP PR PRN (16:29)
[2024-11-20] MEDS ORDERED: MAGNESIUM HYDROXIDE SUSP 30 ML UDC PO PRN (16:29)
[2024-11-20] MEDS ORDERED: TRIAMTERENE/HCTZ 37.5/25MG TAB PO PRN (16:45)
[2024-11-20] MEDS: ASCORBIC ACID 500 MG TAB PO SCH (17:08)
[2024-11-20] MEDS: DOCUSATE SODIUM 100 MG CAP PO SCH (20:39)
[2024-11-20] MEDS: FLECAINIDE ACETATE 100 MG TABLET PO SCH (20:39)
[2024-11-20] MEDS: FAMOTIDINE 40 MG TABLET PO SCH (20:39)
[2024-11-20] MEDS: SENNA 8.6 MG TAB PO SCH (20:39)
[2024-11-20] MEDS ORDERED: Nursing to Pharmacy Communication SCH (22:00)
[2024-11-20] MEDS: ceFAZolin 1000MG 1,000 MG/7.5 ML SYR IV SCH (22:06)
[2024-11-20] MEDS: ACETAMINOPHEN SUSP 325 MG/10.15 ML UDC PO SCH (22:07)
[2024-11-20] MEDS: TRANEXAMIC ACID / 0.7% NACL 1,000 MG/100 ML BAG IV SCH (22:07)
[2024-11-21] MEDS: LEVOTHYROXINE SODIUM 100 MCG TABLET PO SCH (05:38)
[2024-11-21 06:40] VITALS: BP 128/78; PULSE 56; RESP 12; TEMP 98.4; O2SAT 98
--- NOTE | 2024-11-21 07:55 | Orthopedic Progress Note ---
Date of Service November 21, 2024 Assessment & Plan (1) Closed fracture of head of left humerus: Plan: 79-year-old female postop day 1 from ORIF of a comminuted displaced proximal numerous fracture doing quite well. Pains controlled. She is neurologically intact. Plan: 1. DVT prophylaxis including thigh-high teds, SCDs, and she will start back on her Eliquis tomorrow. 2. PT/OT. Gentle lateral wrist elbow and hand range of motion exercises. She can do some pendulum exercises. Do not really want any active motion of the shoulder yet. 3 pain control doing okay with current pain regimen. Really no significant pain to report. 4. Anticoagulation. Will start her back on Eliquis tomorrow. 5. Disposition. Plan is to discharge to home today. Admission and Anticipated Discharge Date Admission Date: November 20, 2024 Subjective 79-year-old female postop day 1 from ORIF of comminuted displaced proximal humerus fracture. She is doing quite well this morning. Reports no significant pain. No chest pain or shortness of breath. Not feeling dizzy or lightheaded. Physical Exam Physical Exam: Physical examinationReveals a pleasant elderly female. That she is lying bed looks pretty comfortable. Examination of the left arm reveals the dressing be clean dry and intact. Some moderate swelling but improved. She can flex extend her fingers and wrist appropriately. She is neurologically intact. Respiratory: normal respiratory effort, lungs clear to auscultation Cardiovascular: RRR, no murmur, no edema Results & Data Vital Signs (Past 12 Hours) Vital Signs Temp Pulse Resp BP Pulse Ox O2 Del Method 11/21/24 06:40 36.9 C 56 L 12 128/78 98 Room Air 11/21/24 02:00 36.8 C 58 L 18 118/73 97 Room Air 11/20/24 22:29 36.6 C 62 18 125/87 96 Room Air Laboratory Results Labs are pending. (1) Closed fracture of head of left humerus Encounter type: initial encounter Qualified Code(s): S42.292A - Other displaced fracture of upper end of left humerus, initial encounter for closed fracture
[2024-11-21] MEDS: MULTIVITAMIN TAB PO SCH (08:06)
[2024-11-21] MEDS: PANTOprazole 40 MG TAB PO SCH (08:07)
[2024-11-21] MEDS: METOPROLOL SUCC 50MG EXT REL TAB PO SCH (08:07)
[2024-11-21] MEDS: CHOLECALCIFEROL 25 MCG (1000 UNITS) TAB PO SCH (08:08)
[2024-11-21] MEDS: CYANOCOBALAMIN (B-12) 500 MCG TABLET PO SCH (08:08)
[2024-11-21] MEDS: dexAMETHasone 10 MG in SYRINGE 0 ML IV SCH (08:52)
[2024-11-21] MEDS ORDERED: APIXABAN 5 MG TABLET PO SCH (16:00)
--- NOTE | 2024-11-25 07:47 | Discharge Summary ---
Date of Service November 25, 2024 Principal Diagnosis Same as "Discharge Diagnosis" noted below under Discharge Instructions. Discharge Data Procedures Performed Operation Date: 11/20/24 12:15 Actual Procedures p Left Humerus Open Reduction Internal Fixation(Left) - Lito Duncan MD Ordered Studies 11/20/24 FL humerus LT 2V Routine 11/20/24 05:00 US - OR guided needle placemen Routine Hospital Course (1) Closed fracture of head of left humerus: This is a 79 year old patient admitted on 11/20/24 and underwent ORIF of the left proximal humerus fracture. She tolerated the procedure well and there were no complications. Transferred to the PACU post op and later to the orthopedic floor for further care. She was given ancef for antibiotic prophylaxis. She was also given KALE stockings, SCDs, and eliquis for DVT prophylaxis. Vital signs were monitored during her hospital stay and remained stable. Did not require any blood transfusions. There were no complications during her hospital stay. By post op day #1 the patient was tolerating a regular diet, pain was reasonably controlled with oral pain medicine, and she was participating in physical therapy. On post op day #1 the patient was discharged home and set up with home health care. She was given printed discharge instructions including prescriptions for tramadol. Continue physical therapy, with elbow, wrist and hand range of motion and shoulder pendulum exercises. Follow up approximately 2 weeks post op or sooner if there are problems or concerns. Encounter type: initial encounter Qualified Code(s): S42.292A - Other displaced fracture of upper end of left humerus, initial encounter for closed fracture PG Care Time/CCT Total # of Minutes Spent Total Time Spent with Patient: : Discharge Plan Discharge Items Patient Disposition: Home - Home Health Services Reason For Visit: Left Displaced Proximal Humerus Fracture Discharge Diagnosis: ORIF Right Humerus Fracture Activity: Per Instructions section Activity Comment: Wrist, hand, and elbow exercises 3X per day. Bathing Comment: May shower/Bathe. Keep direct shower pressure off left shoulde r. Non-emergency contact: Surgeon Call non-emergency contact if: you have any medication questions Follow-up/Referrals: Travis Valencia MD [Primary Care Provider] - Diet: Regular Addtl Attending Provider Instructions: Range of Motion exercises left elbow, hand and wrist 3X per day. Gentle Shoulder Pendulum exercises 3X per day. Leave dressing in place for 3 days and then change daily with dry dressing change daily. Pending Studies at Discharge: No Stand-Alone Forms: [facility] [employer], Smoking Cessation Medications and DC Order Prescriptions: Continued triamterene-hydrochlorothiazid 37.5-25 mg capsule 1 cap PO QAM PRN (Reason: Leg swelling) Qty: 90 3RF amoxicillin 500 mg tablet 2,000 mg PO ONCE Qty: 4 3RF Rx Instructions: 4 tabs 1 hour prior to procedure flecainide 50 mg tablet 50 mg PO Q12H Qty: 180 1RF metoprolol succinate 50 mg tablet extended release 24 hr 50 mg PO QAM Qty: 90 3RF omeprazole 20 mg capsule,delayed release(DR/EC) 40 mg PO QAM Qty: 180 3RF levothyroxine 100 mcg tablet 100 mcg PO QAM Qty: 90 3RF Eliquis 5 mg tablet 5 mg PO BID Qty: 60 11RF tramadol 50 mg tablet 50 - 100 mg PO Q8H PRN (Reason: pain) Qty: 18 0RF cyanocobalamin (vitamin B-12) 1,000 mcg tablet extended release 1,000 mcg PO QAM cholecalciferol (vitamin D3) 1,000 unit capsule 1,000 units PO QAM biotin 1 mg Tablet 1 mg PO Q2D famotidine 40 mg Tablet 40 mg PO HS Discharge Orders: Discharge Order (Routine); Ordered 11/21/24 Ordered By: Lito Gaspar/Other Patient Handouts: Understanding a Humerus Fracture, ED Sling Admission Data Admit Date/Time: 11/20/24 15:28 Attending Provider: Lito Duncan Admit Provider: Lito Duncan Primary Care Provider: Travis Valencia Other Providers: [facility] Other Interventions: Discharge Summary Assessment (RN) Last Done: 11/21/24 13:11
== END 2024-11-21 13:38 | disposition home health service (06) | DRG 494 ==
LOC: ASU 09:44 → 3E 15:28